=== PATIENT | male | born 1950 | race Caucasian/White ===

== ENCOUNTER 2016-10-30 14:53 | Inpatient (IN) | payer BC ==
--- NOTE | 2016-10-30 15:55 | EDM.PDOC ---
ED HISTORY OF PRESENT ILLNESS - General Chief Complaint: Respiratory Problem Stated Complaint: SOB Time Seen by Provider: 10/30/16 15:30 Source: Reports: Patient, Family, Provider History Limitations: Reports: No limitations - History of Present Illness INITIAL COMMENTS - FREE TEXT/NARRATIVE: 66-year-old male who arrived to the clinic for a surgical consultation for a possible paracentesis or thoracentesis was too short of breath and appeared unstable and anxious so was transferred to the emergency room. He is concerned that he is progressively becoming more weak, more edematous, more short of breath and not responding to his nebulizers, inhalers etc. His abdomen continues to feel distended and bloated. No fevers or chills. Denies nausea or vomiting. Severity: moderate Location, General: Reports: chest, abdomen Worsens with: Reports: Other (very little activity tolerance), Movement Associated Symptoms: Reports: cough, malaise, shortness of breath, weakness. Denies: fever/chills - Related Data Allergies/ADRs: Allergies Allergy/AdvReac Type Severity Reaction Status Date / Time multiple environmental Allergy Difficulty Uncoded 10/30/16 15:25 Breathing Home Meds: Home Meds Albuterol Sulfate [Proair Hfa] 1 - 2 puff INH Q4H PRN 10/30/16 [History] Calcium Carbonate 600 mg PO DAILY 10/30/16 [History] Cholecalciferol (Vitamin D3) [Vitamin D3] 1,000 mg PO DAILY 10/30/16 [History] Fluticasone Propionate [Flonase Allergy Relief] 2 spray RUSSELL DAILY 10/30/16 [ History] Folic Acid 1 mg PO DAILY 10/30/16 [History] Furosemide 20 mg PO DAILY 10/30/16 [History] Ipratropium/Albuterol Sulfate [Iprat-Albut 0.5-3(2.5) MG/3 ML] 1 puff INH Q4H PRN 10/30/16 [History] Multivitamin [Multivitamins] 1 tab PO DAILY 10/30/16 [History] Potassium Chloride 20 meq PO DAILY 10/30/16 [History] Spironolactone [Aldactone] 50 mg PO DAILY 10/30/16 [History] Thiamine [Vitamin B-1] 100 mg PO DAILY 10/30/16 [History] predniSONE [Prednisone] 40 mg PO ASDIRECTED 10/30/16 [History] Past Medical History HEENT History: Reports: Allergic rhinitis, Cataract Cardiovascular History: Reports: PVD, Other (see below) Other Cardiovascular History: anasarca Respiratory History: Reports: Asthma, Pneumonia, recurrent Gastrointestinal History: Reports: Cirrhosis, GERD, GI bleed, PUD, Other (see below) Other Gastrointestinal History: ascities Musculoskeletal History: Reports: Back pain, chronic, Osteoarthritis Other Musculoskeletal History: Compression fx back March 2016. Neurological History: Reports: Concussion, Head trauma Psychiatric History: Reports: Addiction Endocrine/Metabolic History: Reports: Obesity/BMI 30+ Dermatologic History: Reports: Venous stasis dermatitis - Infectious Disease History Infectious Disease History: Reports: Chicken pox, Measles, Mumps - Past Surgical History HEENT Surgical History: Reports: Cataract surgery GI Surgical History: Reports: EGD Social & Family History - Tobacco Use Smoking Status *Q: Former Smoker Years of Tobacco use: 10 Packs/Tins Daily: 1 Used Tobacco, but Quit: Yes Month Tobacco Last Used: 15year Second Hand Smoke Exposure: No - Alcohol Use Days Per Week of Alcohol Use: 7 Number of Drinks Per Day: 5 Total Drinks Per Week: 35 - Recreational Drug Use Recreational Drug Use: Yes Drug Use in Last 12 Months: No Recreational Drug Type: Reports: Marijuana/Hashish Recreational Drug Use Frequency: Not Used In Over 1 Year ED ROS GENERAL - Review of Systems Review Of Systems: See Below Constitutional: Reports: malaise, weakness. Denies: fever HEENT: Reports: Other (his tongue "hurts and swells after one of his medicines" ) Respiratory: Reports: shortness of breath, wheezing, cough Cardiovascular: Denies: Chest pain GI/Abdominal: Denies: Abdominal pain, Nausea, Vomiting : Reports: no symptoms Musculoskeletal: Denies: back pain (compression fracture has healed) Neurological: Reports: weakness. Denies: headache, syncope Psychiatric: Reports: No symptoms ED EXAM, GENERAL - Physical Exam Exam: See Below Exam Limited By: No limitations General Appearance: alert, mild distress (patient looks uncomfortable, somewhat labored respiratory effort) Eye Exam: bilateral eye: EOMI Throat/Mouth: Normal inspection Respiratory/Chest: respiratory distress (mild respiratory distress, increased effort), decreased breath sounds (decreased breath sounds at the left base), rhonchi (diffuse rhonchi and wheezes are heard bilaterally) Cardiovascular: irregularly irregular GI/Abdominal: distended, other (abdomen is firm, distended but nontender). No: tender Extremities: other (significant diffuse extremity edema with thickened leathery skin and some erythema and venous stasis change. Some edema of the upper extremities as well) Neurological: alert Psychiatric: normal affect Skin Exam: Erythema (lower extremities), Lymphangitis (lower extremities), Other (scattered bruises on the upper extremities) Course - Vital Signs Last Recorded V/S: Last Vital Signs Temp 97.8 F 10/31/16 07:20 Pulse 99 10/31/16 07:20 Resp 18 10/31/16 07:20 BP 133/81 10/31/16 07:20 Pulse Ox 100 10/31/16 07:20 - Orders/Labs/Meds Orders: Active Orders 24 hr Category Date Time Status Abdomen Ltd [US] Stat Exams 10/30/16 15:13 Taken Chest 1V Frontal [CR] Stat Exams 10/30/16 15:19 Taken EKG 12 Lead [EK] Routine Ther 10/30/16 15:57 Stop Req Medication Orders Acetaminophen (Tylenol) 650 mg PO Q4H PRN PRN Reason: Pain (Mild 1-3)/fever Last Admin: 10/31/16 00:08 Dose: 650 mg Albuterol (Ventolin Hfa) 0 gm INH Q4H PRN PRN Reason: sob Albuterol (Proventil Neb Soln) 2.5 mg NEB Q4H PRN PRN Reason: Shortness Of Breath/wheezing Albuterol/Ipratropium (Duoneb 3.0-0.5 Mg/3 Ml) 3 ml INH QIDRT [facility] Last Admin: 10/31/16 07:14 Dose: 3 ml Admin: 10/30/16 21:05 Dose: 3 ml Amoxicillin/Clavulanate Potassium (Augmentin 875 Mg/125 Mg) 1 tab PO BID [facility] Last Admin: 10/30/16 21:06 Dose: 1 tab Cholecalciferol (Vitamin D3) 1,000 units PO DAILY [facility] Fluticasone Propionate (Flonase) 0 gm RUSSELL DAILY [facility] Folic Acid (Folic Acid) 1 mg PO DAILY [facility] Guaifenesin (Mucinex) 600 mg PO BID [facility] Last Admin: 10/30/16 21:06 Dose: 600 mg Sodium Chloride (Normal Saline) 85 mls @ 3.5 mls/sec IV ASDIRECTED NEO Last Admin: 10/31/16 08:02 Dose: 3.5 mls/sec Iopamidol (Isovue-300 (61%)) 150 ml IV . DIRECTED PRN PRN Reason: RADIOLOGY EXAM Stop: 11/01/16 07:12 Last Admin: 10/31/16 08:02 Dose: 150 ml Multivitamins/Minerals (Thera M Plus) 1 tab PO DAILY [facility] Ondansetron HCl (Zofran Odt) 4 mg PO Q6H PRN PRN Reason: Nausea able to take PO Pantoprazole Sodium (Protonix) 40 mg PO ACBREAKFAST [facility] Prednisone (Prednisone) 40 mg PO DAILY [facility] Sodium Chloride (Saline Flush) 10 ml FLUSH ASDIRECTED PRN PRN Reason: Keep Vein Open Thiamine HCl (Vitamin B-1) 100 mg PO DAILY [facility] Labs: Laboratory Tests 10/30/16 10/30/16 Range/Units 15:35 15:35 WBC 10.3 (4.5-11.0) K/uL RBC 3.90 L (4.30-5.90) M/uL Hgb 13.4 (12.0-15.0) g/dL Hct 38.9 L (40.0-54.0) % MCV 100 H (80-98) fL MCH 34 H (27-31) pg MCHC 34 (32-36) % Plt Count 80 L (150-400) K/uL Neut % (Auto) 81 H (36-66) % Lymph % (Auto) 5 L (24-44) % [place] % (Auto) 13 H (2-6) % Eos % (Auto) 0 L (2-4) % Baso % (Auto) 0 (0-1) % Sodium 137 L (140-148) mmol/L Potassium 3.9 (3.6-5.2) mmol/L Chloride 99 L (100-108) mmol/L Carbon Dioxide 32 (21-32) mmol/L Anion Gap 9.9 (5.0-14.0) mmol/L BUN 16 D (7-18) mg/dL Creatinine 1.3 D (0.8-1.3) mg/dL Est Cr Clr Drug Dosing 60.89 mL/min Estimated GFR (MDRD) 56 L (>60) Glucose 140 H (74-106) mg/dL Calcium 8.0 L (8.5-10.1) mg/dL Total Bilirubin 2.6 H (0.2-1.0) mg/dL AST 55 H (15-37) U/L ALT 52 (12-78) U/L Alkaline Phosphatase 166 H (46-116) U/L Ofd-L-Ccmgderbtjl Pept 299 H (5-125) pg/mL Total Protein 6.1 L (6.4-8.2) g/dL Albumin 1.9 L (3.4-5.0) g/dL Globulin 4.2 H (2.3-3.5) g/dL Albumin/Globulin Ratio 0.5 L (1.2-2.2) Meds: Medications Generic Name Dose Route Start Last Admin Trade Name Freq PRN Reason Stop Dose Admin Acetaminophen 650 mg 10/30/16 18:07 10/31/16 00:08 Tylenol PO 650 mg Q4H PRN Administration Pain (Mild 1-3)/fever Albuterol 0 gm 10/30/16 18:07 Ventolin Hfa INH Q4H PRN sob Albuterol 2.5 mg 10/30/16 18:07 Proventil Neb Soln NEB Q4H PRN Shortness Of Breath/wheezing Albuterol/Ipratropium 3 ml 10/30/16 21:00 10/31/16 07:14 Duoneb 3.0-0.5 Mg/3 Ml INH 3 ml QIDRT NEO Administration Amoxicillin/Clavulanate Potassium 1 tab 10/30/16 21:00 10/30/16 21:06 Augmentin 875 Mg/125 Mg PO 1 tab BID NEO Administration Cholecalciferol 1,000 units 10/31/16 09:00 Vitamin D3 PO DAILY [facility] Fluticasone Propionate 0 gm 10/31/16 09:00 Flonase RUSSELL DAILY [facility] Folic Acid 1 mg 10/31/16 09:00 Folic Acid PO DAILY [facility] Guaifenesin 600 mg 10/30/16 21:00 10/30/16 21:06 Mucinex PO 600 mg BID NEO Administration Sodium Chloride 85 mls @ 3.5 mls/sec 10/31/16 07:15 10/31/16 08:02 Normal Saline IV 3.5 mls/sec ASDIRECTED NEO Administration Iopamidol 150 ml 10/31/16 07:11 10/31/16 08:02 Isovue-300 (61%) IV 11/01/16 07:12 150 ml . DIRECTED PRN Administration RADIOLOGY EXAM Multivitamins/Minerals 1 tab 10/31/16 09:00 Thera M Plus PO DAILY [facility] Ondansetron HCl 4 mg 10/30/16 18:07 Zofran Odt PO Q6H PRN Nausea able to take PO Pantoprazole Sodium 40 mg 10/31/16 07:30 Protonix PO ACBREAKFAST NEO Prednisone 40 mg 10/31/16 09:00 Prednisone PO DAILY [facility] Sodium Chloride 10 ml 10/30/16 18:07 Saline Flush FLUSH ASDIRECTED PRN Keep Vein Open Thiamine HCl 100 mg 10/31/16 09:00 Vitamin B-1 PO DAILY NEO Discontinued Medications Generic Name Dose Route Start Last Admin Trade Name Freq PRN Reason Stop Dose Admin Albuterol/Ipratropium 3 ml 10/30/16 15:57 10/30/16 16:12 Duoneb 3.0-0.5 Mg/3 Ml NEB 10/30/16 15:58 3 ml ONETIME ONE Administration Fluticasone Propionate 0 gm 10/31/16 09:00 Flonase RUSSELL DAILY [facility] Sodium Chloride 1,000 mls @ 125 mls/hr 10/30/16 18:07 Normal Saline IV 10/31/16 02:08 ASDIRECTED NEO Lidocaine HCl 10 ml 10/30/16 23:33 10/30/16 23:49 Xylocaine 2% Jelly MUCMEM 10/30/16 23:34 10 ml ONETIME ONE Administration Methylprednisolone Sodium Succinate 62.5 mg 10/30/16 18:00 10/31/16 02:12 Solu-Medrol IVPUSH 10/31/16 02:01 62.5 mg Q8H NEO Administration Sodium Chloride 10 ml 10/31/16 07:11 10/31/16 08:01 Saline Flush FLUSH 10/31/16 07:12 10 ml ONETIME ONE Administration - Re-Assessments/Exams Free Text/Narrative Re-Assessment/Exam: 10/30/16 16:00 Dr. Caputo of the surgical department briefly assessed the patient, an ultrasound of the abdomen was obtained that showed moderate ascites. threat monitoring analyst showed what appeared to be a sinus rhythm with frequent PACs so an EKG was done to rule out atrial fibrillation. CBC CMP BNP along with a 1 view chest x-ray was obtained. Chest x-ray did not show significant effusions. EKG showed sinus rhythm with numerous PACs. 10/30/16 16:19 hemoglobin and white count were normal. Bilirubin was 2.6, AST 55, alkaline phosphatase was elevated. Creatinine is 1.3 and GFR 56. This patient will be admitted for gentle hydration overnight followed by a CT scan and possible pleurocentesis tomorrow. I suspect his main underlying disease processes is cirrhosis. Dr. Robbins of the hospitalist service was consulted for evaluation and admission. Departure - Departure Time of Disposition: 18:31 Disposition: Admitted As Inpatient 68 Condition: fair Clinical Impression: COPD exacerbation, Peripheral edema, Hyperbilirubinemia Ascites Qualifiers: Ascites type: other type Qualified Code(s): R18.8 - Other ascites - My Orders Last 24 Hours: My Active Orders 10/30/16 15:19 Chest 1V Frontal [CR] Stat 10/30/16 15:57 EKG 12 Lead [EK] Routine - Assessment/Plan Last 24 Hours: My Active Orders 10/30/16 15:19 Chest 1V Frontal [CR] Stat 10/30/16 15:57 EKG 12 Lead [EK] Routine
[2016-10-30] MEDS ORDERED: Albuterol/Ipratropium 3.0-0.5 MG/3 ML Neb Soln NEB ONE (15:57)
--- NOTE | 2016-10-30 17:18 | PCM.HP ---
H&P History of Present Illness - General Date of Service: 10/30/16 Admit Problem/Dx: Admission Diagnosis/Problem Admission Diagnosis/Problem Acute bronchitis Source of Information: Patient, Family, Provider History Limitations: Reports: No limitations - History of Present Illness Initial Comments - Free Text/Narative: Barry presents to the emergency room from the neurosurgery clinic where he was sent for possible thoracentesis. He was noted to be very short of breath and was sent to the emergency room for evaluation. He reports that he has been short of breath for a couple of months but things have been getting worse over the past week or so. he is short of breath with even minimal exertion. He has a loose cough but does not produce much sputum. Occasionally he does have some mild clear sputum. He does not have chest pain or pleuritic chest pain. He doesn't think he's had fevers or chills at home. He has not been around anybody sick that he is aware of. He has noticed a significant weight gain and progressive lower extremity edema as well as edema of his abdominal wall over the past 2 months. He does not report orthopnea or PND. He was recently diagnosed with cirrhosis and started on spironolactone and furosemide. His appetite has been okay. He does not report heartburn symptoms or nausea. He has had an mild diarrhea recently but this seems to have resolved. He reports that everything was fairly normal up until and after that he has had a fairly rapid decline. Workup in the emergency room has included laboratory testing and a chest x-ray. He also had an abdominal ultrasound to look for ascites. Laboratory studies reveal thrombocytopenia, elevated bilirubin, probable acute kidney injury and mildly elevated BNP. Chest x-ray does not show evidence for infection or effusion. Abdominal ultrasound shows only mild ascites. He is wheezing and very symptomatic with probable COPD exacerbation and will be admitted for management of COPD exacerbation as well as expedited cirrhosis workup. Denies Pain Score (Numeric/FACES): 0 - Related Data Allergies/Adverse Reactions: Allergies Allergy/AdvReac Type Severity Reaction Status Date / Time multiple environmental Allergy Difficulty Uncoded 10/30/16 15:25 Breathing Home Medications: Home Meds Albuterol Sulfate [Proair Hfa] 1 - 2 puff INH Q4H PRN 10/30/16 [History] Calcium Carbonate 600 mg PO DAILY 10/30/16 [History] Cholecalciferol (Vitamin D3) [Vitamin D3] 1,000 mg PO DAILY 10/30/16 [History] Fluticasone Propionate [Flonase Allergy Relief] 2 spray RUSSELL DAILY 10/30/16 [ History] Folic Acid 1 mg PO DAILY 10/30/16 [History] Furosemide 20 mg PO DAILY 10/30/16 [History] Ipratropium/Albuterol Sulfate [Iprat-Albut 0.5-3(2.5) MG/3 ML] 1 puff INH Q4H PRN 10/30/16 [History] Multivitamin [Multivitamins] 1 tab PO DAILY 10/30/16 [History] Potassium Chloride 20 meq PO DAILY 10/30/16 [History] Spironolactone [Aldactone] 50 mg PO DAILY 10/30/16 [History] Thiamine [Vitamin B-1] 100 mg PO DAILY 10/30/16 [History] predniSONE [Prednisone] 40 mg PO ASDIRECTED 10/30/16 [History] Past Medical History HEENT History: Reports: Allergic rhinitis, Cataract Cardiovascular History: Reports: PVD, Other (see below) Other Cardiovascular History: anasarca Respiratory History: Reports: Asthma, Pneumonia, recurrent Gastrointestinal History: Reports: Cirrhosis, GERD, GI bleed, PUD, Other (see below) Other Gastrointestinal History: ascities Musculoskeletal History: Reports: Back pain, chronic, Osteoarthritis Other Musculoskeletal History: Compression fx back March 2016. Neurological History: Reports: Concussion, Head trauma Psychiatric History: Reports: Addiction Endocrine/Metabolic History: Reports: Obesity/BMI 30+ Dermatologic History: Reports: Venous stasis dermatitis - Infectious Disease History Infectious Disease History: Reports: Chicken pox, Measles, Mumps - Past Surgical History HEENT Surgical History: Reports: Cataract surgery GI Surgical History: Reports: EGD Social & Family History - Family History GI: Denies: Cirrhosis - Tobacco Use Smoking Status *Q: Former Smoker Years of Tobacco use: 10 Packs/Tins Daily: 1 Used Tobacco, but Quit: Yes Month Tobacco Last Used: 15year Second Hand Smoke Exposure: No - Caffeine Use Caffeine Use: Reports: Coffee, Soda - Alcohol Use Days Per Week of Alcohol Use: 7 Number of Drinks Per Day: 5 Total Drinks Per Week: 35 Date of Last Drink: 03/30/16 Time of Last Drink: 02:00 - Recreational Drug Use Recreational Drug Use: Yes Drug Use in Last 12 Months: No Recreational Drug Type: Reports: Marijuana/Hashish Recreational Drug Use Frequency: Not Used In Over 1 Year H&P Review of Systems - Review of Systems: Review Of Systems: See Below Free Text/Narrative: A complete 12 point review of systems was obtained. Pertinent positives and negatives are noted in the history of present illness. All other systems were reviewed and were negative except as noted. Exam - Exam Exam: See Below - Vital Signs Vital Signs: Last Vital Signs Temp 36.7 C 10/30/16 16:14 Pulse 114 H 10/30/16 16:14 Resp 21 H 10/30/16 16:14 BP 155/75 H 10/30/16 16:14 Pulse Ox 90 L 10/30/16 16:14 Weight: 108.86 kg - Exam Quality Assessment: No: supplemental oxygen, urinary catheter General: alert, oriented, cooperative. No: mild distress HEENT: PERRLA, Conjunctiva clear, Posterior pharynx clear, Scleral icterus. No : Mucosa moist & pink (dry) Neck: supple, trachea midline. No: lymphadenopathy, JVD, thyromegaly Lungs: Clear to auscultation, Normal respiratory effort Cardiovascular: regular rhythm, tachycardia, systolic murmur (llsb) Abdomen: normal bowel sounds, soft, distention. No: tenderness, mass Back Exam: normal inspection, full range of motion Extremities: edema (pitting edema to mid abdomen with massive pitting edema of both legs). No: cyanosis Skin: warm, dry, other (chronic venous stasis changes both lower legs) Neuro Extensive - Mental Status: alert, oriented x3, nl response to commands Neuro Extensive - Motor, Sensory, Reflexes: CN II-XII intact. No: dysarthria, abnormal motor, tremor Psychiatric: alert, normal affect, normal mood - Patient Data Lab Results last 24 hrs: Laboratory Results - last 24 hr 10/30/16 10/30/16 Range/Units 15:35 15:35 WBC 10.3 (4.5-11.0) K/uL RBC 3.90 L (4.30-5.90) M/uL Hgb 13.4 (12.0-15.0) g/dL Hct 38.9 L (40.0-54.0) % MCV 100 H (80-98) fL MCH 34 H (27-31) pg MCHC 34 (32-36) % Plt Count 80 L (150-400) K/uL Neut % (Auto) 81 H (36-66) % Lymph % (Auto) 5 L (24-44) % [place] % (Auto) 13 H (2-6) % Eos % (Auto) 0 L (2-4) % Baso % (Auto) 0 (0-1) % Sodium 137 L (140-148) mmol/L Potassium 3.9 (3.6-5.2) mmol/L Chloride 99 L (100-108) mmol/L Carbon Dioxide 32 (21-32) mmol/L Anion Gap 9.9 (5.0-14.0) mmol/L BUN 16 D (7-18) mg/dL Creatinine 1.3 D (0.8-1.3) mg/dL Est Cr Clr Drug Dosing 60.89 mL/min Estimated GFR (MDRD) 56 L (>60) Glucose 140 H (74-106) mg/dL Calcium 8.0 L (8.5-10.1) mg/dL Total Bilirubin 2.6 H (0.2-1.0) mg/dL AST 55 H (15-37) U/L ALT 52 (12-78) U/L Alkaline Phosphatase 166 H (46-116) U/L [id number] Pept 299 H (5-125) pg/mL Total Protein 6.1 L (6.4-8.2) g/dL Albumin 1.9 L (3.4-5.0) g/dL Globulin 4.2 H (2.3-3.5) g/dL Albumin/Globulin Ratio 0.5 L (1.2-2.2) Result Diagrams: 10/30/16 15:35 10/30/16 15:35 Imaging Impressions last 24 hrs: CXR - images personally reviewed - no evidence of mass, infiltrate or effusion. EKG INTERPRETATION EKG Date: 10/30/16 Rhythm: other (sinus tachycardia with PACs) Rate (beats/min): 106 [place]: normal P-wave: variable QRS: normal ST-T: normal QT: normal *Q Meaningful Use (ADM) - VTE *Q VTE Criteria *Q: VTE Pharmacological Contraindications *Q: Thrombocytopenia - Stroke *Q Stroke Criteria *Q: - AMI *Q AMI Criteria *Q: - Problem List (1) Acute bronchitis SNOMED Code(s): 45217722 ICD Code: J20.9 - ACUTE BRONCHITIS, UNSPECIFIED Status: Acute Current Visit: Yes (2) Acute exacerbation of chronic obstructive airways disease SNOMED Code(s): 600576261 ICD Code: J44.1 - CHRONIC OBSTRUCTIVE PULMONARY DISEASE W (ACUTE) EXACERBATION Status: Acute Current Visit: Yes (3) Cirrhosis of liver SNOMED Code(s): 13714753 ICD Code: K74.60 - UNSPECIFIED CIRRHOSIS OF LIVER Status: Acute Current Visit: Yes Qualifiers: Hepatic cirrhosis type: unspecified hepatic cirrhosis Ascites presence: with ascites Qualified Code(s): K74.60 - Unspecified cirrhosis of liver (4) Anasarca SNOMED Code(s): 018898383, 377488141 ICD Code: R60.1 - GENERALIZED EDEMA Status: Acute Current Visit: Yes (5) Acute kidney injury SNOMED Code(s): 72663987 ICD Code: N17.9 - ACUTE KIDNEY FAILURE, UNSPECIFIED Status: Acute Current Visit: Yes (6) Hyperbilirubinemia SNOMED Code(s): 33667735 ICD Code: E80.6 - OTHER DISORDERS OF BILIRUBIN METABOLISM Status: Acute Current Visit: Yes Problem List Initiated/Reviewed/Updated: Yes Orders Last 24hrs: Active Orders 24 hr Category Date Time Status Patient Status Manage Transfer [TRANSFER] Routine ADT 10/30/16 17:02 Ordered EKG Documentation Completion [RC] ASDIRECTED Care 10/30/16 15:57 Active RT Aerosol Therapy [RC] ASDIRECTED Care 10/30/16 15:57 Active Abdomen Ltd [US] Stat Exams 10/30/16 15:13 Taken Chest 1V Frontal [CR] Stat Exams 10/30/16 15:19 Taken Resuscitation Status Routine Resus Stat 10/30/16 17:04 Ordered EKG 12 Lead [EK] Routine Ther 10/30/16 15:57 Ordered Assessment/Plan Comment:: Assessment and plan - Acute bronchitis with acute exacerbation of asthma/COPD - remote history of tobacco dependence and also history of asthma. Unclear if viral or bacterial or possibly related to pulmonary edema at this time though chest x-ray does not reveal significant edema. I'm suspicious with a long duration of symptoms followed by more rapid worsening that he may have an acute bacterial infection following a viral infection. He has failed outpatient therapy with azithromycin. Is not hypoxic but has significant wheezing. -Augmentin -IV steroids this evening and prednisone tomorrow -Scheduled and as needed nebulizers -Supplement oxygen if needed -CT scan of the chest with greater than 2 months of symptoms Cirrhosis - alcoholic cirrhosis is suspected though he has an elevated albumin: protein gradient at could suggest paraproteinemia. No strong risk factors for hepatitis. he has not been on concerning medications recently. Recently diagnosed and diuretics have been initiated but there has not been any advanced imaging as of yet. Patient currently shows evidence for intravascular volume depletion. complicated by thrombocytopenia and elevated bilirubin. -hold diuretics -Gentle IV fluids -CT scan of the abdomen and pelvis in the morning -Workup for paraproteinemia in the morning -hepatitis serologies Anasarca - probably related to liver disease. Currently has intravascular volume depletion and diuretics will need to be held. I will employ mechanical methods including ULISES wraps of the legs. Plan to start with lower legs tonight and add size tomorrow to avoid returning to much fluid to the vascular space at one time. -ULISES wraps to lower legs this evening -Add ULISES wraps to the thigh tomorrow -restart diuretics as able Acute kidney injury - creatinine nearly doubled baseline creatinine of 0.7. Suspect intravascular volume depletion. -1 L of IV fluids -Repeat labs in the morning Maintenance issues - - DVT prophylaxis - mechanical with thrombocytopenia - GI prophylaxis - proton pump inhibitor - Nutrition - low sodium diet - Ojeda catheter - not indicated CODE STATUS - full code Admission justification - This patient will be admitted for inpatient services and is medically appropriate meeting medical necessity for inpatient admission as outlined in my documentation. I reasonably expect the patient will require inpatient services that span a period time over 2 midnights. I reasonably expect this patient to be discharged or transferred within 96 hours after admission to the [facility]. Disposition - anticipate discharge home after the hospital stay Primary care physician - Dr Ricki Robbins M.D.
[2016-10-30] MEDS ORDERED: Sodium Chloride 0.9% 10 ML Syringe FLUSH PRN (18:07)
[2016-10-30] MEDS ORDERED: Sodium Chloride 0.9% 1,000 ML IV SCH (18:07)
[2016-10-30] MEDS ORDERED: Albuterol 8 GM Inhaler INH PRN (18:07)
[2016-10-30] MEDS ORDERED: Ondansetron 4 MG Tab.DIS PO PRN (18:07)
[2016-10-30] MEDS: methylPREDNISolone Sodium Succinate 125 MG/2 ML SDV IVPUSH SCH (18:45)
[2016-10-30] MEDS: Albuterol/Ipratropium 3.0-0.5 MG/3 ML Neb Soln INH SCH (21:05)
[2016-10-30] MEDS: guaiFENesin 600 MG Tab.ER PO SCH (21:06)
[2016-10-30] MEDS: Amoxicillin/Clavulanate K 875-125 MG Tab PO SCH (21:06)
[2016-10-30] MEDS ORDERED: Lidocaine 2% Jelly 10 ML Urojet MUCMEM ONE (23:33)
[2016-10-31] MEDS: Acetaminophen 325 MG Tab PO PRN (00:08)
[2016-10-31] MEDS: methylPREDNISolone Sodium Succinate 125 MG/2 ML SDV IVPUSH SCH (02:12)
[2016-10-31] MEDS ORDERED: Sodium Chloride 0.9% 10 ML Syringe FLUSH ONE (07:11)
[2016-10-31] MEDS ORDERED: Iopamidol 612 MG/ML 150 ML Bottle IV PRN (07:11)
[2016-10-31] MEDS: Albuterol/Ipratropium 3.0-0.5 MG/3 ML Neb Soln INH SCH ×4 (07:14→21:26)
[2016-10-31] MEDS: Pantoprazole 40 MG Tab.CR PO SCH (08:30)
[2016-10-31] MEDS: guaiFENesin 600 MG Tab.ER PO SCH ×2 (08:33→21:26)
[2016-10-31] MEDS: Cholecalciferol (Vitamin D3) 1,000 Unit Tab PO SCH (08:33)
[2016-10-31] MEDS: Amoxicillin/Clavulanate K 875-125 MG Tab PO SCH ×2 (08:34→21:26)
[2016-10-31] MEDS: Folic Acid 1 MG Tab PO SCH (08:34)
[2016-10-31] MEDS: Thiamine 100 MG Tab PO SCH (08:34)
[2016-10-31] MEDS: Multivitamins with Iron/Calcium/Folic Acid/Minerals Tab PO SCH (08:34)
[2016-10-31] MEDS: Fluticasone Propionate Nasal Spray 16 GM Bottle NAS SCH (08:34)
[2016-10-31] MEDS: predniSONE 20 MG Tab PO SCH (08:34)
--- NOTE | 2016-10-31 08:35 | CR ---
Chest 1V Frontal INDICATION: dyspnea, chf FINDINGS: Comparison 10/26/2016. No interval change. Persistent opacification of the left lower lobe. Right lung remains clear. Chest otherwise unremarkable.
--- NOTE | 2016-10-31 08:36 | US ---
Abdomen Ltd INDICATION: check for ascites FINDINGS: Moderate amount of ascites in the abdomen, most marked in the right lower quadrant. IMPRESSION: Moderate ascites.
[2016-10-31] MEDS ORDERED: Fluticasone Propionate Nasal Spray 16 GM Bottle NAS SCH ×2 (09:00)
--- NOTE | 2016-10-31 10:29 | CT ---
Chest Abdomen Pelvis w Cont Total DLP 1401 mGycm. INDICATION: persistent cough, new cirrhosis COMPARISON: None. FINDINGS: Moderate to large left pleural effusion with associated compressive atelectasis. Bilateral gynecomastia. Groundglass and interstitial infiltrate in the right upper lobe anteriorly is likely infectious or inflammatory. 3 mm groundglass pulmonary nodule adjacent to the right major fissure on series 3 image 30. Vertebra plana of L3. Minimal compression superior endplate of L2. Hypertrophic changes thoracic spine. Cirrhotic configuration of the liver with evidence of portal venous hyperten shauna with paraesophageal and splenic varices. Recanalization of the periumbilical vein. Moderate roberto sarca. Bilateral pars defects at L5. Moderate to large amount of ascites with stranding in the mesen rosalee. Ojeda catheter in place. Low-attenuation defect in the lateral aspect of the spleen is nonspec ific. IMPRESSION: 1. Advanced cirrhosis with evidence of portal venous hypertension and ascites. 2. Inflammatory infiltrate right upper lobe. 3. Compression fractures of L1 and L3, progressed since CT 03/30/2016. 4. Moderate to large left pleural effusion. 5. Low-attenuation defect in the lateral aspect of the spleen is nonspecific.
[2016-10-31] MEDS ORDERED: Magnesium Sulfate/Water 2 GM in Premix Bag 1 BAG IV SCH (11:00)
--- NOTE | 2016-10-31 11:00 | PCM.PN ---
- General Info Date of Service: 10/31/16 Functional Status: Reports: pain controlled, tolerating diet - Review of Systems General: Reports: weakness. Denies: fever Pulmonary: Reports: shortness of breath, cough Gastrointestinal: Reports: Abdominal pain Systems Review Comment:: Some difficulty with increasing shortness of breath overnight but this seems to have settled down with the use of nebulizer treatments. Still feels short of breath and audible upper respiratory type breath sounds. Lower extremity edema persists and is an impressive. Abdominal edema seems a little better today. No complaints of pain or nausea. CT scan of the chest shows right upper lobe pneumonia and CT of the abdomen and pelvis shows significant cirrhosis of the liver with evidence for portal hypertension as well as moderate ascites. - Patient Data Vitals - most recent: Last Vital Signs Temp 36.7 C 10/31/16 10:36 Pulse 95 10/31/16 10:36 Resp 20 10/31/16 10:36 BP 138/71 10/31/16 10:36 Pulse Ox 97 10/31/16 10:36 Weight - most recent: 127.2 kg I&O - last 24 hours: Intake & Output 10/30/16 10/31/16 10/31/16 22:59 06:59 14:59 Intake Total 672 240 Output Total 400 Balance 272 240 Lab Results last 24 hrs: Laboratory Results - last 24 hr 10/31/16 10/31/16 10/31/16 Range/Units 00:00 04:10 04:10 WBC 8.8 (4.5-11.0) K/uL RBC 3.87 L (4.30-5.90) M/uL Hgb 13.1 (12.0-15.0) g/dL Hct 38.2 L (40.0-54.0) % MCV 99 H (80-98) fL MCH 34 H (27-31) pg MCHC 34 (32-36) % Plt Count 71 L (150-400) K/uL ESR 14 (0-20) mm/hr PT 15.9 H (9.5-12.0) sec INR 1.48 H (0.80-1.20) Sodium (140-148) mmol/L Potassium (3.6-5.2) mmol/L Chloride (100-108) mmol/L Carbon Dioxide (21-32) mmol/L Anion Gap (5.0-14.0) mmol/L BUN (7-18) mg/dL Creatinine (0.8-1.3) mg/dL Est Cr Clr Drug Dosing mL/min Estimated GFR (MDRD) (>60) Glucose (74-106) mg/dL Calcium (8.5-10.1) mg/dL Magnesium (1.8-2.4) mg/dL Total Bilirubin (0.2-1.0) mg/dL AST (15-37) U/L ALT (12-78) U/L Alkaline Phosphatase (46-116) U/L C-Reactive Protein (0.0-0.3) mg/dL Total Protein (6.4-8.2) g/dL Albumin (3.4-5.0) g/dL Globulin (2.3-3.5) g/dL Albumin/Globulin Ratio (1.2-2.2) TSH, Ultra Sensitive (0.358-3.740) uIU/mL Urine Color Brown Urine Appearance Slightly cloudy Urine pH 5.0 (4.5-8.0) Ur Specific [place] 1.020 (1.008-1.030) Urine Protein Trace (NEGATIVE) mg/dL Urine Glucose (UA) Normal (NEGATIVE) mg/dL Urine Ketones Negative (NEGATIVE) mg/dL Urine Occult Blood Large (NEGATIVE) Urine Nitrite Negative (NEGAITVE) Urine Bilirubin Small (NEGATIVE) Urine Urobilinogen 4 (NORMAL) mg/dL Ur Leukocyte Esterase Negative (NEGATIVE) Urine RBC 5-10 H (0-5) Urine WBC 0-5 (0-5) Ur Epithelial Cells Rare Amorphous Sediment Many Urine Bacteria Moderate Urine Mucus Not seen 10/31/16 Range/Units 04:10 WBC (4.5-11.0) K/uL RBC (4.30-5.90) M/uL Hgb (12.0-15.0) g/dL Hct (40.0-54.0) % MCV (80-98) fL MCH (27-31) pg MCHC (32-36) % Plt Count (150-400) K/uL ESR (0-20) mm/hr PT (9.5-12.0) sec INR (0.80-1.20) Sodium 136 L (140-148) mmol/L Potassium 4.2 (3.6-5.2) mmol/L Chloride 100 (100-108) mmol/L Carbon Dioxide 32 (21-32) mmol/L Anion Gap 8.2 (5.0-14.0) mmol/L BUN 17 (7-18) mg/dL Creatinine 1.3 (0.8-1.3) mg/dL Est Cr Clr Drug Dosing 61.14 mL/min Estimated GFR (MDRD) 56 L (>60) Glucose 136 H (74-106) mg/dL Calcium 7.8 L (8.5-10.1) mg/dL Magnesium 1.3 L (1.8-2.4) mg/dL Total Bilirubin 2.4 H (0.2-1.0) mg/dL AST 55 H (15-37) U/L ALT 52 (12-78) U/L Alkaline Phosphatase 173 H (46-116) U/L C-Reactive Protein 1.62 H (0.0-0.3) mg/dL Total Protein 6.0 L (6.4-8.2) g/dL Albumin 1.8 L (3.4-5.0) g/dL Globulin 4.2 H (2.3-3.5) g/dL Albumin/Globulin Ratio 0.4 L (1.2-2.2) TSH, Ultra Sensitive 2.662 (0.358-3.740) uIU/mL Urine Color Urine Appearance Urine pH (4.5-8.0) Ur Specific [place] (1.008-1.030) Urine Protein (NEGATIVE) mg/dL Urine Glucose (UA) (NEGATIVE) mg/dL Urine Ketones (NEGATIVE) mg/dL Urine Occult Blood (NEGATIVE) Urine Nitrite (NEGAITVE) Urine Bilirubin (NEGATIVE) Urine Urobilinogen (NORMAL) mg/dL Ur Leukocyte Esterase (NEGATIVE) Urine RBC (0-5) Urine WBC (0-5) Ur Epithelial Cells Amorphous Sediment Urine Bacteria Urine Mucus Med Orders - Current: Current Medications Acetaminophen (Tylenol) 650 mg PO Q4H PRN PRN Reason: Pain (Mild 1-3)/fever Last Admin: 10/31/16 00:08 Dose: 650 mg Albuterol (Ventolin Hfa) 0 gm INH Q4H PRN PRN Reason: sob Albuterol (Proventil Neb Soln) 2.5 mg NEB Q4H PRN PRN Reason: Shortness Of Breath/wheezing Albuterol/Ipratropium (Duoneb 3.0-0.5 Mg/3 Ml) 3 ml INH QIDRT [facility] Last Admin: 10/31/16 10:24 Dose: 3 ml Amoxicillin/Clavulanate Potassium (Augmentin 875 Mg/125 Mg) 1 tab PO BID [facility] Last Admin: 10/31/16 08:34 Dose: 1 tab Cholecalciferol (Vitamin D3) 1,000 units PO DAILY [facility] Last Admin: 10/31/16 08:33 Dose: 1,000 units Fluticasone Propionate (Flonase) 0 gm RUSSELL DAILY [facility] Last Admin: 10/31/16 08:34 Dose: 2 spray Folic Acid (Folic Acid) 1 mg PO DAILY [facility] Last Admin: 10/31/16 08:34 Dose: 1 mg Guaifenesin (Mucinex) 600 mg PO BID [facility] Last Admin: 10/31/16 08:33 Dose: 600 mg Sodium Chloride (Normal Saline) 85 mls @ 3.5 mls/sec IV ASDIRECTED [facility] Last Admin: 10/31/16 08:02 Dose: 3.5 mls/sec Magnesium Sulfate 2 gm/ Premix 50 mls @ 25 mls/hr IV Q6H [facility] Stop: 11/01/16 06:59 Last Admin: 10/31/16 10:43 Dose: 25 mls/hr Iopamidol (Isovue-300 (61%)) 150 ml IV . DIRECTED PRN PRN Reason: RADIOLOGY EXAM Stop: 11/01/16 07:12 Last Admin: 10/31/16 08:02 Dose: 150 ml Multivitamins/Minerals (Thera M Plus) 1 tab PO DAILY [facility] Last Admin: 10/31/16 08:34 Dose: 1 tab Ondansetron HCl (Zofran Odt) 4 mg PO Q6H PRN PRN Reason: Nausea able to take PO Pantoprazole Sodium (Protonix) 40 mg PO ACBREAKFAST [facility] Last Admin: 10/31/16 08:30 Dose: 40 mg Prednisone (Prednisone) 40 mg PO DAILY [facility] Last Admin: 10/31/16 08:34 Dose: 40 mg Sodium Chloride (Saline Flush) 10 ml FLUSH ASDIRECTED PRN PRN Reason: Keep Vein Open Thiamine HCl (Vitamin B-1) 100 mg PO DAILY [facility] Last Admin: 10/31/16 08:34 Dose: 100 mg Discontinued Medications Albuterol/Ipratropium (Duoneb 3.0-0.5 Mg/3 Ml) 3 ml NEB ONETIME ONE Stop: 10/30/16 15:58 Last Admin: 10/30/16 16:12 Dose: 3 ml Fluticasone Propionate (Flonase) 0 gm RUSSELL DAILY [facility] Sodium Chloride (Normal Saline) 1,000 mls @ 125 mls/hr IV ASDIRECTED [facility] Stop: 10/31/16 02:08 Lidocaine HCl (Xylocaine 2% Jelly) 10 ml MUCMEM ONETIME ONE Stop: 10/30/16 23:34 Last Admin: 10/30/16 23:49 Dose: 10 ml Methylprednisolone Sodium Succinate (Solu-Medrol) 62.5 mg IVPUSH Q8H [facility] Stop: 10/31/16 02:01 Last Admin: 10/31/16 02:12 Dose: 62.5 mg Sodium Chloride (Saline Flush) 10 ml FLUSH ONETIME ONE Stop: 10/31/16 07:12 Last Admin: 10/31/16 08:01 Dose: 10 ml - Exam Quality Assessment: supplemental oxygen General: alert, oriented, cooperative, no acute distress Neck: supple Lungs: Rales (few upper anterior lungs), Rhonchi (few posterior inferior both lungs), Wheezing (mild exp on left) Cardiovascular: regular rate, regular rhythm, murmurs Abdomen: soft, distension. No: tenderness Extremities: no cyanosis, edema (massive pitting edema from feet up to mid abdomen ) Skin: warm, dry Psy/Mental Status: alert, normal affect - Problem List & Annotations (1) Right upper lobe pneumonia SNOMED Code(s): 584055671 Code(s): J18.1 - LOBAR PNEUMONIA, UNSPECIFIED ORGANISM Status: Acute Current Visit: Yes Qualifiers: Pneumonia type: due to unspecified organism Qualified Code(s): J18.1 - Lobar pneumonia, unspecified organism (2) Acute exacerbation of chronic obstructive airways disease SNOMED Code(s): 423814550 Code(s): J44.1 - CHRONIC OBSTRUCTIVE PULMONARY DISEASE W (ACUTE) EXACERBATION Status: Acute Current Visit: Yes (3) Cirrhosis of liver SNOMED Code(s): 01351442 Code(s): K74.60 - UNSPECIFIED CIRRHOSIS OF LIVER Status: Acute Current Visit: Yes Qualifiers: Hepatic cirrhosis type: unspecified hepatic cirrhosis Ascites presence: with ascites Qualified Code(s): K74.60 - Unspecified cirrhosis of liver (4) Anasarca SNOMED Code(s): 154918709, 035764417 Code(s): R60.1 - GENERALIZED EDEMA Status: Acute Current Visit: Yes (5) Acute kidney injury SNOMED Code(s): 56847990 Code(s): N17.9 - ACUTE KIDNEY FAILURE, UNSPECIFIED Status: Acute Current Visit: Yes (6) Hyperbilirubinemia SNOMED Code(s): 84665149 Code(s): E80.6 - OTHER DISORDERS OF BILIRUBIN METABOLISM Status: Acute Current Visit: Yes - Problem List Review Problem List Initiated/Reviewed/Updated: Yes - My Orders Last 24 Hours: My Active Orders 10/30/16 17:04 Resuscitation Status Routine 10/30/16 18:07 Patient Status [ADT] Routine Intake and Output [RC] QSHIFT Notify Provider Vital Signs [RC] ASDIRECTED Oxygen Therapy [RC] PRN Peripheral IV Care [RC] . DIRECTED RT Aerosol Therapy [RC] ASDIRECTED Up With Assistance [RC] ASDIRECTED VTE/DVT Education [RC] Per Unit Routine Vital Signs [RC] Q4H Acetaminophen [Tylenol] 650 mg PO Q4H PRN Albuterol [Proventil Neb Soln] 2.5 mg NEB Q4H PRN Ondansetron [Zofran ODT] 4 mg PO Q6H PRN Sodium Chloride 0.9% [Saline Flush] 10 ml FLUSH ASDIRECTED PRN Peripheral IV Insertion Adult [OM.PC] Routine VTE Pharmacological Contraindications [AST] Per Unit Routine 10/30/16 21:00 Amoxicillin/Clavulanate K [Augmentin 875 MG/125 MG] 1 tab PO BID guaiFENesin [Mucinex] 600 mg PO BID 10/30/16 21:11 ULISES Bandage [Elastic Wrap] [OM.PC] Routine 10/30/16 23:19 Convert IV to Saline Lock [OM.PC] Routine 10/30/16 23:20 Urinary Catheter Assessment [RC] ASDIRECTED 10/30/16 23:30 Insert Ojeda Catheter [Insert Urinary Catheter] [OM.PC] Q24H 10/31/16 04:10 HEPATITIS B CORE,AB TOTAL [REF] AM HEPATITIS B SURFACE ANTIGEN [REF] AM HEPATITIS C ANTIBODY [REF] AM IMMUNOFIX,SERUM [REF] AM PROTEIN ELECTROPHORESIS,SERUM [REF] AM 10/31/16 07:11 Iopamidol [Isovue-300 (61%)] 150 ml IV . DIRECTED PRN 10/31/16 07:15 Sodium Chloride 0.9% [Normal Saline] 85 ml IV ASDIRECTED 10/31/16 07:30 Pantoprazole [Protonix] 40 mg PO ACBREAKFAST 10/31/16 08:00 Height and Weight [RC] DAILY 10/31/16 09:00 Fluticasone Propionate [Flonase] 0 gm RUSSELL DAILY 10/31/16 10:58 Discontinue Telemetry Monitoring [Cardiac Monitoring Discontinue] [RC] Click to Edit ULISES Bandage [Elastic Wrap] [OM.PC] Routine 10/31/16 11:00 Levofloxacin [Levaquin] 250 mg PO Q24H Levofloxacin [Levaquin] 500 mg PO Q24H Magnesium Sulfate/Water [Magnesium Sulfate 2 GM in Water 50 ML] 2 gm Premix Bag 1 bag IV Q6H 10/31/16 14:00 Furosemide [Lasix] 40 mg PO BIDDIURETIC Spironolactone [Aldactone] 25 mg PO BIDDIURETIC 11/01/16 05:00 BASIC METABOLIC PANEL,BMP [CHEM] Timed CBC W/O DIFF,HEMOGRAM [HEME] Timed (1) 11/01/16 07:00 Echo Comp wo Cont [US] Routine - Plan Plan:: Assessment and plan - Right upper lobe pneumonia with acute exacerbation of asthma/COPD - CT scan revealed pneumonia that was not appreciated on chest x-ray. He has had recent outpatient antibiotic therapy. He is now requiring supplemental oxygen. -Augmentin plus levofloxacin -Continue prednisone -Scheduled and as needed nebulizers -Supplement oxygen if needed Cirrhosis - alcoholic cirrhosis is suspected though he has an elevated albumin: protein gradient at could suggest paraproteinemia. CT scan documented significant cirrhosis. Workup largely pending at this time. May benefit from therapeutic paracentesis. -Restart diuretics -Saline lock IV -Workup for paraproteinemia pending -hepatitis serologies pending Anasarca - probably related to liver disease. Using mechanical methods including ULISES wraps of the legs. -ULISES wraps to both legs from foot to thigh -restart diuretics today Acute kidney injury - creatinine nearly doubled baseline creatinine of 0.7. Creatinine level stable since admission even with gentle hydration. - Saline lock IV -Restart diuretics -Repeat labs in the morning Maintenance issues - - DVT prophylaxis - mechanical with thrombocytopenia - GI prophylaxis - proton pump inhibitor - Nutrition - low sodium diet - Ojeda catheter - placed last night for strict intake and output monitoring with some respiratory compromise Disposition - anticipate discharge home after the hospital stay Syed Robbins M.D.
[2016-10-31] MEDS: Levofloxacin 250 MG Tab PO SCH (12:06)
[2016-10-31] MEDS: Levofloxacin 500 MG Tab PO SCH (12:07)
[2016-10-31] MEDS: Spironolactone 25 MG Tab PO SCH (13:45)
[2016-10-31] MEDS: Furosemide 40 MG Tab PO SCH (13:45)
[2016-10-31] MEDS: Albuterol 0.083% 2.5 MG/3 ML Neb Soln NEB PRN (18:53)
[2016-11-01] MEDS: Codeine/guaiFENesin 100mg-10 MG/5 ML Syrup 10 ML Cup PO PRN ×3 (01:01→22:00)
[2016-11-01] MEDS: Albuterol/Ipratropium 3.0-0.5 MG/3 ML Neb Soln INH SCH ×4 (07:28→20:37)
[2016-11-01] MEDS: Spironolactone 25 MG Tab PO SCH ×2 (07:30→17:25)
[2016-11-01] MEDS: Pantoprazole 40 MG Tab.CR PO SCH (07:30)
[2016-11-01] MEDS: Furosemide 40 MG Tab PO SCH ×2 (07:30→17:26)
--- NOTE | 2016-11-01 07:45 | PCM.SN ---
- Free Text/Narrative Note: time 00:53; requesting cough syrup a; painful cough p; robitussin AC 10ml po every 4 hr prn cough
[2016-11-01] MEDS ORDERED: Lidocaine 4% Top Soln 50 ML Bottle ONE (08:35)
--- NOTE | 2016-11-01 09:14 | PCM.PN ---
- General Info Date of Service: 11/01/16 Functional Status: Reports: pain controlled, tolerating diet - Review of Systems General: Reports: weakness Pulmonary: Reports: shortness of breath, cough Cardiovascular: Reports: edema Systems Review Comment:: No acute events overnight. Still requiring supplemental oxygen to maintain saturations. CT scan yesterday showed fairly large left pleural effusion and ascites. Right upper lobe pneumonia also noted. He thinks that his abdominal distention and swelling is little better. Still has impressive pitting edema of right arm and both legs. Having trouble sleeping at night. Appetite is excellent. Urine output is borderline. - Patient Data Vitals - most recent: Last Vital Signs Temp 36.8 C 11/01/16 07:00 Pulse 112 H 11/01/16 07:00 Resp 20 11/01/16 07:00 BP 124/79 11/01/16 07:00 Pulse Ox 94 L 11/01/16 07:00 Weight - most recent: 127.2 kg I&O - last 24 hours: Intake & Output 10/31/16 11/01/16 11/01/16 22:59 06:59 14:59 Intake Total 534 600 Output Total 400 375 100 Balance 134 225 -100 Lab Results last 24 hrs: Laboratory Results - last 24 hr 11/01/16 11/01/16 Range/Units 04:10 04:10 WBC 13.5 H (4.5-11.0) K/uL RBC 3.65 L (4.30-5.90) M/uL Hgb 12.4 (12.0-15.0) g/dL Hct 36.3 L (40.0-54.0) % MCV 100 H (80-98) fL MCH 34 H (27-31) pg MCHC 34 (32-36) % Plt Count 71 L (150-400) K/uL Sodium 136 L (140-148) mmol/L Potassium 4.1 (3.6-5.2) mmol/L Chloride 101 (100-108) mmol/L Carbon Dioxide 30 (21-32) mmol/L Anion Gap 9.1 (5.0-14.0) mmol/L BUN 20 H (7-18) mg/dL Creatinine 1.4 H (0.8-1.3) mg/dL Est Cr Clr Drug Dosing 56.54 mL/min Estimated GFR (MDRD) 51 L (>60) Glucose 155 H (74-106) mg/dL Calcium 7.7 L (8.5-10.1) mg/dL Med Orders - Current: Current Medications Acetaminophen (Tylenol) 650 mg PO Q4H PRN PRN Reason: Pain (Mild 1-3)/fever Last Admin: 10/31/16 00:08 Dose: 650 mg Albuterol (Ventolin Hfa) 0 gm INH Q4H PRN PRN Reason: sob Albuterol (Proventil Neb Soln) 2.5 mg NEB Q4H PRN PRN Reason: Shortness Of Breath/wheezing Last Admin: 10/31/16 18:53 Dose: 2.5 mg Albuterol/Ipratropium (Duoneb 3.0-0.5 Mg/3 Ml) 3 ml INH QIDRT [facility] Last Admin: 11/01/16 07:28 Dose: 3 ml Amoxicillin/Clavulanate Potassium (Augmentin 875 Mg/125 Mg) 1 tab PO BID [facility] Last Admin: 10/31/16 21:26 Dose: 1 tab Cholecalciferol (Vitamin D3) 1,000 units PO DAILY [facility] Last Admin: 10/31/16 08:33 Dose: 1,000 units Fluticasone Propionate (Flonase) 0 gm RUSSELL DAILY [facility] Last Admin: 10/31/16 08:34 Dose: 2 spray Folic Acid (Folic Acid) 1 mg PO DAILY [facility] Last Admin: 10/31/16 08:34 Dose: 1 mg Furosemide (Lasix) 40 mg PO BIDDIURETIC [facility] Last Admin: 11/01/16 07:30 Dose: 40 mg Guaifenesin (Mucinex) 600 mg PO BID [facility] Last Admin: 10/31/16 21:26 Dose: 600 mg Guaifenesin/Codeine Phosphate (Robitussin Ac) 10 ml PO Q4H PRN PRN Reason: Cough Last Admin: 11/01/16 05:03 Dose: 10 ml Ketorolac Tromethamine (Toradol) 30 mg IM ONETIME ONE Stop: 11/01/16 09:31 Levofloxacin (Levaquin) 250 mg PO Q24H [facility] Last Admin: 10/31/16 12:06 Dose: 250 mg Levofloxacin (Levaquin) 500 mg PO Q24H [facility] Last Admin: 10/31/16 12:07 Dose: 500 mg Multivitamins/Minerals (Thera M Plus) 1 tab PO DAILY [facility] Last Admin: 10/31/16 08:34 Dose: 1 tab Ondansetron HCl (Zofran Odt) 4 mg PO Q6H PRN PRN Reason: Nausea able to take PO Pantoprazole Sodium (Protonix) 40 mg PO ACBREAKFAST [facility] Last Admin: 11/01/16 07:30 Dose: 40 mg Prednisone (Prednisone) 40 mg PO DAILY [facility] Last Admin: 10/31/16 08:34 Dose: 40 mg Sodium Chloride (Saline Flush) 10 ml FLUSH ASDIRECTED PRN PRN Reason: Keep Vein Open Spironolactone (Aldactone) 25 mg PO BIDDIURETIC [facility] Last Admin: 11/01/16 07:30 Dose: 25 mg Thiamine HCl (Vitamin B-1) 100 mg PO DAILY [facility] Last Admin: 10/31/16 08:34 Dose: 100 mg Discontinued Medications Albuterol/Ipratropium (Duoneb 3.0-0.5 Mg/3 Ml) 3 ml NEB ONETIME ONE Stop: 10/30/16 15:58 Last Admin: 10/30/16 16:12 Dose: 3 ml Fluticasone Propionate (Flonase) 0 gm RUSSELL DAILY [facility] Sodium Chloride (Normal Saline) 1,000 mls @ 125 mls/hr IV ASDIRECTED [facility] Stop: 10/31/16 02:08 Sodium Chloride (Normal Saline) 85 mls @ 3.5 mls/sec IV ASDIRECTED [facility] Last Admin: 10/31/16 08:02 Dose: 3.5 mls/sec Magnesium Sulfate 2 gm/ Premix 50 mls @ 25 mls/hr IV Q6H [facility] Stop: 10/31/16 14:00 Last Admin: 10/31/16 10:43 Dose: 25 mls/hr Magnesium Sulfate 2 gm/ Sodium (Chloride) 54 mls @ 27 mls/hr IV Q6H [facility] Stop: 11/01/16 06:59 Last Admin: 11/01/16 05:00 Dose: 27 mls/hr Iopamidol (Isovue-300 (61%)) 150 ml IV . DIRECTED PRN PRN Reason: RADIOLOGY EXAM Stop: 11/01/16 07:12 Last Admin: 10/31/16 08:02 Dose: 150 ml Lidocaine HCl (Xylocaine 2% Jelly) 10 ml MUCMEM ONETIME ONE Stop: 10/30/16 23:34 Last Admin: 10/30/16 23:49 Dose: 10 ml Lidocaine HCl (Xylocaine 4% Top Soln) Confirm Administered Dose 50 ml .ROUTE .STK-MED ONE Stop: 11/01/16 08:36 Methylprednisolone Sodium Succinate (Solu-Medrol) 62.5 mg IVPUSH Q8H [facility] Stop: 10/31/16 02:01 Last Admin: 10/31/16 02:12 Dose: 62.5 mg Sodium Chloride (Saline Flush) 10 ml FLUSH ONETIME ONE Stop: 10/31/16 07:12 Last Admin: 10/31/16 08:01 Dose: 10 ml - Exam Quality Assessment: supplemental oxygen General: alert, oriented, cooperative, no acute distress Neck: supple Lungs: Normal respiratory effort, Decreased breath sounds (left lung base), Rales (left lung base) Cardiovascular: regular rhythm, no murmurs, tachycardia Abdomen: soft, distension Extremities: edema (pitting edema of both legs from feet to the thigh. Edema extends up on the abdomen, right > left) Skin: warm, dry Psy/Mental Status: alert, normal affect - Problem List & Annotations (1) Right upper lobe pneumonia SNOMED Code(s): 552039121 Code(s): J18.1 - LOBAR PNEUMONIA, UNSPECIFIED ORGANISM Status: Acute Current Visit: Yes Qualifiers: Pneumonia type: due to unspecified organism Qualified Code(s): J18.1 - Lobar pneumonia, unspecified organism (2) Acute exacerbation of chronic obstructive airways disease SNOMED Code(s): 367954683 Code(s): J44.1 - CHRONIC OBSTRUCTIVE PULMONARY DISEASE W (ACUTE) EXACERBATION Status: Acute Current Visit: Yes (3) Cirrhosis of liver SNOMED Code(s): 36326753 Code(s): K74.60 - UNSPECIFIED CIRRHOSIS OF LIVER Status: Acute Current Visit: Yes Qualifiers: Hepatic cirrhosis type: unspecified hepatic cirrhosis Ascites presence: with ascites Qualified Code(s): K74.60 - Unspecified cirrhosis of liver (4) Anasarca SNOMED Code(s): 449340973, 649018611 Code(s): R60.1 - GENERALIZED EDEMA Status: Acute Current Visit: Yes (5) Acute kidney injury SNOMED Code(s): 70060828 Code(s): N17.9 - ACUTE KIDNEY FAILURE, UNSPECIFIED Status: Acute Current Visit: Yes (6) Hyperbilirubinemia SNOMED Code(s): 91136865 Code(s): E80.6 - OTHER DISORDERS OF BILIRUBIN METABOLISM Status: Acute Current Visit: Yes - Problem List Review Problem List Initiated/Reviewed/Updated: Yes - My Orders Last 24 Hours: My Active Orders 10/31/16 09:00 Fluticasone Propionate [Flonase] 0 gm RUSSELL DAILY 10/31/16 10:58 ULISES Bandage [Elastic Wrap] [OM.PC] Routine 10/31/16 11:00 Levofloxacin [Levaquin] 250 mg PO Q24H Levofloxacin [Levaquin] 500 mg PO Q24H 10/31/16 12:53 URINE ELP INTERPRETATION [REF] Routine 10/31/16 14:00 Furosemide [Lasix] 40 mg PO BIDDIURETIC Spironolactone [Aldactone] 25 mg PO BIDDIURETIC 11/01/16 07:00 Echo Comp wo Cont [US] Routine 11/01/16 09:04 Ketorolac [Toradol] 30 mg IM ONETIME ONE 11/01/16 Breakfast NPO Now [Nothing per Oral Now Diet] [DIET] - Plan Plan:: Assessment and plan - Right upper lobe pneumonia with acute exacerbation of asthma/COPD - CT scan revealed pneumonia that was not appreciated on chest x-ray. He has had recent outpatient antibiotic therapy. He continues to require supplemental oxygen. Respiratory status probably complicated by a pleural effusion as discussed below. -Bronchoscopy today -Augmentin plus levofloxacin -Continue prednisone -Scheduled and as needed nebulizers -Supplement oxygen if needed Large left pleural effusion - I suspect this is a complication of his advanced liver disease. It is compromising his respiratory status. -Diagnostic and therapeutic thoracentesis with Dr. Caputo Cirrhosis - alcoholic cirrhosis is suspected though he has an elevated albumin: protein gradient at could suggest paraproteinemia. CT scan documented significant cirrhosis. Workup largely pending at this time. May benefit from therapeutic paracentesis. -Continue diuretics, try to increase today if able -Consider paracentesis -Saline lock IV -Workup for paraproteinemia pending -hepatitis serologies pending Anasarca - probably related to liver disease. Using mechanical methods including ULISES wraps of the legs. Echocardiogram completed this morning and is pending. -ULISES wraps to both legs from foot to thigh -restart diuretics today Acute kidney injury - creatinine nearly doubled baseline creatinine of 0.7 but stable since admission. - Saline lock IV -Continue diuretics -Repeat labs in the morning Maintenance issues - - DVT prophylaxis - mechanical with thrombocytopenia - GI prophylaxis - proton pump inhibitor - Nutrition - low sodium diet - Ojeda catheter - placed 10/30 for strict intake and output monitoring with some respiratory compromise, will remain in place through the day today and will be reassessed tomorrow Disposition - anticipate discharge home after the hospital stay Syed Robbins M.D.
[2016-11-01] MEDS ORDERED: Ketorolac 30 MG/ML SDV IM ONE (09:30)
[2016-11-01] MEDS ORDERED: Midazolam 1 MG/ML 2 ML SDV ONE (10:44)
[2016-11-01] MEDS ORDERED: Propofol 200 MG/20 ML SDV ONE (10:44)
[2016-11-01] MEDS ORDERED: fentaNYL 100 MCG/2 ML SDV ONE (10:44)
[2016-11-01] MEDS: Levofloxacin 250 MG Tab PO SCH (12:02)
[2016-11-01] MEDS: Amoxicillin/Clavulanate K 875-125 MG Tab PO SCH ×2 (12:02→20:49)
[2016-11-01] MEDS: Levofloxacin 500 MG Tab PO SCH (12:03)
[2016-11-01] MEDS: predniSONE 20 MG Tab PO SCH (12:05)
[2016-11-01] MEDS ORDERED: Lidocaine 4% Top Soln 4 ML LTA Syringe ONE (14:31)
[2016-11-01] MEDS: Fluticasone Propionate Nasal Spray 16 GM Bottle NAS SCH ×2 (17:23→22:18)
[2016-11-01] MEDS: guaiFENesin 600 MG Tab.ER PO SCH ×2 (17:24→20:49)
[2016-11-01] MEDS: Multivitamins with Iron/Calcium/Folic Acid/Minerals Tab PO SCH (17:24)
[2016-11-01] MEDS: Thiamine 100 MG Tab PO SCH (17:24)
[2016-11-01] MEDS: Cholecalciferol (Vitamin D3) 1,000 Unit Tab PO SCH (17:25)
[2016-11-01] MEDS: Folic Acid 1 MG Tab PO SCH (17:26)
[2016-11-02] MEDS: Albuterol/Ipratropium 3.0-0.5 MG/3 ML Neb Soln INH SCH ×4 (07:21→20:04)
[2016-11-02] MEDS: Amoxicillin/Clavulanate K 875-125 MG Tab PO SCH ×2 (09:27→20:04)
[2016-11-02] MEDS: Spironolactone 25 MG Tab PO SCH ×2 (09:27→14:07)
[2016-11-02] MEDS: Multivitamins with Iron/Calcium/Folic Acid/Minerals Tab PO SCH (09:27)
[2016-11-02] MEDS: Thiamine 100 MG Tab PO SCH (09:27)
[2016-11-02] MEDS: Furosemide 40 MG Tab PO SCH (09:27)
[2016-11-02] MEDS: Pantoprazole 40 MG Tab.CR PO SCH (09:27)
[2016-11-02] MEDS: predniSONE 20 MG Tab PO SCH (09:28)
[2016-11-02] MEDS: Cholecalciferol (Vitamin D3) 1,000 Unit Tab PO SCH (09:28)
[2016-11-02] MEDS: Folic Acid 1 MG Tab PO SCH (09:28)
[2016-11-02] MEDS: guaiFENesin 600 MG Tab.ER PO SCH ×2 (09:28→20:04)
[2016-11-02] MEDS: Fluticasone Propionate Nasal Spray 16 GM Bottle NAS SCH (09:28)
--- NOTE | 2016-11-02 10:26 | PCM.PN ---
- General Info Date of Service: 11/02/16 Functional Status: Reports: pain controlled, tolerating diet, ambulating - Review of Systems General: Reports: weakness Pulmonary: Reports: shortness of breath Cardiovascular: Reports: edema Systems Review Comment:: patient had thoracentesis with removal of approximately 2 L of fluid yesterday followed by unremarkable bronchoscopy and paracentesis with about 1.5 L of fluid removed. he feels his breathing has improved compared to yesterday and is less short of breath but does still continue to require supplemental oxygen. No fevers overnight and he did get a decent nights sleep. Edema is marginally better today with some improvement noted in his arms and mildly on his abdomen. Still has significant lower extremity edema. Kidney function has remained stable. He also developed hematuria overnight as noted in the Ojeda catheter collection system. - Patient Data Vitals - most recent: Last Vital Signs Temp 36.1 C 11/02/16 07:11 Pulse 98 11/02/16 07:19 Resp 16 11/02/16 07:11 BP 119/90 11/02/16 07:11 Pulse Ox 94 L 11/02/16 07:11 Weight - most recent: 127.777 kg I&O - last 24 hours: Intake & Output 11/01/16 11/02/16 11/02/16 22:59 06:59 14:59 Intake Total 360 500 Output Total 850 275 Balance -850 85 500 Lab Results last 24 hrs: Laboratory Results - last 24 hr 10/31/16 11/02/16 11/02/16 Range/Units 04:10 08:20 08:20 WBC 12.6 H (4.5-11.0) K/uL RBC 3.79 L (4.30-5.90) M/uL Hgb 12.9 (12.0-15.0) g/dL Hct 38.0 L (40.0-54.0) % MCV 100 H (80-98) fL MCH 34 H (27-31) pg MCHC 34 (32-36) % Plt Count 52 L (150-400) K/uL Sodium 133 L (140-148) mmol/L Potassium 4.1 (3.6-5.2) mmol/L Chloride 101 (100-108) mmol/L Carbon Dioxide 32 (21-32) mmol/L Anion Gap 4.1 L (5.0-14.0) mmol/L BUN 25 H (7-18) mg/dL Creatinine 1.4 H (0.8-1.3) mg/dL Est Cr Clr Drug Dosing 56.54 mL/min Estimated GFR (MDRD) 51 L (>60) Glucose 136 H (74-106) mg/dL Calcium 7.7 L (8.5-10.1) mg/dL Hep B Core Total Ab Non reactive (NR) Hepatitis C Antibody Non reactive (NR) Edd Results last 24 hrs: Microbiology 11/01/16 16:57 MARVIN Preparation - Final Other - Bronchoaveolar 11/01/16 14:28 Gram Stain - Final Paracentesis Fluid 11/01/16 13:56 Gram Stain - Final Thoracic Fluid - Left 11/01/16 16:57 Gram Stain - Final Bronchial Alveolar Lavage - Mixed Med Orders - Current: Current Medications Acetaminophen (Tylenol) 650 mg PO Q4H PRN PRN Reason: Pain (Mild 1-3)/fever Last Admin: 10/31/16 00:08 Dose: 650 mg Albuterol (Ventolin Hfa) 0 gm INH Q4H PRN PRN Reason: sob Albuterol (Proventil Neb Soln) 2.5 mg NEB Q4H PRN PRN Reason: Shortness Of Breath/wheezing Last Admin: 10/31/16 18:53 Dose: 2.5 mg Albuterol/Ipratropium (Duoneb 3.0-0.5 Mg/3 Ml) 3 ml INH QIDRT COUNTS INCLUDE 234 BEDS AT THE [facility] Last Admin: 11/02/16 07:21 Dose: 3 ml Amoxicillin/Clavulanate Potassium (Augmentin 875 Mg/125 Mg) 1 tab PO BID COUNTS INCLUDE 234 BEDS AT THE [facility] Last Admin: 11/02/16 09:27 Dose: 1 tab Cholecalciferol (Vitamin D3) 1,000 units PO DAILY COUNTS INCLUDE 234 BEDS AT THE [facility] Last Admin: 11/02/16 09:28 Dose: 1,000 units Fluticasone Propionate (Flonase) 0 gm RUSSELL DAILY COUNTS INCLUDE 234 BEDS AT THE [facility] Last Admin: 11/02/16 09:28 Dose: 2 spray Folic Acid (Folic Acid) 1 mg PO DAILY COUNTS INCLUDE 234 BEDS AT THE [facility] Last Admin: 11/02/16 09:28 Dose: 1 mg Furosemide (Lasix) 80 mg PO BIDDIURETIC COUNTS INCLUDE 234 BEDS AT THE [facility] Guaifenesin (Mucinex) 600 mg PO BID COUNTS INCLUDE 234 BEDS AT THE [facility] Last Admin: 11/02/16 09:28 Dose: 600 mg Guaifenesin/Codeine Phosphate (Robitussin Ac) 10 ml PO Q4H PRN PRN Reason: Cough Last Admin: 11/01/16 22:00 Dose: 10 ml Levofloxacin (Levaquin) 250 mg PO Q24H COUNTS INCLUDE 234 BEDS AT THE [facility] Last Admin: 11/01/16 12:02 Dose: 250 mg Levofloxacin (Levaquin) 500 mg PO Q24H COUNTS INCLUDE 234 BEDS AT THE [facility] Last Admin: 11/01/16 12:03 Dose: 500 mg Multivitamins/Minerals (Thera M Plus) 1 tab PO DAILY COUNTS INCLUDE 234 BEDS AT THE [facility] Last Admin: 11/02/16 09:27 Dose: 1 tab Ondansetron HCl (Zofran Odt) 4 mg PO Q6H PRN PRN Reason: Nausea able to take PO Pantoprazole Sodium (Protonix) 40 mg PO ACBREAKFAST COUNTS INCLUDE 234 BEDS AT THE [facility] Last Admin: 11/02/16 09:27 Dose: 40 mg Prednisone (Prednisone) 40 mg PO DAILY COUNTS INCLUDE 234 BEDS AT THE [facility] Last Admin: 11/02/16 09:28 Dose: 40 mg Sodium Chloride (Saline Flush) 10 ml FLUSH ASDIRECTED PRN PRN Reason: Keep Vein Open Spironolactone (Aldactone) 50 mg PO BIDDIURETIC COUNTS INCLUDE 234 BEDS AT THE [facility] Thiamine HCl (Vitamin B-1) 100 mg PO DAILY COUNTS INCLUDE 234 BEDS AT THE [facility] Last Admin: 11/02/16 09:27 Dose: 100 mg Discontinued Medications Albuterol/Ipratropium (Duoneb 3.0-0.5 Mg/3 Ml) 3 ml NEB ONETIME ONE Stop: 10/30/16 15:58 Last Admin: 10/30/16 16:12 Dose: 3 ml Fentanyl (Sublimaze) Confirm Administered Dose 100 mcg .ROUTE .STK-MED ONE Stop: 11/01/16 10:45 Fluticasone Propionate (Flonase) 0 gm RUSSELL DAILY COUNTS INCLUDE 234 BEDS AT THE [facility] Furosemide (Lasix) 40 mg PO BIDDIURETIC COUNTS INCLUDE 234 BEDS AT THE [facility] Last Admin: 11/02/16 09:27 Dose: 40 mg Sodium Chloride (Normal Saline) 1,000 mls @ 125 mls/hr IV ASDIRECTED COUNTS INCLUDE 234 BEDS AT THE [facility] Stop: 10/31/16 02:08 Sodium Chloride (Normal Saline) 85 mls @ 3.5 mls/sec IV ASDIRECTED COUNTS INCLUDE 234 BEDS AT THE [facility] Last Admin: 10/31/16 08:02 Dose: 3.5 mls/sec Magnesium Sulfate 2 gm/ Premix 50 mls @ 25 mls/hr IV Q6H COUNTS INCLUDE 234 BEDS AT THE [facility] Stop: 10/31/16 14:00 Last Admin: 10/31/16 10:43 Dose: 25 mls/hr Magnesium Sulfate 2 gm/ Sodium (Chloride) 54 mls @ 27 mls/hr IV Q6H COUNTS INCLUDE 234 BEDS AT THE [facility] Stop: 11/01/16 06:59 Last Admin: 11/01/16 05:00 Dose: 27 mls/hr Iopamidol (Isovue-300 (61%)) 150 ml IV . DIRECTED PRN PRN Reason: RADIOLOGY EXAM Stop: 11/01/16 07:12 Last Admin: 10/31/16 08:02 Dose: 150 ml Lidocaine (Lidocaine 4% Top Soln) Confirm Administered Dose 4 ml .ROUTE .STK- MED ONE Stop: 11/01/16 14:32 Lidocaine HCl (Xylocaine 2% Jelly) 10 ml MUCMEM ONETIME ONE Stop: 10/30/16 23:34 Last Admin: 10/30/16 23:49 Dose: 10 ml Lidocaine HCl (Xylocaine 4% Top Soln) Confirm Administered Dose 50 ml .ROUTE .STK-MED ONE Stop: 11/01/16 08:36 Last Admin: 11/01/16 16:35 Dose: 50 ml Methylprednisolone Sodium Succinate (Solu-Medrol) 62.5 mg IVPUSH Q8H COUNTS INCLUDE 234 BEDS AT THE [facility] Stop: 10/31/16 02:01 Last Admin: 10/31/16 02:12 Dose: 62.5 mg Midazolam HCl (Versed 1 Mg/Ml) Confirm Administered Dose 2 mg .ROUTE .STK-MED ONE Stop: 11/01/16 10:45 Propofol (Diprivan 20 Ml) Confirm Administered Dose 200 mg .ROUTE .STK-MED ONE Stop: 11/01/16 10:45 Sodium Chloride (Saline Flush) 10 ml FLUSH ONETIME ONE Stop: 10/31/16 07:12 Last Admin: 10/31/16 08:01 Dose: 10 ml Spironolactone (Aldactone) 25 mg PO BIDDIURETIC COUNTS INCLUDE 234 BEDS AT THE [facility] Last Admin: 11/02/16 09:27 Dose: 25 mg - Exam Quality Assessment: supplemental oxygen, urine catheter General: alert, oriented, cooperative, no acute distress Neck: supple Lungs: Clear to auscultation, Normal respiratory effort Cardiovascular: regular rate, regular rhythm Abdomen: soft, distension, other (pitting edema of right abdominal wall). No: tenderness Extremities: edema (massive pitting edema from feet to waist of both legs) Skin: warm, dry Psy/Mental Status: alert, normal affect - Problem List & Annotations (1) Right upper lobe pneumonia SNOMED Code(s): 825934286 Code(s): J18.1 - LOBAR PNEUMONIA, UNSPECIFIED ORGANISM Status: Acute Current Visit: Yes Qualifiers: Pneumonia type: due to unspecified organism Qualified Code(s): J18.1 - Lobar pneumonia, unspecified organism (2) Acute exacerbation of chronic obstructive airways disease SNOMED Code(s): 011461713 Code(s): J44.1 - CHRONIC OBSTRUCTIVE PULMONARY DISEASE W (ACUTE) EXACERBATION Status: Acute Current Visit: Yes (3) Cirrhosis of liver SNOMED Code(s): 95958049 Code(s): K74.60 - UNSPECIFIED CIRRHOSIS OF LIVER Status: Acute Current Visit: Yes Qualifiers: Hepatic cirrhosis type: unspecified hepatic cirrhosis Ascites presence: with ascites Qualified Code(s): K74.60 - Unspecified cirrhosis of liver (4) Anasarca SNOMED Code(s): 753815889, 137759297 Code(s): R60.1 - GENERALIZED EDEMA Status: Acute Current Visit: Yes (5) Acute kidney injury SNOMED Code(s): 26415573 Code(s): N17.9 - ACUTE KIDNEY FAILURE, UNSPECIFIED Status: Acute Current Visit: Yes (6) Hyperbilirubinemia SNOMED Code(s): 09992504 Code(s): E80.6 - OTHER DISORDERS OF BILIRUBIN METABOLISM Status: Acute Current Visit: Yes - Problem List Review Problem List Initiated/Reviewed/Updated: Yes - My Orders Last 24 Hours: My Active Orders 11/01/16 14:29 VTE Mechanical Contraindications [AST] Click to Edit 11/01/16 23:30 Insert Ojeda Catheter [Insert Urinary Catheter] [OM.PC] Q24H 11/01/16 Dinner Regular Diet [DIET] 11/02/16 07:00 Consult to Dietary [Consult to Chip Washer] [CONS] Routine 11/02/16 08:07 Chest 2V [CR] Routine 11/02/16 14:00 Furosemide [Lasix] 80 mg PO BIDDIURETIC Spironolactone [Aldactone] 50 mg PO BIDDIURETIC 11/03/16 05:00 CBC W/O DIFF,HEMOGRAM [HEME] Timed (1) COMPREHENSIVE METABOLIC PN,CMP [CHEM] Timed MAGNESIUM [CHEM] Timed - Plan Plan:: Assessment and plan - Right upper lobe pneumonia with acute exacerbation of asthma/COPD - CT scan revealed pneumonia that was not appreciated on chest x-ray. bronchoscopy unremarkable. Cultures negative so far. Respiratory status improved following thoracentesis. -Augmentin plus levofloxacin -Continue prednisone, start to taper -Scheduled and as needed nebulizers -Supplement oxygen if needed Large left pleural effusion - I suspect this is a complication of his advanced liver disease. respiratory status improved following thoracentesis. No organisms seen on Gram stain. Cultures are pending. echocardiogram did not show evidence for congestive heart failure. -followup cultures Hematuria - developed overnight. No obvious evidence for trauma to lead to this development but was not present on admission or after Ojeda catheter placed. -Monitor Cirrhosis - alcoholic cirrhosis is suspected though he has an elevated albumin: protein gradient at could suggest paraproteinemia. CT scan documented significant cirrhosis. Workup largely pending at this time, hepatitis serologies negative. status post 2 L paracentesis yesterday. -Continue diuretics, try to increase today if able -Saline lock IV -Workup for paraproteinemia pending Anasarca - probably related to liver disease. Using mechanical methods including ULISES wraps of the legs. Echocardiogram completed and did not show evidence for congestive heart failure. -ULISES wraps to both legs from foot to thigh -increase diuretics today Acute kidney injury - creatinine nearly doubled baseline creatinine of 0.7 but stable since admission. - Saline lock IV -Continue diuretics -Repeat labs in the morning Maintenance issues - - DVT prophylaxis - mechanical with thrombocytopenia - GI prophylaxis - proton pump inhibitor - Nutrition - low sodium diet - Ojeda catheter - placed 10/30 for strict intake and output monitoring with some respiratory compromise, will remain in place with new hematuria. We'll reassess tomorrow but hopefully can remove. Disposition - anticipate discharge home after the hospital stay Syed Robbins M.D.
--- NOTE | 2016-11-02 10:59 | CR ---
Chest 2V INDICATION: f/u thoracentesis FINDINGS: Comparison 10/30/2016. Interval decrease in size of a moderate left pleural effusion consis tent with thoracentesis. No evidence for pneumothorax.
[2016-11-02] MEDS: Levofloxacin 250 MG Tab PO SCH (11:59)
[2016-11-02] MEDS: Levofloxacin 500 MG Tab PO SCH (11:59)
[2016-11-02] MEDS: Furosemide 80 MG Tab PO SCH (14:07)
[2016-11-03] MEDS ORDERED: LORazepam 2 MG/ML MDV IVPUSH PRN (02:08)
[2016-11-03] MEDS: Albuterol/Ipratropium 3.0-0.5 MG/3 ML Neb Soln INH SCH ×4 (07:26→21:53)
[2016-11-03] MEDS: Folic Acid 1 MG Tab PO SCH (08:33)
[2016-11-03] MEDS: Multivitamins with Iron/Calcium/Folic Acid/Minerals Tab PO SCH (08:33)
[2016-11-03] MEDS: guaiFENesin 600 MG Tab.ER PO SCH ×2 (08:33→21:52)
[2016-11-03] MEDS: Furosemide 80 MG Tab PO SCH ×2 (08:33→14:01)
[2016-11-03] MEDS: Spironolactone 25 MG Tab PO SCH ×2 (08:34→14:01)
[2016-11-03] MEDS: Thiamine 100 MG Tab PO SCH (08:34)
[2016-11-03] MEDS: Amoxicillin/Clavulanate K 875-125 MG Tab PO SCH (08:34)
[2016-11-03] MEDS: Pantoprazole 40 MG Tab.CR PO SCH (08:34)
[2016-11-03] MEDS: Fluticasone Propionate Nasal Spray 16 GM Bottle NAS SCH (08:35)
[2016-11-03] MEDS: Cholecalciferol (Vitamin D3) 1,000 Unit Tab PO SCH (08:35)
[2016-11-03] MEDS: predniSONE 20 MG Tab PO SCH (08:35)
[2016-11-03] MEDS: Levofloxacin 500 MG Tab PO SCH (11:11)
[2016-11-03] MEDS: Levofloxacin 250 MG Tab PO SCH (11:11)
--- NOTE | 2016-11-03 11:41 | PCM.PN ---
- General Info Date of Service: 11/03/16 Functional Status: Reports: pain controlled, tolerating diet, ambulating - Review of Systems General: Reports: weakness Neurological: Reports: confusion, tremors Systems Review Comment:: some difficulty with confusion overnight though it has been mild so far. Patient reports that he feels fine this morning. He does not endorse any abdominal pain and does not feel short of breath. Lower extremity edema and abdominal wall edema is stable. Tolerating diuretics so far. Bronchoalveolar lavage culture is growing a coag negative staph and rare yeast and he is requiring minimal supplemental oxygen at this time. He has been ambulating with a walker. - Patient Data Vitals - most recent: Last Vital Signs Temp 36.3 C 11/03/16 10:38 Pulse 100 11/03/16 10:57 Resp 18 11/03/16 10:38 BP 143/79 H 11/03/16 10:38 Pulse Ox 93 L 11/03/16 10:38 Weight - most recent: 127.142 kg I&O - last 24 hours: Intake & Output 11/02/16 11/03/16 11/03/16 22:59 06:59 14:59 Intake Total 200 600 Output Total 350 550 Balance -150 50 Lab Results last 24 hrs: Laboratory Results - last 24 hr 10/31/16 10/31/16 10/31/16 Range/Units 04:10 04:10 12:53 WBC (4.5-11.0) K/uL RBC (4.30-5.90) M/uL Hgb (12.0-15.0) g/dL Hct (40.0-54.0) % MCV (80-98) fL MCH (27-31) pg MCHC (32-36) % Plt Count (150-400) K/uL Sodium (140-148) mmol/L Potassium (3.6-5.2) mmol/L Chloride (100-108) mmol/L Carbon Dioxide (21-32) mmol/L Anion Gap (5.0-14.0) mmol/L BUN (7-18) mg/dL Creatinine (0.8-1.3) mg/dL Est Cr Clr Drug Dosing mL/min Estimated GFR (MDRD) (>60) Glucose (74-106) mg/dL Calcium (8.5-10.1) mg/dL Magnesium (1.8-2.4) mg/dL Total Bilirubin (0.2-1.0) mg/dL AST (15-37) U/L ALT (12-78) U/L Alkaline Phosphatase (46-116) U/L Total Protein (6.4-8.2) g/dL Total Protein (PEP) 5.7 L (6.1-7.8) g/dL Albumin (3.4-5.0) g/dL Albumin % (PEP) 37.1 L (45.0-80.0) % Albumin (PEP) 2.1 L (3.3-4.8) g/dL Globulin (2.3-3.5) g/dL Albumin/Globulin Ratio (1.2-2.2) Xcjzl-3-Bnwtlklqy 0.2 (0.1-0.4) g/dL Mnbjl-8-Psktvldic (%) 2.7 (1.0-6.0) % Yiykf-2-Injiqjcru 0.4 L (0.5-1.1) g/dL Pyhgp-6-Eqnrmpqlg (%) 6.6 (6.0-17.0) % Tuuf-3-Tikhtavs 0.5 (0.4-0.8) g/dL Dwof-4-Cayustin (%) 9.1 (5.0-13.0) % Thzz-4-Bghhsmvc 0.6 (0.2-0.6) g/dL Hycn-3-Ejtxgxkk (%) 9.8 H (2.0-8.5) % Gamma Globulins 2.0 H (0.6-1.5) g/dL Gamma Globulins (%) 34.8 H (7.5-24.0) % ALYSA & SPEP Interp See below Serum ALYSA Interpret See below Urine IEP Interpret See below Hep Bs Antigen Non reactive (NR) 11/03/16 11/03/16 Range/Units 05:00 05:00 WBC 12.8 H (4.5-11.0) K/uL RBC 3.78 L (4.30-5.90) M/uL Hgb 12.8 (12.0-15.0) g/dL Hct 37.5 L (40.0-54.0) % MCV 99 H (80-98) fL MCH 34 H (27-31) pg MCHC 34 (32-36) % Plt Count 37 L (150-400) K/uL Sodium 135 L (140-148) mmol/L Potassium 4.3 (3.6-5.2) mmol/L Chloride 101 (100-108) mmol/L Carbon Dioxide 29 (21-32) mmol/L Anion Gap 9.3 (5.0-14.0) mmol/L BUN 28 H (7-18) mg/dL Creatinine 1.4 H (0.8-1.3) mg/dL Est Cr Clr Drug Dosing 56.54 mL/min Estimated GFR (MDRD) 51 L (>60) Glucose 119 H (74-106) mg/dL Calcium 7.4 L (8.5-10.1) mg/dL Magnesium 1.8 (1.8-2.4) mg/dL Total Bilirubin 2.5 H (0.2-1.0) mg/dL AST 46 H (15-37) U/L ALT 46 (12-78) U/L Alkaline Phosphatase 135 H (46-116) U/L Total Protein 5.4 L (6.4-8.2) g/dL Total Protein (PEP) (6.1-7.8) g/dL Albumin 1.6 L (3.4-5.0) g/dL Albumin % (PEP) (45.0-80.0) % Albumin (PEP) (3.3-4.8) g/dL Globulin 3.8 H (2.3-3.5) g/dL Albumin/Globulin Ratio 0.4 L (1.2-2.2) Rbvvu-2-Hevjrggyk (0.1-0.4) g/dL Ebluj-8-Pymjkwojj (%) (1.0-6.0) % Rwzig-2-Vwnzokclj (0.5-1.1) g/dL Ulzur-3-Fvaovcium (%) (6.0-17.0) % Etdp-6-Qaxmvmlu (0.4-0.8) g/dL Akia-0-Jeaqnjvz (%) (5.0-13.0) % Sxcn-2-Olqxicfg (0.2-0.6) g/dL Xmra-2-Progaydv (%) (2.0-8.5) % Gamma Globulins (0.6-1.5) g/dL Gamma Globulins (%) (7.5-24.0) % ALYSA & SPEP Interp Serum ALYSA Interpret Urine IEP Interpret Hep Bs Antigen (NR) Edd Results last 24 hrs: Microbiology 11/01/16 16:57 Gram Stain - Final Bronchial Alveolar Lavage - Mixed Respiratory Culture - Preliminary 11/01/16 14:28 Anaerobic Culture - Preliminary Paracentesis Fluid NO GROWTH AFTER 1 DAY 11/01/16 13:56 Anaerobic Culture - Preliminary Thoracic Fluid - Left NO GROWTH AFTER 1 DAY 11/01/16 14:28 Gram Stain - Final Paracentesis Fluid Wound Culture - Preliminary NO GROWTH AFTER 1 DAY 11/01/16 13:56 Gram Stain - Final Thoracic Fluid - Left Wound Culture - Preliminary NO GROWTH AFTER 1 DAY Med Orders - Current: Current Medications Acetaminophen (Tylenol) 650 mg PO Q4H PRN PRN Reason: Pain (Mild 1-3)/fever Last Admin: 10/31/16 00:08 Dose: 650 mg Albuterol (Ventolin Hfa) 0 gm INH Q4H PRN PRN Reason: sob Albuterol (Proventil Neb Soln) 2.5 mg NEB Q4H PRN PRN Reason: Shortness Of Breath/wheezing Last Admin: 10/31/16 18:53 Dose: 2.5 mg Albuterol/Ipratropium (Duoneb 3.0-0.5 Mg/3 Ml) 3 ml INH QIDRT [facility] Last Admin: 11/03/16 10:56 Dose: 3 ml Cholecalciferol (Vitamin D3) 1,000 units PO DAILY [facility] Last Admin: 11/03/16 08:35 Dose: 1,000 units Fluticasone Propionate (Flonase) 0 gm RUSSELL DAILY [facility] Last Admin: 11/03/16 08:35 Dose: 2 spray Folic Acid (Folic Acid) 1 mg PO DAILY [facility] Last Admin: 11/03/16 08:33 Dose: 1 mg Furosemide (Lasix) 80 mg PO BIDDIURETIC [facility] Last Admin: 11/03/16 08:33 Dose: 80 mg Guaifenesin (Mucinex) 600 mg PO BID [facility] Last Admin: 11/03/16 08:33 Dose: 600 mg Guaifenesin/Codeine Phosphate (Robitussin Ac) 10 ml PO Q4H PRN PRN Reason: Cough Last Admin: 11/01/16 22:00 Dose: 10 ml Ceftriaxone Sodium 2 gm/ (Sodium Chloride) 50 mls @ 100 mls/hr IV Q24H [facility] Levofloxacin (Levaquin) 250 mg PO Q24H [facility] Last Admin: 11/03/16 11:11 Dose: 250 mg Levofloxacin (Levaquin) 500 mg PO Q24H [facility] Last Admin: 11/03/16 11:11 Dose: 500 mg Lorazepam (Ativan) 0.5 - 1 mg IVPUSH Q2H PRN PRN Reason: Anxiety Last Admin: 11/03/16 02:23 Dose: 1 mg Multivitamins/Minerals (Thera M Plus) 1 tab PO DAILY [facility] Last Admin: 11/03/16 08:33 Dose: 1 tab Ondansetron HCl (Zofran Odt) 4 mg PO Q6H PRN PRN Reason: Nausea able to take PO Pantoprazole Sodium (Protonix) 40 mg PO ACBREAKFAST [facility] Last Admin: 11/03/16 08:34 Dose: 40 mg Prednisone (Prednisone) 20 mg PO DAILY [facility] Last Admin: 11/03/16 08:35 Dose: 20 mg Sodium Chloride (Saline Flush) 10 ml FLUSH ASDIRECTED PRN PRN Reason: Keep Vein Open Spironolactone (Aldactone) 50 mg PO BIDDIURETIC [facility] Last Admin: 11/03/16 08:34 Dose: 50 mg Thiamine HCl (Vitamin B-1) 100 mg PO DAILY [facility] Last Admin: 11/03/16 08:34 Dose: 100 mg Discontinued Medications Albuterol/Ipratropium (Duoneb 3.0-0.5 Mg/3 Ml) 3 ml NEB ONETIME ONE Stop: 10/30/16 15:58 Last Admin: 10/30/16 16:12 Dose: 3 ml Amoxicillin/Clavulanate Potassium (Augmentin 875 Mg/125 Mg) 1 tab PO BID [facility] Last Admin: 11/03/16 08:34 Dose: 1 tab Fentanyl (Sublimaze) Confirm Administered Dose 100 mcg .ROUTE .STK-MED ONE Stop: 11/01/16 10:45 Fluticasone Propionate (Flonase) 0 gm RUSSELL DAILY [facility] Furosemide (Lasix) 40 mg PO BIDDIURETIC [facility] Last Admin: 11/02/16 09:27 Dose: 40 mg Sodium Chloride (Normal Saline) 1,000 mls @ 125 mls/hr IV ASDIRECTED [facility] Stop: 10/31/16 02:08 Sodium Chloride (Normal Saline) 85 mls @ 3.5 mls/sec IV ASDIRECTED [facility] Last Admin: 10/31/16 08:02 Dose: 3.5 mls/sec Magnesium Sulfate 2 gm/ Premix 50 mls @ 25 mls/hr IV Q6H [facility] Stop: 10/31/16 14:00 Last Admin: 10/31/16 10:43 Dose: 25 mls/hr Magnesium Sulfate 2 gm/ Sodium (Chloride) 54 mls @ 27 mls/hr IV Q6H [facility] Stop: 11/01/16 06:59 Last Admin: 11/01/16 05:00 Dose: 27 mls/hr Iopamidol (Isovue-300 (61%)) 150 ml IV . DIRECTED PRN PRN Reason: RADIOLOGY EXAM Stop: 11/01/16 07:12 Last Admin: 10/31/16 08:02 Dose: 150 ml Lidocaine (Lidocaine 4% Top Soln) Confirm Administered Dose 4 ml .ROUTE .STK- MED ONE Stop: 11/01/16 14:32 Lidocaine HCl (Xylocaine 2% Jelly) 10 ml MUCMEM ONETIME ONE Stop: 10/30/16 23:34 Last Admin: 10/30/16 23:49 Dose: 10 ml Lidocaine HCl (Xylocaine 4% Top Soln) Confirm Administered Dose 50 ml .ROUTE .STK-MED ONE Stop: 11/01/16 08:36 Last Admin: 11/01/16 16:35 Dose: 50 ml Methylprednisolone Sodium Succinate (Solu-Medrol) 62.5 mg IVPUSH Q8H [facility] Stop: 10/31/16 02:01 Last Admin: 10/31/16 02:12 Dose: 62.5 mg Midazolam HCl (Versed 1 Mg/Ml) Confirm Administered Dose 2 mg .ROUTE .STK-MED ONE Stop: 11/01/16 10:45 Prednisone (Prednisone) 40 mg PO DAILY [facility] Last Admin: 11/02/16 09:28 Dose: 40 mg Propofol (Diprivan 20 Ml) Confirm Administered Dose 200 mg .ROUTE .STK-MED ONE Stop: 11/01/16 10:45 Sodium Chloride (Saline Flush) 10 ml FLUSH ONETIME ONE Stop: 10/31/16 07:12 Last Admin: 10/31/16 08:01 Dose: 10 ml Spironolactone (Aldactone) 25 mg PO BIDDIURETIC [facility] Last Admin: 11/02/16 09:27 Dose: 25 mg - Exam Quality Assessment: supplemental oxygen General: alert, cooperative, no acute distress HEENT: Pupils equal, Pupils reactive, Scleral icterus Neck: supple Lungs: Normal respiratory effort, Decreased breath sounds (left lung base), Rales (few at bases L>R) Cardiovascular: regular rate, regular rhythm, murmurs Abdomen: soft, distension. No: tenderness Extremities: edema (massive pitting edema extending from the feet to the lower abdomen ) Skin: warm, dry Psy/Mental Status: alert. No: agitated - Problem List & Annotations (1) Right upper lobe pneumonia SNOMED Code(s): 371401569 Code(s): J18.1 - LOBAR PNEUMONIA, UNSPECIFIED ORGANISM Status: Acute Current Visit: Yes Qualifiers: Pneumonia type: due to unspecified organism Qualified Code(s): J18.1 - Lobar pneumonia, unspecified organism (2) Acute exacerbation of chronic obstructive airways disease SNOMED Code(s): 259894079 Code(s): J44.1 - CHRONIC OBSTRUCTIVE PULMONARY DISEASE W (ACUTE) EXACERBATION Status: Acute Current Visit: Yes (3) Cirrhosis of liver SNOMED Code(s): 85979332 Code(s): K74.60 - UNSPECIFIED CIRRHOSIS OF LIVER Status: Acute Current Visit: Yes Qualifiers: Hepatic cirrhosis type: unspecified hepatic cirrhosis Ascites presence: with ascites Qualified Code(s): K74.60 - Unspecified cirrhosis of liver (4) Anasarca SNOMED Code(s): 066049561, 406063228 Code(s): R60.1 - GENERALIZED EDEMA Status: Acute Current Visit: Yes (5) Acute kidney injury SNOMED Code(s): 13909828 Code(s): N17.9 - ACUTE KIDNEY FAILURE, UNSPECIFIED Status: Acute Current Visit: Yes (6) Hyperbilirubinemia SNOMED Code(s): 41458164 Code(s): E80.6 - OTHER DISORDERS OF BILIRUBIN METABOLISM Status: Acute Current Visit: Yes - Problem List Review Problem List Initiated/Reviewed/Updated: Yes - My Orders Last 24 Hours: My Active Orders 11/02/16 14:00 Furosemide [Lasix] 80 mg PO BIDDIURETIC Spironolactone [Aldactone] 50 mg PO BIDDIURETIC 11/02/16 23:30 Insert Ojeda Catheter [Insert Urinary Catheter] [OM.PC] Q24H 11/03/16 02:08 LORazepam [Ativan] 0.5 - 1 mg IVPUSH Q2H PRN 11/03/16 09:00 predniSONE 20 mg PO DAILY 11/03/16 11:36 Head wo Cont [CT] Routine 11/03/16 12:00 cefTRIAXone [Rocephin] 2 gm Sodium Chloride 0.9% [Normal Saline] 50 ml IV Q24H 11/04/16 05:00 AMMONIA VENOUS [CHEM] Timed BASIC METABOLIC PANEL,BMP [CHEM] Timed CBC W/O DIFF,HEMOGRAM [HEME] Timed (1) MAGNESIUM [CHEM] Timed - Plan Plan:: Assessment and plan - Right upper lobe pneumonia with acute exacerbation of asthma/COPD - CT scan revealed pneumonia that was not appreciated on chest x-ray. bronchoscopy unremarkable. Cultures growing coag-negative staph and rare yeast. -continue levofloxacin, and ceftriaxone -Continue prednisone with taper -Scheduled and as needed nebulizers -Supplement oxygen if needed Delirium - no focal deficits on examination but patient is not as clear as he was yesterday. CIWA score was 8 last night and he did receive some lorazepam. He does not obviously appear to be in alcohol withdrawal. Potentially a suboptimally treated infection could be contributing. No asterixis. -Ammonia level -Head CT -Antibiotic adjustments as above -Consider ICU transfer if condition worsens Large left pleural effusion - I suspect this is a complication of his advanced liver disease. respiratory status improved with arthrodesis, no evidence for heart failure on echocardiogram. -followup cultures Hematuria - developed 2 days ago and seems a little better today but persists. Not present when Ojeda catheter placed. Platelet levels are low and could be contributing. -Monitor Cirrhosis - alcoholic cirrhosis is suspected and workup for paraproteinemia has been unremarkable. -Continue diuretics -Saline lock IV Anasarca - probably related to liver disease. Using mechanical methods including ULISES wraps of the legs. Echocardiogram completed and did not show evidence for congestive heart failure. -ULISES wraps to both legs from foot to thigh -continue diuretics Acute kidney injury - baseline creatinine a few months ago was 0.7 but levels have been stable at 1.3-1.4 during hospital stay. he will need to be monitored carefully for hepatorenal syndrome. -Saline lock IV -Continue diuretics -Repeat labs in the morning Maintenance issues - - DVT prophylaxis - mechanical with thrombocytopenia - GI prophylaxis - proton pump inhibitor - Nutrition - low sodium diet - Ojeda catheter - placed 10/30 for strict intake and output monitoring. still closely monitoring intake and output, hopefully this can be removed in the near future. Disposition - anticipate discharge home after the hospital stay Syed Robbins M.D.
[2016-11-03] MEDS ORDERED: cefTRIAXone 2 GM in Sodium Chloride 0.9% 50 ML IV SCH (12:00)
[2016-11-04] MEDS: Spironolactone 25 MG Tab PO SCH ×2 (07:19→13:35)
[2016-11-04] MEDS: Pantoprazole 40 MG Tab.CR PO SCH (07:19)
[2016-11-04] MEDS: Furosemide 80 MG Tab PO SCH (07:19)
[2016-11-04] MEDS: Albuterol/Ipratropium 3.0-0.5 MG/3 ML Neb Soln INH SCH ×4 (07:37→21:04)
[2016-11-04] MEDS: Fluticasone Propionate Nasal Spray 16 GM Bottle NAS SCH (09:58)
[2016-11-04] MEDS: Doxycycline 100 MG in Sodium Chloride 0.9% 100 ML IV SCH ×2 (09:58→21:05)
[2016-11-04] MEDS: predniSONE 20 MG Tab PO SCH (09:59)
[2016-11-04] MEDS: Folic Acid 1 MG Tab PO SCH (09:59)
[2016-11-04] MEDS: Thiamine 100 MG Tab PO SCH (09:59)
[2016-11-04] MEDS: guaiFENesin 600 MG Tab.ER PO SCH ×2 (09:59→21:04)
[2016-11-04] MEDS: Multivitamins with Iron/Calcium/Folic Acid/Minerals Tab PO SCH (10:00)
[2016-11-04] MEDS: Cholecalciferol (Vitamin D3) 1,000 Unit Tab PO SCH (10:00)
[2016-11-04] MEDS: Levofloxacin 500 MG Tab PO SCH (11:30)
--- NOTE | 2016-11-04 11:33 | PCM.PN ---
- General Info Date of Service: 11/04/16 Functional Status: Reports: tolerating diet, ambulating - Review of Systems General: Reports: weakness Pulmonary: Denies: shortness of breath Gastrointestinal: Denies: Abdominal pain Neurological: Reports: confusion Systems Review Comment:: no acute events overnight. Still a little bit confused today but seems to be doing better. Answers questions more appropriately and is sharper today. He says that he feels fine. He doesn't feel short of breath. He isn't having any abdominal pain. Still has impressive pitting edema of both lower legs, thighs and abdomen. Almost his entire body is weeping fluid including back, abdomen and legs. He is no longer requiring supplemental oxygen during the day. Bronchoscopy culture growing staph epidermidis. - Patient Data Vitals - most recent: Last Vital Signs Temp 36.2 C 11/04/16 11:14 Pulse 96 11/04/16 11:14 Resp 18 11/04/16 11:14 BP 124/78 11/04/16 11:14 Pulse Ox 97 11/04/16 11:14 Weight - most recent: 127.142 kg I&O - last 24 hours: Intake & Output 11/03/16 11/04/16 11/04/16 22:59 06:59 14:59 Intake Total 580 Output Total 425 400 Balance -425 -400 580 Lab Results last 24 hrs: Laboratory Results - last 24 hr 11/03/16 11/04/16 11/04/16 Range/Units 13:02 05:45 05:45 WBC 12.2 H (4.5-11.0) K/uL RBC 3.75 L (4.30-5.90) M/uL Hgb 12.6 (12.0-15.0) g/dL Hct 37.3 L (40.0-54.0) % MCV 100 H (80-98) fL MCH 34 H (27-31) pg MCHC 34 (32-36) % Plt Count 47 L (150-400) K/uL Sodium 136 L (140-148) mmol/L Potassium 4.4 (3.6-5.2) mmol/L Chloride 99 L (100-108) mmol/L Carbon Dioxide 31 (21-32) mmol/L Anion Gap 10.4 (5.0-14.0) mmol/L BUN 31 H (7-18) mg/dL Creatinine 1.5 H (0.8-1.3) mg/dL Est Cr Clr Drug Dosing 52.77 mL/min Estimated GFR (MDRD) 47 L (>60) Glucose 134 H (74-106) mg/dL Calcium 7.6 L (8.5-10.1) mg/dL Magnesium 1.8 (1.8-2.4) mg/dL Ammonia 16 (11-32) mmol/L 11/04/16 Range/Units 05:45 WBC (4.5-11.0) K/uL RBC (4.30-5.90) M/uL Hgb (12.0-15.0) g/dL Hct (40.0-54.0) % MCV (80-98) fL MCH (27-31) pg MCHC (32-36) % Plt Count (150-400) K/uL Sodium (140-148) mmol/L Potassium (3.6-5.2) mmol/L Chloride (100-108) mmol/L Carbon Dioxide (21-32) mmol/L Anion Gap (5.0-14.0) mmol/L BUN (7-18) mg/dL Creatinine (0.8-1.3) mg/dL Est Cr Clr Drug Dosing mL/min Estimated GFR (MDRD) (>60) Glucose (74-106) mg/dL Calcium (8.5-10.1) mg/dL Magnesium (1.8-2.4) mg/dL Ammonia 12 (11-32) mmol/L Edd Results last 24 hrs: Microbiology 11/01/16 13:56 Anaerobic Culture - Preliminary Thoracic Fluid - Left NO GROWTH AFTER 2 DAYS 11/01/16 14:28 Anaerobic Culture - Preliminary Paracentesis Fluid NO GROWTH AFTER 2 DAYS 11/01/16 14:28 Gram Stain - Final Paracentesis Fluid Wound Culture - Preliminary NO GROWTH AFTER 2 DAYS 11/01/16 13:56 Gram Stain - Final Thoracic Fluid - Left Wound Culture - Preliminary NO GROWTH AFTER 2 DAYS 11/01/16 16:57 Gram Stain - Final Bronchial Alveolar Lavage - Mixed Respiratory Culture - Final Staphylococcus Epidermidis YEAST Med Orders - Current: Current Medications Acetaminophen (Tylenol) 650 mg PO Q4H PRN PRN Reason: Pain (Mild 1-3)/fever Last Admin: 10/31/16 00:08 Dose: 650 mg Albuterol (Ventolin Hfa) 0 gm INH Q4H PRN PRN Reason: sob Albuterol (Proventil Neb Soln) 2.5 mg NEB Q4H PRN PRN Reason: Shortness Of Breath/wheezing Last Admin: 10/31/16 18:53 Dose: 2.5 mg Albuterol/Ipratropium (Duoneb 3.0-0.5 Mg/3 Ml) 3 ml INH QIDRT [facility] Last Admin: 11/04/16 11:06 Dose: 3 ml Cholecalciferol (Vitamin D3) 1,000 units PO DAILY [facility] Last Admin: 11/04/16 10:00 Dose: 1,000 units Fluticasone Propionate (Flonase) 0 gm RUSSELL DAILY [facility] Last Admin: 11/04/16 09:58 Dose: 2 spray Folic Acid (Folic Acid) 1 mg PO DAILY [facility] Last Admin: 11/04/16 09:59 Dose: 1 mg Furosemide (Lasix) 80 mg PO BIDDIURETIC [facility] Last Admin: 11/04/16 07:19 Dose: 80 mg Guaifenesin (Mucinex) 600 mg PO BID [facility] Last Admin: 11/04/16 09:59 Dose: 600 mg Guaifenesin/Codeine Phosphate (Robitussin Ac) 10 ml PO Q4H PRN PRN Reason: Cough Last Admin: 11/01/16 22:00 Dose: 10 ml Doxycycline Hyclate 100 mg/ (Sodium Chloride) 100 mls @ 100 mls/hr IV Q12H [facility] Last Admin: 11/04/16 09:58 Dose: 100 mls/hr Levofloxacin (Levaquin) 500 mg PO Q24H [facility] Last Admin: 11/04/16 11:30 Dose: 500 mg Lorazepam (Ativan) 0.5 - 1 mg IVPUSH Q2H PRN PRN Reason: Anxiety Last Admin: 11/03/16 02:23 Dose: 1 mg Multivitamins/Minerals (Thera M Plus) 1 tab PO DAILY [facility] Last Admin: 11/04/16 10:00 Dose: 1 tab Ondansetron HCl (Zofran Odt) 4 mg PO Q6H PRN PRN Reason: Nausea able to take PO Pantoprazole Sodium (Protonix) 40 mg PO ACBREAKFAST [facility] Last Admin: 11/04/16 07:19 Dose: 40 mg Prednisone (Prednisone) 20 mg PO DAILY [facility] Last Admin: 11/04/16 09:59 Dose: 20 mg Sodium Chloride (Saline Flush) 10 ml FLUSH ASDIRECTED PRN PRN Reason: Keep Vein Open Spironolactone (Aldactone) 50 mg PO BIDDIURETIC [facility] Last Admin: 11/04/16 07:19 Dose: 50 mg Thiamine HCl (Vitamin B-1) 100 mg PO DAILY [facility] Last Admin: 11/04/16 09:59 Dose: 100 mg Discontinued Medications Albuterol/Ipratropium (Duoneb 3.0-0.5 Mg/3 Ml) 3 ml NEB ONETIME ONE Stop: 10/30/16 15:58 Last Admin: 10/30/16 16:12 Dose: 3 ml Amoxicillin/Clavulanate Potassium (Augmentin 875 Mg/125 Mg) 1 tab PO BID [facility] Last Admin: 11/03/16 08:34 Dose: 1 tab Fentanyl (Sublimaze) Confirm Administered Dose 100 mcg .ROUTE .STK-MED ONE Stop: 11/01/16 10:45 Fluticasone Propionate (Flonase) 0 gm RUSSELL DAILY [facility] Furosemide (Lasix) 40 mg PO BIDDIURETIC [facility] Last Admin: 11/02/16 09:27 Dose: 40 mg Sodium Chloride (Normal Saline) 1,000 mls @ 125 mls/hr IV ASDIRECTED [facility] Stop: 10/31/16 02:08 Sodium Chloride (Normal Saline) 85 mls @ 3.5 mls/sec IV ASDIRECTED [facility] Last Admin: 10/31/16 08:02 Dose: 3.5 mls/sec Magnesium Sulfate 2 gm/ Premix 50 mls @ 25 mls/hr IV Q6H [facility] Stop: 10/31/16 14:00 Last Admin: 10/31/16 10:43 Dose: 25 mls/hr Magnesium Sulfate 2 gm/ Sodium (Chloride) 54 mls @ 27 mls/hr IV Q6H [facility] Stop: 11/01/16 06:59 Last Admin: 11/01/16 05:00 Dose: 27 mls/hr Ceftriaxone Sodium 2 gm/ (Sodium Chloride) 50 mls @ 100 mls/hr IV Q24H [facility] Last Admin: 11/03/16 11:57 Dose: 100 mls/hr Ceftriaxone Sodium 2 gm/ (Sodium Chloride) 50 mls @ 100 mls/hr IV Q24H [facility] Iopamidol (Isovue-300 (61%)) 150 ml IV . DIRECTED PRN PRN Reason: RADIOLOGY EXAM Stop: 11/01/16 07:12 Last Admin: 10/31/16 08:02 Dose: 150 ml Levofloxacin (Levaquin) 250 mg PO Q24H [facility] Last Admin: 11/03/16 11:11 Dose: 250 mg Lidocaine (Lidocaine 4% Top Soln) Confirm Administered Dose 4 ml .ROUTE .STK- MED ONE Stop: 11/01/16 14:32 Lidocaine HCl (Xylocaine 2% Jelly) 10 ml MUCMEM ONETIME ONE Stop: 10/30/16 23:34 Last Admin: 10/30/16 23:49 Dose: 10 ml Lidocaine HCl (Xylocaine 4% Top Soln) Confirm Administered Dose 50 ml .ROUTE .STK-MED ONE Stop: 11/01/16 08:36 Last Admin: 11/01/16 16:35 Dose: 50 ml Methylprednisolone Sodium Succinate (Solu-Medrol) 62.5 mg IVPUSH Q8H [facility] Stop: 10/31/16 02:01 Last Admin: 10/31/16 02:12 Dose: 62.5 mg Midazolam HCl (Versed 1 Mg/Ml) Confirm Administered Dose 2 mg .ROUTE .STK-MED ONE Stop: 11/01/16 10:45 Prednisone (Prednisone) 40 mg PO DAILY [facility] Last Admin: 11/02/16 09:28 Dose: 40 mg Propofol (Diprivan 20 Ml) Confirm Administered Dose 200 mg .ROUTE .STK-MED ONE Stop: 11/01/16 10:45 Sodium Chloride (Saline Flush) 10 ml FLUSH ONETIME ONE Stop: 10/31/16 07:12 Last Admin: 10/31/16 08:01 Dose: 10 ml Spironolactone (Aldactone) 25 mg PO BIDDIURETIC [facility] Last Admin: 11/02/16 09:27 Dose: 25 mg - Exam Quality Assessment: No: supplemental oxygen General: alert, oriented, cooperative, no acute distress Neck: supple Lungs: Normal respiratory effort, Decreased breath sounds (both bases), Rales ( rare left lung base) Cardiovascular: regular rate, regular rhythm, murmurs (the left lower sternal border) Abdomen: soft, distension, other (pitting edema on the right side of the abdomen ). No: tenderness Extremities: edema (significant pitting edema of both thighs. Less edema of the lower legs after ULISES wraps were left in place for 48 hours. Significant venous stasis changes of the lower legs) Skin: warm, dry Psy/Mental Status: alert, normal affect - Problem List & Annotations (1) Right upper lobe pneumonia SNOMED Code(s): 628205797 Code(s): J18.1 - LOBAR PNEUMONIA, UNSPECIFIED ORGANISM Status: Acute Current Visit: Yes Qualifiers: Pneumonia type: due to unspecified organism Qualified Code(s): J18.1 - Lobar pneumonia, unspecified organism (2) Acute exacerbation of chronic obstructive airways disease SNOMED Code(s): 560197789 Code(s): J44.1 - CHRONIC OBSTRUCTIVE PULMONARY DISEASE W (ACUTE) EXACERBATION Status: Acute Current Visit: Yes (3) Cirrhosis of liver SNOMED Code(s): 48827000 Code(s): K74.60 - UNSPECIFIED CIRRHOSIS OF LIVER Status: Acute Current Visit: Yes Qualifiers: Hepatic cirrhosis type: unspecified hepatic cirrhosis Ascites presence: with ascites Qualified Code(s): K74.60 - Unspecified cirrhosis of liver (4) Anasarca SNOMED Code(s): 378386040, 786877817 Code(s): R60.1 - GENERALIZED EDEMA Status: Acute Current Visit: Yes (5) Acute kidney injury SNOMED Code(s): 11113977 Code(s): N17.9 - ACUTE KIDNEY FAILURE, UNSPECIFIED Status: Acute Current Visit: Yes (6) Hyperbilirubinemia SNOMED Code(s): 05940487 Code(s): E80.6 - OTHER DISORDERS OF BILIRUBIN METABOLISM Status: Acute Current Visit: Yes - Problem List Review Problem List Initiated/Reviewed/Updated: Yes - My Orders Last 24 Hours: My Active Orders 11/03/16 11:36 Head wo Cont [CT] Routine 11/04/16 09:00 Doxycycline [Vibramycin] 100 mg Sodium Chloride 0.9% [Normal Saline] 100 ml IV Q12H 11/04/16 16:00 Furosemide [Lasix] 40 mg IVPUSH Q8H 11/05/16 05:00 CBC W/O DIFF,HEMOGRAM [HEME] Timed (1) COMPREHENSIVE METABOLIC PN,CMP [CHEM] Timed 11/05/16 07:00 DC Ojeda Catheter [Urinary Catheter Removal] [RC] Per Unit Routine - Plan Plan:: Assessment and plan - Right upper lobe pneumonia with acute exacerbation of asthma/COPD - CT scan revealed pneumonia that was not appreciated on chest x-ray. bronchoscopy unremarkable. Cultures growing staph epidermidis resistant to fluoroquinolones. -change antibiotics to doxycycline -Continue prednisone with taper (decreased to 20 mg on 11/03) -Scheduled and as needed nebulizers -Supplement oxygen if needed Delirium - no focal deficits on examination but patient is not as clear as he was yesterday. no evidence for alcohol withdrawal. Seems a little better today. Suspect that it was multifactorial. Ammonia level and head CT were normal. -monitor status -Antibiotic changes above Large left pleural effusion - I suspect this is a complication of his advanced liver disease. respiratory status improved with arthrodesis, no evidence for heart failure on echocardiogram. -followup cultures Hematuria - developed 3 days ago and seems to be slowly improving. Planning to remove the Ojeda catheter tomorrow morning. -Monitor Cirrhosis - alcoholic cirrhosis is suspected and workup for paraproteinemia has been unremarkable. Complicated by anasarca, coagulopathy and portal hypertension based on CT scan. he also has impressive thrombocytopenia which hopefully is starting to trend in the right direction. -Continue diuretics including IV furosemide and oral spironolactone -Saline lock IV Anasarca - probably related to liver disease. Using mechanical methods including ULISES wraps of the legs. Echocardiogram completed and did not show evidence for congestive heart failure. -ULISES wraps to both legs from foot to thigh -continue diuretics Acute kidney injury - baseline creatinine a few months ago was 0.7 but levels have been stable at 1.3-1.4 during hospital stay. he will need to be monitored carefully for hepatorenal syndrome. -Saline lock IV -Continue diuretics -Repeat labs in the morning Maintenance issues - - DVT prophylaxis - mechanical with thrombocytopenia - GI prophylaxis - proton pump inhibitor - Nutrition - low sodium diet - Ojeda catheter - placed 10/30 for strict intake and output monitoring. still closely monitoring intake and output, hopefully this can be removed in the near future. Disposition - anticipate discharge home after the hospital stay Syed Robbins M.D.
[2016-11-04] MEDS ORDERED: cefTRIAXone 2 GM in Sodium Chloride 0.9% 50 ML IV SCH (12:00)
[2016-11-04] MEDS: Furosemide 40 MG/4 ML VIAL IVPUSH SCH ×2 (15:39→23:53)
[2016-11-04] MEDS: Acetaminophen 325 MG Tab PO PRN (22:40)
[2016-11-05] MEDS: Albuterol/Ipratropium 3.0-0.5 MG/3 ML Neb Soln INH SCH ×4 (07:19→20:30)
[2016-11-05] MEDS: Spironolactone 25 MG Tab PO SCH ×2 (08:07→14:57)
[2016-11-05] MEDS: Pantoprazole 40 MG Tab.CR PO SCH (08:08)
[2016-11-05] MEDS: Fluticasone Propionate Nasal Spray 16 GM Bottle NAS SCH (08:08)
[2016-11-05] MEDS: guaiFENesin 600 MG Tab.ER PO SCH ×2 (08:09→20:31)
[2016-11-05] MEDS: Thiamine 100 MG Tab PO SCH (08:09)
[2016-11-05] MEDS: Multivitamins with Iron/Calcium/Folic Acid/Minerals Tab PO SCH (08:09)
[2016-11-05] MEDS: predniSONE 20 MG Tab PO SCH (08:09)
[2016-11-05] MEDS: Folic Acid 1 MG Tab PO SCH (08:09)
[2016-11-05] MEDS: Furosemide 40 MG/4 ML VIAL IVPUSH SCH ×2 (08:10→20:26)
[2016-11-05] MEDS: Cholecalciferol (Vitamin D3) 1,000 Unit Tab PO SCH (08:10)
[2016-11-05] MEDS: Doxycycline 100 MG in Sodium Chloride 0.9% 100 ML IV SCH ×2 (08:27→20:38)
[2016-11-05] MEDS ORDERED: Furosemide 40 MG/4 ML VIAL IVPUSH SCH (09:00)
[2016-11-05] MEDS: Levofloxacin 500 MG Tab PO SCH (11:35)
--- NOTE | 2016-11-05 13:07 | PCM.PN ---
- General Info Date of Service: 11/05/16 Functional Status: Reports: pain controlled, urinating - Review of Systems General: Reports: weakness, fatigue Pulmonary: Reports: no symptoms, shortness of breath, cough Cardiovascular: Reports: dyspnea on exertion, edema. Denies: chest pain, palpitations, orthopnea, PND Gastrointestinal: Reports: No symptoms Psychiatric: Reports: confusion Systems Review Comment:: This patient is a 66-year-old gentleman with hepatic cirrhosis and pneumonia. He is improved from his respiratory standpoint and infection but continues to have marked anasarca. Intake yesterday exceeded output, appetite seems to be improving. - Patient Data Vitals - most recent: Last Vital Signs Temp 97.3 F 11/05/16 10:40 Pulse 109 H 11/05/16 10:40 Resp 18 11/05/16 10:40 BP 131/100 H 11/05/16 10:40 Pulse Ox 96 11/05/16 10:40 Weight - most recent: 270 lb 3.2 oz I&O - last 24 hours: Intake & Output 11/04/16 11/05/16 11/05/16 22:59 06:59 14:59 Intake Total 600 2000 460 Output Total 550 650 Balance 50 1350 460 Lab Results last 24 hrs: Laboratory Results - last 24 hr 11/05/16 11/05/16 Range/Units 05:51 05:51 WBC 11.8 H (4.5-11.0) K/uL RBC 3.69 L (4.30-5.90) M/uL Hgb 12.3 (12.0-15.0) g/dL Hct 36.1 L (40.0-54.0) % MCV 98 (80-98) fL MCH 33 H (27-31) pg MCHC 34 (32-36) % Plt Count 37 L (150-400) K/uL Sodium 135 L (140-148) mmol/L Potassium 4.3 (3.6-5.2) mmol/L Chloride 100 (100-108) mmol/L Carbon Dioxide 31 (21-32) mmol/L Anion Gap 8.3 (5.0-14.0) mmol/L BUN 35 H (7-18) mg/dL Creatinine 1.6 H (0.8-1.3) mg/dL Est Cr Clr Drug Dosing 49.47 mL/min Estimated GFR (MDRD) 44 L (>60) Glucose 104 (74-106) mg/dL Calcium 7.6 L (8.5-10.1) mg/dL Total Bilirubin 1.9 H (0.2-1.0) mg/dL AST 45 H (15-37) U/L ALT 44 (12-78) U/L Alkaline Phosphatase 131 H (46-116) U/L Total Protein 5.0 L (6.4-8.2) g/dL Albumin 1.5 L (3.4-5.0) g/dL Globulin 3.5 (2.3-3.5) g/dL Albumin/Globulin Ratio 0.4 L (1.2-2.2) Edd Results last 24 hrs: Microbiology 11/01/16 16:57 Fungal Culture - Preliminary Bronchial Alveolar Lavage - Mixed YEAST 11/01/16 14:28 Fungal Culture - Preliminary Thoracic Fluid - Left NO FUNGAL GROWTH AT 1 WEEK 11/01/16 17:13 Fungal Culture - Preliminary Peritoneal Fluid NO FUNGAL GROWTH AT 1 WEEK 11/01/16 13:56 Anaerobic Culture - Final Thoracic Fluid - Left NO GROWTH AFTER 3 DAYS 11/01/16 14:28 Anaerobic Culture - Final Paracentesis Fluid NO GROWTH AFTER 3 DAYS 11/01/16 13:56 Gram Stain - Final Thoracic Fluid - Left Wound Culture - Final NO GROWTH AFTER 3 DAYS 11/01/16 14:28 Gram Stain - Final Paracentesis Fluid Wound Culture - Final NO GROWTH AFTER 3 DAYS 11/01/16 16:57 Specimen Source - Preliminary Bronchial Alveolar Lavage - Mixed Acid Fast Bacilli Smear - Preliminary Med Orders - Current: Current Medications Acetaminophen (Tylenol) 650 mg PO Q4H PRN PRN Reason: Pain (Mild 1-3)/fever Last Admin: 11/04/16 22:40 Dose: 650 mg Albuterol (Ventolin Hfa) 0 gm INH Q4H PRN PRN Reason: sob Albuterol (Proventil Neb Soln) 2.5 mg NEB Q4H PRN PRN Reason: Shortness Of Breath/wheezing Last Admin: 10/31/16 18:53 Dose: 2.5 mg Albuterol/Ipratropium (Duoneb 3.0-0.5 Mg/3 Ml) 3 ml INH QIDRT [facility] Last Admin: 02/20/17 10:46 Dose: 3 ml Cholecalciferol (Vitamin D3) 1,000 units PO DAILY [facility] Last Admin: 11/05/16 08:10 Dose: 1,000 units Fluticasone Propionate (Flonase) 0 gm RUSSELL DAILY [facility] Last Admin: 11/05/16 08:08 Dose: 2 spray Folic Acid (Folic Acid) 1 mg PO DAILY [facility] Last Admin: 11/05/16 08:09 Dose: 1 mg Furosemide (Lasix) 40 mg IVPUSH Q12H [facility] Guaifenesin (Mucinex) 600 mg PO BID [facility] Last Admin: 11/05/16 08:09 Dose: 600 mg Guaifenesin/Codeine Phosphate (Robitussin Ac) 10 ml PO Q4H PRN PRN Reason: Cough Last Admin: 11/01/16 22:00 Dose: 10 ml Doxycycline Hyclate 100 mg/ (Sodium Chloride) 100 mls @ 100 mls/hr IV Q12H [facility] Last Admin: 11/05/16 08:27 Dose: 100 mls/hr Lactulose (Chronulac) 10 gm PO BID [facility] Levofloxacin (Levaquin) 500 mg PO Q24H [facility] Last Admin: 11/05/16 11:35 Dose: 500 mg Lorazepam (Ativan) 0.5 - 1 mg IVPUSH Q2H PRN PRN Reason: Anxiety Last Admin: 11/03/16 02:23 Dose: 1 mg Multivitamins/Minerals (Thera M Plus) 1 tab PO DAILY [facility] Last Admin: 11/05/16 08:09 Dose: 1 tab Ondansetron HCl (Zofran Odt) 4 mg PO Q6H PRN PRN Reason: Nausea able to take PO Pantoprazole Sodium (Protonix) 40 mg PO ACBREAKFAST [facility] Last Admin: 11/05/16 08:08 Dose: 40 mg Prednisone (Prednisone) 20 mg PO DAILY [facility] Last Admin: 11/05/16 08:09 Dose: 20 mg Sodium Chloride (Saline Flush) 10 ml FLUSH ASDIRECTED PRN PRN Reason: Keep Vein Open Spironolactone (Aldactone) 50 mg PO BIDDIURETIC [facility] Last Admin: 11/05/16 08:07 Dose: 50 mg Thiamine HCl (Vitamin B-1) 100 mg PO DAILY [facility] Last Admin: 11/05/16 08:09 Dose: 100 mg Discontinued Medications Albuterol/Ipratropium (Duoneb 3.0-0.5 Mg/3 Ml) 3 ml NEB ONETIME ONE Stop: 10/30/16 15:58 Last Admin: 10/30/16 16:12 Dose: 3 ml Amoxicillin/Clavulanate Potassium (Augmentin 875 Mg/125 Mg) 1 tab PO BID [facility] Last Admin: 11/03/16 08:34 Dose: 1 tab Fentanyl (Sublimaze) Confirm Administered Dose 100 mcg .ROUTE .STK-MED ONE Stop: 11/01/16 10:45 Fluticasone Propionate (Flonase) 0 gm RUSSELL DAILY [facility] Furosemide (Lasix) 40 mg PO BIDDIURETIC [facility] Last Admin: 11/02/16 09:27 Dose: 40 mg Furosemide (Lasix) 80 mg PO BIDDIURETIC [facility] Last Admin: 11/04/16 07:19 Dose: 80 mg Furosemide (Lasix) 40 mg IVPUSH Q8H [facility] Last Admin: 11/05/16 08:10 Dose: 40 mg Furosemide (Lasix) 40 mg IVPUSH Q12H [facility] Sodium Chloride (Normal Saline) 1,000 mls @ 125 mls/hr IV ASDIRECTED [facility] Stop: 10/31/16 02:08 Sodium Chloride (Normal Saline) 85 mls @ 3.5 mls/sec IV ASDIRECTED [facility] Last Admin: 10/31/16 08:02 Dose: 3.5 mls/sec Magnesium Sulfate 2 gm/ Premix 50 mls @ 25 mls/hr IV Q6H [facility] Stop: 10/31/16 14:00 Last Admin: 10/31/16 10:43 Dose: 25 mls/hr Magnesium Sulfate 2 gm/ Sodium (Chloride) 54 mls @ 27 mls/hr IV Q6H [facility] Stop: 11/01/16 06:59 Last Admin: 11/01/16 05:00 Dose: 27 mls/hr Ceftriaxone Sodium 2 gm/ (Sodium Chloride) 50 mls @ 100 mls/hr IV Q24H [facility] Last Admin: 11/03/16 11:57 Dose: 100 mls/hr Ceftriaxone Sodium 2 gm/ (Sodium Chloride) 50 mls @ 100 mls/hr IV Q24H [facility] Iopamidol (Isovue-300 (61%)) 150 ml IV . DIRECTED PRN PRN Reason: RADIOLOGY EXAM Stop: 11/01/16 07:12 Last Admin: 10/31/16 08:02 Dose: 150 ml Levofloxacin (Levaquin) 250 mg PO Q24H [facility] Last Admin: 11/03/16 11:11 Dose: 250 mg Lidocaine (Lidocaine 4% Top Soln) Confirm Administered Dose 4 ml .ROUTE .STK- MED ONE Stop: 11/01/16 14:32 Lidocaine HCl (Xylocaine 2% Jelly) 10 ml MUCMEM ONETIME ONE Stop: 10/30/16 23:34 Last Admin: 10/30/16 23:49 Dose: 10 ml Lidocaine HCl (Xylocaine 4% Top Soln) Confirm Administered Dose 50 ml .ROUTE .STK-MED ONE Stop: 11/01/16 08:36 Last Admin: 11/01/16 16:35 Dose: 50 ml Methylprednisolone Sodium Succinate (Solu-Medrol) 62.5 mg IVPUSH Q8H [facility] Stop: 10/31/16 02:01 Last Admin: 10/31/16 02:12 Dose: 62.5 mg Midazolam HCl (Versed 1 Mg/Ml) Confirm Administered Dose 2 mg .ROUTE .STK-MED ONE Stop: 11/01/16 10:45 Prednisone (Prednisone) 40 mg PO DAILY [facility] Last Admin: 11/02/16 09:28 Dose: 40 mg Propofol (Diprivan 20 Ml) Confirm Administered Dose 200 mg .ROUTE .STK-MED ONE Stop: 11/01/16 10:45 Sodium Chloride (Saline Flush) 10 ml FLUSH ONETIME ONE Stop: 10/31/16 07:12 Last Admin: 10/31/16 08:01 Dose: 10 ml Spironolactone (Aldactone) 25 mg PO BIDDIURETIC [facility] Last Admin: 11/02/16 09:27 Dose: 25 mg - Exam Quality Assessment: DVT prophylaxis General: other (Confused) Lungs: Normal respiratory effort, Decreased breath sounds, Rhonchi. No: Crackles, Rales, Rub, Stridor, Wheezing Cardiovascular: regular rate, regular rhythm, no murmurs Abdomen: bowel sounds present, soft, no tenderness, no distension Extremities: edema Skin: warm, dry, intact - Problem List Review Problem List Initiated/Reviewed/Updated: Yes - My Orders Last 24 Hours: My Active Orders 11/05/16 14:00 Lactulose [Chronulac] 10 gm PO BID 11/05/16 20:00 Furosemide [Lasix] 40 mg IVPUSH Q12H 11/05/16 Breakfast 2 Gram Sodium Diet [DIET] Fluid Restriction [DIET] 11/06/16 05:00 CBC WITH AUTO DIFF [HEME] Timed COMPREHENSIVE METABOLIC PN,CMP [CHEM] Timed MAGNESIUM [CHEM] Timed - Plan Plan:: Assessment and plan - Right upper lobe pneumonia with acute exacerbation of asthma/COPD - CT scan revealed pneumonia that was not appreciated on chest x-ray. bronchoscopy unremarkable. Cultures growing staph epidermidis resistant to fluoroquinolones. Culture also growing yeast which is likely a contaminant -Continue doxycycline -Continue prednisone with taper (decreased to 20 mg on 11/03) -Scheduled and as needed nebulizers -Supplement oxygen if needed Delirium - no focal deficits on examination but patient is not as clear as he was yesterday. no evidence for alcohol withdrawal. Seems a little better today. Suspect that it was multifactorial. Ammonia level normal but still may have a component of hepatic encephalopathy -Lactulose twice daily -monitor status -Antibiotic changes above Large left pleural effusion - I suspect this is a complication of his advanced liver disease. respiratory status improved with arthrodesis, no evidence for heart failure on echocardiogram. -followup cultures Hematuria -Discontinue Ojeda catheter Cirrhosis - alcoholic cirrhosis is suspected and workup for paraproteinemia has been unremarkable. Complicated by anasarca, coagulopathy and portal hypertension based on CT scan. he also has impressive thrombocytopenia which hopefully is starting to trend in the right direction. -Continue diuretics including IV furosemide and oral spironolactone -Saline lock IV Anasarca - probably related to liver disease. Using mechanical methods including ULISES wraps of the legs. Echocardiogram completed and did not show evidence for congestive heart failure. Renal function has worsened with diuretics. -Decrease furosemide to twice daily -1200 mL daily fluid restriction -2 g sodium diet -ULISES wraps to both legs from foot to thigh -continue diuretics Acute kidney injury - baseline creatinine a few months ago was 0.7 but levels have been stable at 1.3-1.4 during hospital stay. Creatinine has increased with diuresis -Saline lock IV -Change diuretic therapy as above -Repeat labs in the morning Maintenance issues - - DVT prophylaxis - mechanical with thrombocytopenia - GI prophylaxis - proton pump inhibitor - Nutrition - low sodium diet - Ojeda catheter - placed 10/30 for strict intake and output monitoring. still closely monitoring intake and output, hopefully this can be removed in the near future. Disposition - anticipate discharge home after the hospital stay
[2016-11-05] MEDS: Lactulose Soln 10 GM/15 ML 15 ML UD Cup PO SCH ×2 (14:57→20:29)
[2016-11-06] MEDS: Pantoprazole 40 MG Tab.CR PO SCH (07:37)
[2016-11-06] MEDS: Spironolactone 25 MG Tab PO SCH ×2 (07:37→14:32)
[2016-11-06] MEDS: Furosemide 40 MG/4 ML VIAL IVPUSH SCH (07:38)
[2016-11-06] MEDS: Albuterol/Ipratropium 3.0-0.5 MG/3 ML Neb Soln INH SCH ×4 (07:52→21:59)
[2016-11-06] MEDS ORDERED: Magnesium Sulfate/Water 2 GM in Premix Bag 1 BAG IV ONE (10:00)
[2016-11-06] MEDS: Fluticasone Propionate Nasal Spray 16 GM Bottle NAS SCH (10:25)
[2016-11-06] MEDS: Folic Acid 1 MG Tab PO SCH (10:25)
[2016-11-06] MEDS: Lactulose Soln 10 GM/15 ML 15 ML UD Cup PO SCH ×2 (10:25→21:56)
[2016-11-06] MEDS: Doxycycline 100 MG in Sodium Chloride 0.9% 100 ML IV SCH ×2 (10:26→21:29)
[2016-11-06] MEDS: predniSONE 20 MG Tab PO SCH (10:26)
[2016-11-06] MEDS: Thiamine 100 MG Tab PO SCH (10:26)
[2016-11-06] MEDS: guaiFENesin 600 MG Tab.ER PO SCH ×2 (10:26→22:25)
[2016-11-06] MEDS: Magnesium Oxide 400 MG Tab PO SCH ×2 (10:26→21:56)
[2016-11-06] MEDS: Multivitamins with Iron/Calcium/Folic Acid/Minerals Tab PO SCH (10:26)
[2016-11-06] MEDS: Cholecalciferol (Vitamin D3) 1,000 Unit Tab PO SCH (10:27)
--- NOTE | 2016-11-06 17:00 | PCM.PN ---
- General Info Date of Service: 11/06/16 - Review of Systems General: Reports: weakness. Denies: fever, chills Pulmonary: Reports: no symptoms Cardiovascular: Reports: edema. Denies: chest pain, palpitations, dyspnea on exertion, orthopnea, PND Gastrointestinal: Reports: No symptoms Systems Review Comment:: This patient has noted improvement in his peripheral edema over the past few days. Unfortunately with aggressive diuretic therapy his creatinine has climbed. Respiratory status has been good and he has remained afebrile with good vital signs. - Patient Data Vitals - most recent: Last Vital Signs Temp 96.6 F 11/06/16 15:04 Pulse 99 11/06/16 15:04 Resp 18 11/06/16 15:04 BP 129/82 11/06/16 15:04 Pulse Ox 94 L 11/06/16 15:04 Weight - most recent: 266 lb 8 oz I&O - last 24 hours: Intake & Output 11/06/16 11/06/16 11/06/16 06:59 14:59 22:59 Intake Total 240 870 Output Total 200 200 Balance 40 670 Lab Results last 24 hrs: Laboratory Results - last 24 hr 11/06/16 11/06/16 Range/Units 05:45 05:45 WBC 12.6 H (4.5-11.0) K/uL RBC 3.91 L (4.30-5.90) M/uL Hgb 13.4 (12.0-15.0) g/dL Hct 38.3 L (40.0-54.0) % MCV 98 (80-98) fL MCH 34 H (27-31) pg MCHC 35 (32-36) % Plt Count 45 L (150-400) K/uL Neut % (Auto) 80 H (36-66) % Lymph % (Auto) 4 L (24-44) % [place] % (Auto) 16 H (2-6) % Eos % (Auto) 0 L (2-4) % Baso % (Auto) 0 (0-1) % Sodium 136 L (140-148) mmol/L Potassium 4.5 (3.6-5.2) mmol/L Chloride 101 (100-108) mmol/L Carbon Dioxide 31 (21-32) mmol/L Anion Gap 8.5 (5.0-14.0) mmol/L BUN 37 H (7-18) mg/dL Creatinine 1.8 H (0.8-1.3) mg/dL Est Cr Clr Drug Dosing 43.98 mL/min Estimated GFR (MDRD) 38 L (>60) Glucose 116 H (74-106) mg/dL Calcium 7.7 L (8.5-10.1) mg/dL Magnesium 1.6 L (1.8-2.4) mg/dL Total Bilirubin 2.1 H (0.2-1.0) mg/dL AST 57 H (15-37) U/L ALT 51 (12-78) U/L Alkaline Phosphatase 161 H (46-116) U/L Total Protein 5.6 L (6.4-8.2) g/dL Albumin 1.7 L (3.4-5.0) g/dL Globulin 3.9 H (2.3-3.5) g/dL Albumin/Globulin Ratio 0.4 L (1.2-2.2) Med Orders - Current: Current Medications Acetaminophen (Tylenol) 650 mg PO Q4H PRN PRN Reason: Pain (Mild 1-3)/fever Last Admin: 11/04/16 22:40 Dose: 650 mg Albuterol (Ventolin Hfa) 0 gm INH Q4H PRN PRN Reason: sob Albuterol (Proventil Neb Soln) 2.5 mg NEB Q4H PRN PRN Reason: Shortness Of Breath/wheezing Last Admin: 10/31/16 18:53 Dose: 2.5 mg Albuterol/Ipratropium (Duoneb 3.0-0.5 Mg/3 Ml) 3 ml INH QIDRT [facility] Last Admin: 11/06/16 14:37 Dose: 3 ml Cholecalciferol (Vitamin D3) 1,000 units PO DAILY [facility] Last Admin: 11/06/16 10:27 Dose: 1,000 units Fluticasone Propionate (Flonase) 0 gm RUSSELL DAILY [facility] Last Admin: 11/06/16 10:25 Dose: 2 spray Folic Acid (Folic Acid) 1 mg PO DAILY [facility] Last Admin: 11/06/16 10:25 Dose: 1 mg Guaifenesin (Mucinex) 600 mg PO BID [facility] Last Admin: 11/06/16 10:26 Dose: 600 mg Guaifenesin/Codeine Phosphate (Robitussin Ac) 10 ml PO Q4H PRN PRN Reason: Cough Last Admin: 11/01/16 22:00 Dose: 10 ml Doxycycline Hyclate 100 mg/ (Sodium Chloride) 100 mls @ 100 mls/hr IV Q12H [facility] Last Admin: 11/06/16 10:26 Dose: 100 mls/hr Lactulose (Chronulac) 10 gm PO BID [facility] Last Admin: 11/06/16 10:25 Dose: 10 gm Lorazepam (Ativan) 0.5 - 1 mg IVPUSH Q2H PRN PRN Reason: Anxiety Last Admin: 11/03/16 02:23 Dose: 1 mg Magnesium Oxide (Magnesium Oxide) 400 mg PO BID [facility] Last Admin: 11/06/16 10:26 Dose: 400 mg Multivitamins/Minerals (Thera M Plus) 1 tab PO DAILY [facility] Last Admin: 11/06/16 10:26 Dose: 1 tab Ondansetron HCl (Zofran Odt) 4 mg PO Q6H PRN PRN Reason: Nausea able to take PO Pantoprazole Sodium (Protonix) 40 mg PO ACBREAKFAST [facility] Last Admin: 11/06/16 07:37 Dose: 40 mg Prednisone (Prednisone) 20 mg PO DAILY [facility] Last Admin: 11/06/16 10:26 Dose: 20 mg Sodium Chloride (Saline Flush) 10 ml FLUSH ASDIRECTED PRN PRN Reason: Keep Vein Open Spironolactone (Aldactone) 50 mg PO BIDDIURETIC [facility] Last Admin: 11/06/16 14:32 Dose: 50 mg Thiamine HCl (Vitamin B-1) 100 mg PO DAILY [facility] Last Admin: 11/06/16 10:26 Dose: 100 mg Discontinued Medications Albuterol/Ipratropium (Duoneb 3.0-0.5 Mg/3 Ml) 3 ml NEB ONETIME ONE Stop: 10/30/16 15:58 Last Admin: 10/30/16 16:12 Dose: 3 ml Amoxicillin/Clavulanate Potassium (Augmentin 875 Mg/125 Mg) 1 tab PO BID [facility] Last Admin: 11/03/16 08:34 Dose: 1 tab Fentanyl (Sublimaze) Confirm Administered Dose 100 mcg .ROUTE .STK-MED ONE Stop: 11/01/16 10:45 Fluticasone Propionate (Flonase) 0 gm RUSSELL DAILY [facility] Furosemide (Lasix) 40 mg PO BIDDIURETIC [facility] Last Admin: 11/02/16 09:27 Dose: 40 mg Furosemide (Lasix) 80 mg PO BIDDIURETIC [facility] Last Admin: 11/04/16 07:19 Dose: 80 mg Furosemide (Lasix) 40 mg IVPUSH Q8H [facility] Last Admin: 11/05/16 08:10 Dose: 40 mg Furosemide (Lasix) 40 mg IVPUSH Q12H [facility] Furosemide (Lasix) 40 mg IVPUSH Q12H [facility] Last Admin: 11/06/16 07:38 Dose: 40 mg Sodium Chloride (Normal Saline) 1,000 mls @ 125 mls/hr IV ASDIRECTED [facility] Stop: 10/31/16 02:08 Sodium Chloride (Normal Saline) 85 mls @ 3.5 mls/sec IV ASDIRECTED [facility] Last Admin: 10/31/16 08:02 Dose: 3.5 mls/sec Magnesium Sulfate 2 gm/ Premix 50 mls @ 25 mls/hr IV Q6H [facility] Stop: 10/31/16 14:00 Last Admin: 10/31/16 10:43 Dose: 25 mls/hr Magnesium Sulfate 2 gm/ Sodium (Chloride) 54 mls @ 27 mls/hr IV Q6H [facility] Stop: 11/01/16 06:59 Last Admin: 11/01/16 05:00 Dose: 27 mls/hr Ceftriaxone Sodium 2 gm/ (Sodium Chloride) 50 mls @ 100 mls/hr IV Q24H [facility] Last Admin: 11/03/16 11:57 Dose: 100 mls/hr Ceftriaxone Sodium 2 gm/ (Sodium Chloride) 50 mls @ 100 mls/hr IV Q24H [facility] Magnesium Sulfate 2 gm/ Premix 50 mls @ 25 mls/hr IV ONETIME ONE Stop: 11/06/16 11:59 Last Admin: 11/06/16 11:54 Dose: 25 mls/hr Iopamidol (Isovue-300 (61%)) 150 ml IV . DIRECTED PRN PRN Reason: RADIOLOGY EXAM Stop: 11/01/16 07:12 Last Admin: 10/31/16 08:02 Dose: 150 ml Levofloxacin (Levaquin) 250 mg PO Q24H [facility] Last Admin: 11/03/16 11:11 Dose: 250 mg Levofloxacin (Levaquin) 500 mg PO Q24H [facility] Last Admin: 11/05/16 11:35 Dose: 500 mg Lidocaine (Lidocaine 4% Top Soln) Confirm Administered Dose 4 ml .ROUTE .STK- MED ONE Stop: 11/01/16 14:32 Lidocaine HCl (Xylocaine 2% Jelly) 10 ml MUCMEM ONETIME ONE Stop: 10/30/16 23:34 Last Admin: 10/30/16 23:49 Dose: 10 ml Lidocaine HCl (Xylocaine 4% Top Soln) Confirm Administered Dose 50 ml .ROUTE .STK-MED ONE Stop: 11/01/16 08:36 Last Admin: 11/01/16 16:35 Dose: 50 ml Methylprednisolone Sodium Succinate (Solu-Medrol) 62.5 mg IVPUSH Q8H [facility] Stop: 10/31/16 02:01 Last Admin: 10/31/16 02:12 Dose: 62.5 mg Midazolam HCl (Versed 1 Mg/Ml) Confirm Administered Dose 2 mg .ROUTE .STK-MED ONE Stop: 11/01/16 10:45 Prednisone (Prednisone) 40 mg PO DAILY [facility] Last Admin: 11/02/16 09:28 Dose: 40 mg Propofol (Diprivan 20 Ml) Confirm Administered Dose 200 mg .ROUTE .STK-MED ONE Stop: 11/01/16 10:45 Sodium Chloride (Saline Flush) 10 ml FLUSH ONETIME ONE Stop: 10/31/16 07:12 Last Admin: 10/31/16 08:01 Dose: 10 ml Spironolactone (Aldactone) 25 mg PO BIDDIURETIC [facility] Last Admin: 11/02/16 09:27 Dose: 25 mg - Exam Quality Assessment: supplemental oxygen, DVT prophylaxis General: alert, oriented, cooperative, no acute distress Lungs: Clear to auscultation, Normal respiratory effort Cardiovascular: regular rate, regular rhythm, no murmurs Abdomen: bowel sounds present, soft, no tenderness, no distension Extremities: edema - Problem List Review Problem List Initiated/Reviewed/Updated: Yes - My Orders Last 24 Hours: My Active Orders 11/06/16 09:00 Magnesium Oxide 400 mg PO BID 11/07/16 05:00 CBC WITH AUTO DIFF [HEME] Timed COMPREHENSIVE METABOLIC PN,CMP [CHEM] Timed - Plan Plan:: Assessment and plan - Right upper lobe pneumonia with acute exacerbation of asthma/COPD - CT scan revealed pneumonia that was not appreciated on chest x-ray. bronchoscopy unremarkable. Cultures growing staph epidermidis resistant to fluoroquinolones. He is done well over the past few days is concerning his respiratory status with less shortness of breath and cough Culture also growing yeast which is likely a contaminant -Continue doxycycline -Continue prednisone with taper (decreased to 20 mg on 11/03) -Scheduled and as needed nebulizers -Supplement oxygen if needed Delirium - Ammonia level normal but still may have a component of hepatic encephalopathy. Delirium has improved over the past 24 hours, he is more alert and interactive. -Lactulose twice daily -monitor status -Antibiotic changes above Large left pleural effusion - I suspect this is a complication of his advanced liver disease. respiratory status improved with arthrodesis, no evidence for heart failure on echocardiogram. -followup cultures Hematuria -Discontinue Ojeda catheter Cirrhosis - alcoholic cirrhosis is suspected and workup for paraproteinemia has been unremarkable. Complicated by anasarca, coagulopathy and portal hypertension based on CT scan. he also has impressive thrombocytopenia which hopefully is starting to trend in the right direction. -Continue diuretics including IV furosemide and oral spironolactone -Saline lock IV Anasarca - probably related to liver disease. Using mechanical methods including ULISES wraps of the legs. Echocardiogram completed and did not show evidence for congestive heart failure. Renal function has worsened with diuretics, we'll need to back off attempts at diuresis until renal function improves -Decrease furosemide to twice daily -1200 mL daily fluid restriction -2 g sodium diet -ULISES wraps to both legs from foot to thigh -Hold diuretics Acute kidney injury - baseline creatinine a few months ago was 0.7 but levels have been stable at 1.3-1.4 during hospital stay. Creatinine has increased with diuresis -Saline lock IV -Change diuretic therapy as above -Repeat labs in the morning Maintenance issues - - DVT prophylaxis - mechanical with thrombocytopenia - GI prophylaxis - proton pump inhibitor - Nutrition - low sodium diet - Ojeda catheter - placed 10/30 for strict intake and output monitoring. still closely monitoring intake and output, hopefully this can be removed in the near future. Disposition - anticipate discharge home after the hospital stay
[2016-11-07] MEDS ORDERED: Lidocaine 2% Jelly 10 ML Urojet MUCMEM ONE (00:48)
[2016-11-07] MEDS ORDERED: Lidocaine 2% Jelly 10 ML Urojet ONE (00:54)
[2016-11-07] MEDS: Albuterol/Ipratropium 3.0-0.5 MG/3 ML Neb Soln INH SCH ×4 (07:05→20:18)
[2016-11-07] MEDS: Spironolactone 25 MG Tab PO SCH ×2 (08:00→13:52)
[2016-11-07] MEDS: Pantoprazole 40 MG Tab.CR PO SCH (08:00)
[2016-11-07] MEDS ORDERED: Furosemide 40 MG/4 ML VIAL IVPUSH ONE (09:00)
[2016-11-07] MEDS: Lactulose Soln 10 GM/15 ML 15 ML UD Cup PO SCH ×2 (09:21→20:12)
[2016-11-07] MEDS: Fluticasone Propionate Nasal Spray 16 GM Bottle NAS SCH (09:21)
[2016-11-07] MEDS: Folic Acid 1 MG Tab PO SCH (09:22)
[2016-11-07] MEDS: Thiamine 100 MG Tab PO SCH (09:25)
[2016-11-07] MEDS: guaiFENesin 600 MG Tab.ER PO SCH ×2 (09:25→20:12)
[2016-11-07] MEDS: Magnesium Oxide 400 MG Tab PO SCH ×2 (09:25→20:12)
[2016-11-07] MEDS: predniSONE 20 MG Tab PO SCH (09:25)
[2016-11-07] MEDS: Multivitamins with Iron/Calcium/Folic Acid/Minerals Tab PO SCH (09:25)
[2016-11-07] MEDS: Cholecalciferol (Vitamin D3) 1,000 Unit Tab PO SCH (09:26)
[2016-11-07] MEDS: Doxycycline 100 MG in Sodium Chloride 0.9% 100 ML IV SCH (09:47)
--- NOTE | 2016-11-07 12:00 | PCM.PN ---
- General Info Date of Service: 11/07/16 Functional Status: Reports: tolerating diet, urinating. Denies: ambulating - Review of Systems General: Reports: weakness. Denies: fever, chills Pulmonary: Reports: no symptoms Cardiovascular: Reports: edema. Denies: chest pain, palpitations, dyspnea on exertion, orthopnea, PND Gastrointestinal: Reports: No symptoms Systems Review Comment:: This patient unfortunately fell during the night, he experienced some abrasion to his for head, face, and arm. Denies significant pain or headache, neurologic function has been stable. Continues to diurese with excellent improvement in his peripheral and central edema. Remains very weak and has difficulty ambulating, is willing to consider mcc placement at the time of discharge. Respiratory status has been stable, vital signs good and he has remained afebrile. - Patient Data Vitals - most recent: Last Vital Signs Temp 98.6 F 11/07/16 11:00 Pulse 102 H 11/07/16 11:00 Resp 20 11/07/16 11:00 BP 147/79 H 11/07/16 11:00 Pulse Ox 96 11/07/16 11:00 Weight - most recent: 262 lb 1.6 oz I&O - last 24 hours: Intake & Output 11/06/16 11/07/16 11/07/16 22:59 06:59 14:59 Intake Total 587 460 Output Total 525 Balance 587 -525 460 Lab Results last 24 hrs: Laboratory Results - last 24 hr 11/07/16 11/07/16 Range/Units 05:37 05:37 WBC 11.6 H (4.5-11.0) K/uL RBC 3.84 L (4.30-5.90) M/uL Hgb 13.0 (12.0-15.0) g/dL Hct 37.4 L (40.0-54.0) % MCV 97 (80-98) fL MCH 34 H (27-31) pg MCHC 35 (32-36) % Plt Count 35 L (150-400) K/uL Neut % (Auto) 81 H (36-66) % Lymph % (Auto) 4 L (24-44) % [place] % (Auto) 15 H (2-6) % Eos % (Auto) 0 L (2-4) % Baso % (Auto) 0 (0-1) % Sodium 136 L (140-148) mmol/L Potassium 4.6 (3.6-5.2) mmol/L Chloride 102 (100-108) mmol/L Carbon Dioxide 30 (21-32) mmol/L Anion Gap 8.6 (5.0-14.0) mmol/L BUN 42 H (7-18) mg/dL Creatinine 1.8 H (0.8-1.3) mg/dL Est Cr Clr Drug Dosing 43.98 mL/min Estimated GFR (MDRD) 38 L (>60) Glucose 111 H (74-106) mg/dL Calcium 8.0 L (8.5-10.1) mg/dL Total Bilirubin 2.3 H (0.2-1.0) mg/dL AST 56 H (15-37) U/L ALT 53 (12-78) U/L Alkaline Phosphatase 148 H (46-116) U/L Total Protein 5.3 L (6.4-8.2) g/dL Albumin 1.7 L (3.4-5.0) g/dL Globulin 3.6 H (2.3-3.5) g/dL Albumin/Globulin Ratio 0.5 L (1.2-2.2) Med Orders - Current: Current Medications Acetaminophen (Tylenol) 650 mg PO Q4H PRN PRN Reason: Pain (Mild 1-3)/fever Last Admin: 11/04/16 22:40 Dose: 650 mg Albuterol (Ventolin Hfa) 0 gm INH Q4H PRN PRN Reason: sob Albuterol (Proventil Neb Soln) 2.5 mg NEB Q4H PRN PRN Reason: Shortness Of Breath/wheezing Last Admin: 10/31/16 18:53 Dose: 2.5 mg Albuterol/Ipratropium (Duoneb 3.0-0.5 Mg/3 Ml) 3 ml INH QIDRT [facility] Last Admin: 11/07/16 10:59 Dose: 3 ml Cholecalciferol (Vitamin D3) 1,000 units PO DAILY [facility] Last Admin: 11/07/16 09:26 Dose: 1,000 units Fluticasone Propionate (Flonase) 0 gm RUSSELL DAILY [facility] Last Admin: 11/07/16 09:21 Dose: 2 spray Folic Acid (Folic Acid) 1 mg PO DAILY [facility] Last Admin: 11/07/16 09:22 Dose: 1 mg Guaifenesin (Mucinex) 600 mg PO BID [facility] Last Admin: 11/07/16 09:25 Dose: 600 mg Guaifenesin/Codeine Phosphate (Robitussin Ac) 10 ml PO Q4H PRN PRN Reason: Cough Last Admin: 11/01/16 22:00 Dose: 10 ml Doxycycline Hyclate 100 mg/ (Sodium Chloride) 100 mls @ 100 mls/hr IV Q12H [facility] Last Admin: 11/07/16 09:47 Dose: 100 mls/hr Lactulose (Chronulac) 10 gm PO BID [facility] Last Admin: 11/07/16 09:21 Dose: 10 gm Lorazepam (Ativan) 0.5 - 1 mg IVPUSH Q2H PRN PRN Reason: Anxiety Last Admin: 11/03/16 02:23 Dose: 1 mg Magnesium Oxide (Magnesium Oxide) 400 mg PO BID [facility] Last Admin: 11/07/16 09:25 Dose: 400 mg Multivitamins/Minerals (Thera M Plus) 1 tab PO DAILY [facility] Last Admin: 11/07/16 09:25 Dose: 1 tab Ondansetron HCl (Zofran Odt) 4 mg PO Q6H PRN PRN Reason: Nausea able to take PO Pantoprazole Sodium (Protonix) 40 mg PO ACBREAKFAST [facility] Last Admin: 11/07/16 08:00 Dose: 40 mg Prednisone (Prednisone) 20 mg PO DAILY [facility] Last Admin: 11/07/16 09:25 Dose: 20 mg Sodium Chloride (Saline Flush) 10 ml FLUSH ASDIRECTED PRN PRN Reason: Keep Vein Open Spironolactone (Aldactone) 50 mg PO BIDDIURETIC [facility] Last Admin: 11/07/16 08:00 Dose: 50 mg Thiamine HCl (Vitamin B-1) 100 mg PO DAILY [facility] Last Admin: 11/07/16 09:25 Dose: 100 mg Discontinued Medications Albuterol/Ipratropium (Duoneb 3.0-0.5 Mg/3 Ml) 3 ml NEB ONETIME ONE Stop: 10/30/16 15:58 Last Admin: 10/30/16 16:12 Dose: 3 ml Amoxicillin/Clavulanate Potassium (Augmentin 875 Mg/125 Mg) 1 tab PO BID [facility] Last Admin: 11/03/16 08:34 Dose: 1 tab Fentanyl (Sublimaze) Confirm Administered Dose 100 mcg .ROUTE .STK-MED ONE Stop: 11/01/16 10:45 Fluticasone Propionate (Flonase) 0 gm RUSSELL DAILY [facility] Furosemide (Lasix) 40 mg PO BIDDIURETIC [facility] Last Admin: 11/02/16 09:27 Dose: 40 mg Furosemide (Lasix) 80 mg PO BIDDIURETIC [facility] Last Admin: 11/04/16 07:19 Dose: 80 mg Furosemide (Lasix) 40 mg IVPUSH Q8H [facility] Last Admin: 11/05/16 08:10 Dose: 40 mg Furosemide (Lasix) 40 mg IVPUSH Q12H [facility] Furosemide (Lasix) 40 mg IVPUSH Q12H [facility] Last Admin: 11/06/16 07:38 Dose: 40 mg Furosemide (Lasix) 40 mg IVPUSH ONETIME ONE Stop: 11/07/16 09:01 Last Admin: 11/07/16 09:22 Dose: 40 mg Sodium Chloride (Normal Saline) 1,000 mls @ 125 mls/hr IV ASDIRECTED [facility] Stop: 10/31/16 02:08 Sodium Chloride (Normal Saline) 85 mls @ 3.5 mls/sec IV ASDIRECTED [facility] Last Admin: 10/31/16 08:02 Dose: 3.5 mls/sec Magnesium Sulfate 2 gm/ Premix 50 mls @ 25 mls/hr IV Q6H [facility] Stop: 10/31/16 14:00 Last Admin: 10/31/16 10:43 Dose: 25 mls/hr Magnesium Sulfate 2 gm/ Sodium (Chloride) 54 mls @ 27 mls/hr IV Q6H [facility] Stop: 11/01/16 06:59 Last Admin: 11/01/16 05:00 Dose: 27 mls/hr Ceftriaxone Sodium 2 gm/ (Sodium Chloride) 50 mls @ 100 mls/hr IV Q24H [facility] Last Admin: 11/03/16 11:57 Dose: 100 mls/hr Ceftriaxone Sodium 2 gm/ (Sodium Chloride) 50 mls @ 100 mls/hr IV Q24H [facility] Magnesium Sulfate 2 gm/ Premix 50 mls @ 25 mls/hr IV ONETIME ONE Stop: 11/06/16 11:59 Last Admin: 11/06/16 11:54 Dose: 25 mls/hr Iopamidol (Isovue-300 (61%)) 150 ml IV . DIRECTED PRN PRN Reason: RADIOLOGY EXAM Stop: 11/01/16 07:12 Last Admin: 10/31/16 08:02 Dose: 150 ml Levofloxacin (Levaquin) 250 mg PO Q24H [facility] Last Admin: 11/03/16 11:11 Dose: 250 mg Levofloxacin (Levaquin) 500 mg PO Q24H [facility] Last Admin: 11/05/16 11:35 Dose: 500 mg Lidocaine (Lidocaine 4% Top Soln) Confirm Administered Dose 4 ml .ROUTE .STK- MED ONE Stop: 11/01/16 14:32 Lidocaine HCl (Xylocaine 2% Jelly) 10 ml MUCMEM ONETIME ONE Stop: 10/30/16 23:34 Last Admin: 10/30/16 23:49 Dose: 10 ml Lidocaine HCl (Xylocaine 4% Top Soln) Confirm Administered Dose 50 ml .ROUTE .STK-MED ONE Stop: 11/01/16 08:36 Last Admin: 11/01/16 16:35 Dose: 50 ml Lidocaine HCl (Xylocaine 2% Jelly) 10 ml MUCMEM ONETIME ONE Stop: 11/07/16 00:49 Last Admin: 11/07/16 01:04 Dose: Not Given Lidocaine HCl (Xylocaine 2% Jelly) Confirm Administered Dose 10 ml .ROUTE .STK- MED ONE Stop: 11/07/16 00:55 Last Admin: 11/07/16 01:04 Dose: 10 ml Methylprednisolone Sodium Succinate (Solu-Medrol) 62.5 mg IVPUSH Q8H [facility] Stop: 10/31/16 02:01 Last Admin: 10/31/16 02:12 Dose: 62.5 mg Midazolam HCl (Versed 1 Mg/Ml) Confirm Administered Dose 2 mg .ROUTE .STK-MED ONE Stop: 11/01/16 10:45 Prednisone (Prednisone) 40 mg PO DAILY [facility] Last Admin: 11/02/16 09:28 Dose: 40 mg Propofol (Diprivan 20 Ml) Confirm Administered Dose 200 mg .ROUTE .STK-MED ONE Stop: 11/01/16 10:45 Sodium Chloride (Saline Flush) 10 ml FLUSH ONETIME ONE Stop: 10/31/16 07:12 Last Admin: 10/31/16 08:01 Dose: 10 ml Spironolactone (Aldactone) 25 mg PO BIDDIURETIC [facility] Last Admin: 11/02/16 09:27 Dose: 25 mg - Exam Quality Assessment: DVT prophylaxis General: alert, cooperative, no acute distress Lungs: Normal respiratory effort, Decreased breath sounds, Wheezing. No: Crackles, Rales, Rhonchi, Rub, Stridor Cardiovascular: regular rate, regular rhythm, no murmurs Abdomen: bowel sounds present, soft, no tenderness, no distension Extremities: edema Skin: warm, dry, intact - Problem List Review Problem List Initiated/Reviewed/Updated: Yes - My Orders Last 24 Hours: My Active Orders 11/07/16 00:48 Urinary Catheter Assessment [RC] ASDIRECTED 11/07/16 01:00 Insert Ojeda Catheter [Insert Urinary Catheter] [OM.PC] Q24H 11/08/16 05:00 CBC WITH AUTO DIFF [HEME] Timed COMPREHENSIVE METABOLIC PN,CMP [CHEM] Timed INR,PT,PROTHROMBIN TIME [COAG] Timed MAGNESIUM [CHEM] Timed - Plan Plan:: Assessment and plan - Right upper lobe pneumonia with acute exacerbation of asthma/COPD - CT scan revealed pneumonia that was not appreciated on chest x-ray. bronchoscopy unremarkable. Cultures growing staph epidermidis resistant to fluoroquinolones. He is done well over the past few days is concerning his respiratory status with less shortness of breath and cough Culture also growing yeast which is likely a contaminant -Continue doxycycline -Continue prednisone with taper (decreased to 20 mg on 11/03) -Scheduled and as needed nebulizers -Supplement oxygen if needed Delirium - Ammonia level normal but still may have a component of hepatic encephalopathy. Delirium has improved over the past 24 hours, he is more alert and interactive. -Lactulose twice daily -monitor status -Antibiotic changes above Large left pleural effusion - I suspect this is a complication of his advanced liver disease. respiratory status improved with arthrodesis, no evidence for heart failure on echocardiogram. -followup cultures Hematuria -Discontinue Ojeda catheter Cirrhosis - alcoholic cirrhosis is suspected and workup for paraproteinemia has been unremarkable. Complicated by anasarca, coagulopathy and portal hypertension based on CT scan. he also has impressive thrombocytopenia which hopefully is starting to trend in the right direction. -Continue diuretics including IV furosemide and oral spironolactone -Saline lock IV Anasarca - probably related to liver disease. Using mechanical methods including ULISES wraps of the legs. Echocardiogram completed and did not show evidence for congestive heart failure. Creatinine has increased from baseline, but has stabilized over the past 24 hours. Diuresis has been excellent with obvious improvement in anasarca -furosemide daily pending improvement in renal function -1200 mL daily fluid restriction -2 g sodium diet -ULISES wraps to both legs from foot to thigh Acute kidney injury - creatinine elevated from baseline with recent diuresis -Saline lock IV -Change diuretic therapy as above -Repeat labs in the morning Maintenance issues - - DVT prophylaxis - mechanical with thrombocytopenia - GI prophylaxis - proton pump inhibitor - Nutrition - low sodium diet - Ojeda catheter - placed 10/30 for strict intake and output monitoring. still closely monitoring intake and output, hopefully this can be removed in the near future. Disposition - anticipate discharge home versus mcc
[2016-11-07] MEDS ORDERED: predniSONE 20 MG Tab PO SCH (14:00)
[2016-11-07] MEDS: Doxycycline 100 MG Cap PO SCH (20:12)
[2016-11-07] MEDS: Albuterol 0.083% 2.5 MG/3 ML Neb Soln NEB PRN (21:53)
[2016-11-08] MEDS: Albuterol/Ipratropium 3.0-0.5 MG/3 ML Neb Soln INH SCH ×4 (07:40→20:49)
[2016-11-08] MEDS: Spironolactone 25 MG Tab PO SCH (09:45)
[2016-11-08] MEDS: Pantoprazole 40 MG Tab.CR PO SCH (09:46)
[2016-11-08] MEDS: predniSONE 10 MG Tab PO SCH (09:49)
[2016-11-08] MEDS: Lactulose Soln 10 GM/15 ML 15 ML UD Cup PO SCH ×2 (09:49→21:02)
[2016-11-08] MEDS: Doxycycline 100 MG Cap PO SCH ×2 (09:50→21:02)
[2016-11-08] MEDS: Multivitamins with Iron/Calcium/Folic Acid/Minerals Tab PO SCH (09:50)
[2016-11-08] MEDS: Folic Acid 1 MG Tab PO SCH (09:50)
[2016-11-08] MEDS: Magnesium Oxide 400 MG Tab PO SCH ×2 (09:50→21:02)
[2016-11-08] MEDS: guaiFENesin 600 MG Tab.ER PO SCH ×2 (09:50→21:03)
[2016-11-08] MEDS: Fluticasone Propionate Nasal Spray 16 GM Bottle NAS SCH (09:50)
[2016-11-08] MEDS: Thiamine 100 MG Tab PO SCH (09:50)
[2016-11-08] MEDS: Cholecalciferol (Vitamin D3) 1,000 Unit Tab PO SCH (09:51)
--- NOTE | 2016-11-08 15:30 | PCM.PN ---
- General Info Date of Service: 11/08/16 Functional Status: Reports: tolerating diet - Review of Systems General: Reports: weakness. Denies: fever, chills Pulmonary: Reports: no symptoms Cardiovascular: Reports: edema. Denies: chest pain, palpitations, orthopnea, PND Gastrointestinal: Reports: No symptoms Systems Review Comment:: This patient is relatively well over the past 24 hours, unfortunately renal function has declined again over that period of time. Respiratory status is stable, vital signs good, and he has remained afebrile. Continues to be very weak unable to ambulate or transfer independently. - Patient Data Vitals - most recent: Last Vital Signs Temp 97.3 F 11/08/16 14:39 Pulse 109 H 11/08/16 14:42 Resp 20 11/08/16 14:39 BP 123/75 11/08/16 14:39 Pulse Ox 95 11/08/16 14:42 Weight - most recent: 262 lb 1.6 oz I&O - last 24 hours: Intake & Output 11/08/16 11/08/16 11/08/16 06:59 14:59 22:59 Intake Total 487 960 Output Total 375 300 Balance 112 660 Lab Results last 24 hrs: Laboratory Results - last 24 hr 11/08/16 11/08/16 11/08/16 Range/Units 05:00 05:00 05:00 WBC 14.7 H (4.5-11.0) K/uL RBC 3.67 L (4.30-5.90) M/uL Hgb 12.6 (12.0-15.0) g/dL Hct 35.6 L (40.0-54.0) % MCV 97 (80-98) fL MCH 34 H (27-31) pg MCHC 35 (32-36) % Plt Count 45 L (150-400) K/uL Neut % (Auto) 81 H (36-66) % Lymph % (Auto) 4 L (24-44) % [place] % (Auto) 14 H (2-6) % Eos % (Auto) 0 L (2-4) % Baso % (Auto) 0 (0-1) % PT 17.4 H (9.5-12.0) sec INR 1.62 H (0.80-1.20) Sodium 138 L (140-148) mmol/L Potassium 5.1 (3.6-5.2) mmol/L Chloride 102 (100-108) mmol/L Carbon Dioxide 30 (21-32) mmol/L Anion Gap 11.1 (5.0-14.0) mmol/L BUN 49 H (7-18) mg/dL Creatinine 2.1 H (0.8-1.3) mg/dL Est Cr Clr Drug Dosing 37.69 mL/min Estimated GFR (MDRD) 32 L (>60) Glucose 109 H (74-106) mg/dL Calcium 8.1 L (8.5-10.1) mg/dL Magnesium 1.9 (1.8-2.4) mg/dL Total Bilirubin 2.7 H (0.2-1.0) mg/dL AST 86 H (15-37) U/L ALT 65 (12-78) U/L Alkaline Phosphatase 164 H (46-116) U/L Total Protein 5.2 L (6.4-8.2) g/dL Albumin 1.6 L (3.4-5.0) g/dL Globulin 3.6 H (2.3-3.5) g/dL Albumin/Globulin Ratio 0.4 L (1.2-2.2) Med Orders - Current: Current Medications Acetaminophen (Tylenol) 650 mg PO Q4H PRN PRN Reason: Pain (Mild 1-3)/fever Last Admin: 11/04/16 22:40 Dose: 650 mg Albuterol (Ventolin Hfa) 0 gm INH Q4H PRN PRN Reason: sob Albuterol (Proventil Neb Soln) 2.5 mg NEB Q4H PRN PRN Reason: Shortness Of Breath/wheezing Last Admin: 11/07/16 21:53 Dose: 2.5 mg Albuterol/Ipratropium (Duoneb 3.0-0.5 Mg/3 Ml) 3 ml INH QIDRT [facility] Last Admin: 11/08/16 14:41 Dose: 3 ml Cholecalciferol (Vitamin D3) 1,000 units PO DAILY [facility] Last Admin: 11/08/16 09:51 Dose: 1,000 units Doxycycline Hyclate (Vibramycin) 100 mg PO Q12H [facility] Last Admin: 11/08/16 09:50 Dose: 100 mg Fluticasone Propionate (Flonase) 0 gm RUSSELL DAILY [facility] Last Admin: 11/08/16 09:50 Dose: 2 spray Folic Acid (Folic Acid) 1 mg PO DAILY [facility] Last Admin: 11/08/16 09:50 Dose: 1 mg Guaifenesin (Mucinex) 600 mg PO BID [facility] Last Admin: 11/08/16 09:50 Dose: 600 mg Guaifenesin/Codeine Phosphate (Robitussin Ac) 10 ml PO Q4H PRN PRN Reason: Cough Last Admin: 11/01/16 22:00 Dose: 10 ml Lactulose (Chronulac) 10 gm PO BID [facility] Last Admin: 11/08/16 09:49 Dose: 10 gm Lorazepam (Ativan) 0.5 - 1 mg IVPUSH Q2H PRN PRN Reason: Anxiety Last Admin: 11/03/16 02:23 Dose: 1 mg Magnesium Oxide (Magnesium Oxide) 400 mg PO BID [facility] Last Admin: 11/08/16 09:50 Dose: 400 mg Multivitamins/Minerals (Thera M Plus) 1 tab PO DAILY [facility] Last Admin: 11/08/16 09:50 Dose: 1 tab Ondansetron HCl (Zofran Odt) 4 mg PO Q6H PRN PRN Reason: Nausea able to take PO Pantoprazole Sodium (Protonix) 40 mg PO ACBREAKFAST [facility] Last Admin: 11/08/16 09:46 Dose: 40 mg Prednisone (Prednisone) 10 mg PO DAILY@0800 [facility] Last Admin: 11/08/16 09:49 Dose: 10 mg Sodium Chloride (Saline Flush) 10 ml FLUSH ASDIRECTED PRN PRN Reason: Keep Vein Open Spironolactone (Aldactone) 50 mg PO BIDDIURETIC [facility] Last Admin: 11/08/16 09:45 Dose: Not Given Tamsulosin HCl (Flomax) 0.4 mg PO PCBREAKFAST [facility] Thiamine HCl (Vitamin B-1) 100 mg PO DAILY [facility] Last Admin: 11/08/16 09:50 Dose: 100 mg Discontinued Medications Albuterol/Ipratropium (Duoneb 3.0-0.5 Mg/3 Ml) 3 ml NEB ONETIME ONE Stop: 10/30/16 15:58 Last Admin: 10/30/16 16:12 Dose: 3 ml Amoxicillin/Clavulanate Potassium (Augmentin 875 Mg/125 Mg) 1 tab PO BID [facility] Last Admin: 11/03/16 08:34 Dose: 1 tab Fentanyl (Sublimaze) Confirm Administered Dose 100 mcg .ROUTE .STK-MED ONE Stop: 11/01/16 10:45 Fluticasone Propionate (Flonase) 0 gm RUSSELL DAILY [facility] Furosemide (Lasix) 40 mg PO BIDDIURETIC [facility] Last Admin: 11/02/16 09:27 Dose: 40 mg Furosemide (Lasix) 80 mg PO BIDDIURETIC [facility] Last Admin: 11/04/16 07:19 Dose: 80 mg Furosemide (Lasix) 40 mg IVPUSH Q8H [facility] Last Admin: 11/05/16 08:10 Dose: 40 mg Furosemide (Lasix) 40 mg IVPUSH Q12H [facility] Furosemide (Lasix) 40 mg IVPUSH Q12H [facility] Last Admin: 11/06/16 07:38 Dose: 40 mg Furosemide (Lasix) 40 mg IVPUSH ONETIME ONE Stop: 11/07/16 09:01 Last Admin: 11/07/16 09:22 Dose: 40 mg Sodium Chloride (Normal Saline) 1,000 mls @ 125 mls/hr IV ASDIRECTED [facility] Stop: 10/31/16 02:08 Sodium Chloride (Normal Saline) 85 mls @ 3.5 mls/sec IV ASDIRECTED [facility] Last Admin: 10/31/16 08:02 Dose: 3.5 mls/sec Magnesium Sulfate 2 gm/ Premix 50 mls @ 25 mls/hr IV Q6H [facility] Stop: 10/31/16 14:00 Last Admin: 10/31/16 10:43 Dose: 25 mls/hr Magnesium Sulfate 2 gm/ Sodium (Chloride) 54 mls @ 27 mls/hr IV Q6H [facility] Stop: 11/01/16 06:59 Last Admin: 11/01/16 05:00 Dose: 27 mls/hr Ceftriaxone Sodium 2 gm/ (Sodium Chloride) 50 mls @ 100 mls/hr IV Q24H [facility] Last Admin: 11/03/16 11:57 Dose: 100 mls/hr Ceftriaxone Sodium 2 gm/ (Sodium Chloride) 50 mls @ 100 mls/hr IV Q24H [facility] Doxycycline Hyclate 100 mg/ (Sodium Chloride) 100 mls @ 100 mls/hr IV Q12H [facility] Last Admin: 11/07/16 09:47 Dose: 100 mls/hr Magnesium Sulfate 2 gm/ Premix 50 mls @ 25 mls/hr IV ONETIME ONE Stop: 11/06/16 11:59 Last Admin: 11/06/16 11:54 Dose: 25 mls/hr Iopamidol (Isovue-300 (61%)) 150 ml IV . DIRECTED PRN PRN Reason: RADIOLOGY EXAM Stop: 11/01/16 07:12 Last Admin: 10/31/16 08:02 Dose: 150 ml Levofloxacin (Levaquin) 250 mg PO Q24H [facility] Last Admin: 11/03/16 11:11 Dose: 250 mg Levofloxacin (Levaquin) 500 mg PO Q24H [facility] Last Admin: 11/05/16 11:35 Dose: 500 mg Lidocaine (Lidocaine 4% Top Soln) Confirm Administered Dose 4 ml .ROUTE .STK- MED ONE Stop: 11/01/16 14:32 Lidocaine HCl (Xylocaine 2% Jelly) 10 ml MUCMEM ONETIME ONE Stop: 10/30/16 23:34 Last Admin: 10/30/16 23:49 Dose: 10 ml Lidocaine HCl (Xylocaine 4% Top Soln) Confirm Administered Dose 50 ml .ROUTE .STK-MED ONE Stop: 11/01/16 08:36 Last Admin: 11/01/16 16:35 Dose: 50 ml Lidocaine HCl (Xylocaine 2% Jelly) 10 ml MUCMEM ONETIME ONE Stop: 11/07/16 00:49 Last Admin: 11/07/16 01:04 Dose: Not Given Lidocaine HCl (Xylocaine 2% Jelly) Confirm Administered Dose 10 ml .ROUTE .STK- MED ONE Stop: 11/07/16 00:55 Last Admin: 11/07/16 01:04 Dose: 10 ml Methylprednisolone Sodium Succinate (Solu-Medrol) 62.5 mg IVPUSH Q8H [facility] Stop: 10/31/16 02:01 Last Admin: 10/31/16 02:12 Dose: 62.5 mg Midazolam HCl (Versed 1 Mg/Ml) Confirm Administered Dose 2 mg .ROUTE .STK-MED ONE Stop: 11/01/16 10:45 Prednisone (Prednisone) 40 mg PO DAILY [facility] Last Admin: 11/02/16 09:28 Dose: 40 mg Prednisone (Prednisone) 20 mg PO DAILY [facility] Last Admin: 11/07/16 09:25 Dose: 20 mg Prednisone (Prednisone) 10 mg PO DAILY [facility] Last Admin: 11/07/16 13:52 Dose: 10 mg Propofol (Diprivan 20 Ml) Confirm Administered Dose 200 mg .ROUTE .STK-MED ONE Stop: 11/01/16 10:45 Sodium Chloride (Saline Flush) 10 ml FLUSH ONETIME ONE Stop: 10/31/16 07:12 Last Admin: 10/31/16 08:01 Dose: 10 ml Spironolactone (Aldactone) 25 mg PO BIDDIURETIC [facility] Last Admin: 11/02/16 09:27 Dose: 25 mg - Exam Quality Assessment: urine catheter, DVT prophylaxis General: alert, oriented, cooperative, no acute distress Lungs: Clear to auscultation, Normal respiratory effort, Decreased breath sounds Cardiovascular: regular rate, regular rhythm, no murmurs Abdomen: bowel sounds present, soft, no tenderness, no distension Extremities: edema Skin: warm, dry - Problem List Review Problem List Initiated/Reviewed/Updated: Yes - My Orders Last 24 Hours: My Active Orders 11/07/16 21:00 Doxycycline [Vibramycin] 100 mg PO Q12H 11/08/16 08:00 predniSONE 10 mg PO DAILY@0800 11/08/16 15:00 Tamsulosin [Flomax] 0.4 mg PO PCBREAKFAST 11/09/16 05:00 CBC WITH AUTO DIFF [HEME] Timed COMPREHENSIVE METABOLIC PN,CMP [CHEM] Timed INR,PT,PROTHROMBIN TIME [COAG] Timed MAGNESIUM [CHEM] Timed - Plan Plan:: Assessment and plan - Right upper lobe pneumonia with acute exacerbation of asthma/COPD - CT scan revealed pneumonia that was not appreciated on chest x-ray. bronchoscopy unremarkable. Cultures growing staph epidermidis resistant to fluoroquinolones. He is done well over the past few days is concerning his respiratory status with less shortness of breath and cough Culture also growing yeast which is likely a contaminant -Continue doxycycline -Continue prednisone with taper (decreased to 20 mg on 11/03) -Scheduled and as needed nebulizers -Supplement oxygen if needed Delirium - Result -Lactulose twice daily -monitor status -Antibiotic changes above Large left pleural effusion - I suspect this is a complication of his advanced liver disease. respiratory status improved with arthrodesis, no evidence for heart failure on echocardiogram. -followup cultures Hematuria -Discontinue Ojeda catheter Cirrhosis - alcoholic cirrhosis is suspected and workup for paraproteinemia has been unremarkable. Complicated by anasarca, coagulopathy and portal hypertension based on CT scan. he also has impressive thrombocytopenia which hopefully is starting to trend in the right direction. -Continue diuretics including IV furosemide and oral spironolactone -Saline lock IV Anasarca - probably related to liver disease. Using mechanical methods including ULISES wraps of the legs. Echocardiogram completed and did not show evidence for congestive heart failure. Further elevation in creatinine over the past 24 hours and, will need to hold diuretics until renal function improves. -Holter Furosemide and spironolactone -1200 mL daily fluid restriction -2 g sodium diet -ULISES wraps to both legs from foot to thigh Acute kidney injury - creatinine elevated from baseline with recent diuresis -Saline lock IV -Hold diuretics -Repeat labs in the morning Urinary retention -Flomax 0.4 mg by mouth daily -Reattempt to remove Ojeda catheter Maintenance issues - - DVT prophylaxis - mechanical with thrombocytopenia - GI prophylaxis - proton pump inhibitor - Nutrition - low sodium diet - Ojeda catheter - Replaced because of inability to urinate Disposition - anticipate discharge to [facility] after he has completed his hospital stay
[2016-11-08] MEDS: Tamsulosin 0.4 MG Cap.ER PO SCH (16:06)
[2016-11-08] MEDS: Acetaminophen 325 MG Tab PO PRN (21:02)
[2016-11-09] MEDS: Pantoprazole 40 MG Tab.CR PO SCH (07:30)
[2016-11-09] MEDS: Albuterol/Ipratropium 3.0-0.5 MG/3 ML Neb Soln INH SCH ×4 (07:34→20:52)
[2016-11-09] MEDS: Fluticasone Propionate Nasal Spray 16 GM Bottle NAS SCH (09:25)
[2016-11-09] MEDS: Thiamine 100 MG Tab PO SCH (09:25)
[2016-11-09] MEDS: Multivitamins with Iron/Calcium/Folic Acid/Minerals Tab PO SCH (09:25)
[2016-11-09] MEDS: Lactulose Soln 10 GM/15 ML 15 ML UD Cup PO SCH ×2 (09:25→20:50)
[2016-11-09] MEDS: Cholecalciferol (Vitamin D3) 1,000 Unit Tab PO SCH (09:25)
[2016-11-09] MEDS: Magnesium Oxide 400 MG Tab PO SCH ×2 (09:25→20:50)
[2016-11-09] MEDS: Folic Acid 1 MG Tab PO SCH (09:26)
[2016-11-09] MEDS: Doxycycline 100 MG Cap PO SCH ×2 (09:26→20:50)
[2016-11-09] MEDS: guaiFENesin 600 MG Tab.ER PO SCH ×2 (09:26→20:50)
[2016-11-09] MEDS: Tamsulosin 0.4 MG Cap.ER PO SCH (09:26)
[2016-11-09] MEDS: predniSONE 10 MG Tab PO SCH (09:26)
[2016-11-09] MEDS: Sodium Chloride 0.9% 1,000 ML IV SCH ×2 (10:49→20:52)
--- NOTE | 2016-11-09 15:07 | PCM.PN ---
- General Info Date of Service: 11/09/16 Functional Status: Reports: pain controlled - Review of Systems General: Reports: weakness. Denies: fever, chills Pulmonary: Reports: no symptoms Cardiovascular: Reports: no symptoms Gastrointestinal: Reports: No symptoms Systems Review Comment:: Better physically with improvement in energy level and less shortness of breath. Unfortunately renal function is shown further decline despite holding diuretic therapy yesterday. Vital signs have been stable and he has remained afebrile. Anasarca seems to be improving, despite renal insufficiency and holding diuretics. - Patient Data Vitals - most recent: Last Vital Signs Temp 96 F 11/09/16 14:48 Pulse 95 11/09/16 14:48 Resp 17 11/09/16 14:48 BP 99/62 11/09/16 14:48 Pulse Ox 95 11/09/16 14:48 Weight - most recent: 264 lb 8 oz I&O - last 24 hours: Intake & Output 11/09/16 11/09/16 11/09/16 06:59 14:59 22:59 Intake Total 290 320 Output Total 350 Balance -60 320 Lab Results last 24 hrs: Laboratory Results - last 24 hr 11/09/16 11/09/16 11/09/16 Range/Units 05:31 05:31 05:31 WBC 13.5 H (4.5-11.0) K/uL RBC 3.41 L (4.30-5.90) M/uL Hgb 11.5 L (12.0-15.0) g/dL Hct 33.0 L (40.0-54.0) % MCV 97 (80-98) fL MCH 34 H (27-31) pg MCHC 35 (32-36) % Plt Count 40 L (150-400) K/uL Add Manual Diff Yes Neutrophils % (Manual) 81 H (36-66) % Band Neutrophils % 2 L (5-11) % Lymphocytes % (Manual) 5 L (24-44) % Monocytes % (Manual) 12 H (2-6) % PT 17.3 H (9.5-12.0) sec INR 1.61 H (0.80-1.20) Sodium 136 L (140-148) mmol/L Potassium 5.1 (3.6-5.2) mmol/L Chloride 101 (100-108) mmol/L Carbon Dioxide 29 (21-32) mmol/L Anion Gap 11.1 (5.0-14.0) mmol/L BUN 58 H (7-18) mg/dL Creatinine 2.4 H (0.8-1.3) mg/dL Est Cr Clr Drug Dosing 32.98 mL/min Estimated GFR (MDRD) 27 L (>60) Glucose 112 H (74-106) mg/dL Calcium 8.0 L (8.5-10.1) mg/dL Magnesium 2.0 (1.8-2.4) mg/dL Total Bilirubin 3.1 H (0.2-1.0) mg/dL AST 140 H (15-37) U/L ALT 89 H (12-78) U/L Alkaline Phosphatase 192 H (46-116) U/L Total Protein 4.9 L (6.4-8.2) g/dL Albumin 1.5 L (3.4-5.0) g/dL Globulin 3.4 (2.3-3.5) g/dL Albumin/Globulin Ratio 0.4 L (1.2-2.2) Med Orders - Current: Current Medications Acetaminophen (Tylenol) 650 mg PO Q4H PRN PRN Reason: Pain (Mild 1-3)/fever Last Admin: 11/08/16 21:02 Dose: 650 mg Albuterol (Ventolin Hfa) 0 gm INH Q4H PRN PRN Reason: sob Albuterol (Proventil Neb Soln) 2.5 mg NEB Q4H PRN PRN Reason: Shortness Of Breath/wheezing Last Admin: 11/07/16 21:53 Dose: 2.5 mg Albuterol/Ipratropium (Duoneb 3.0-0.5 Mg/3 Ml) 3 ml INH QIDRT [facility] Last Admin: 11/09/16 14:18 Dose: 3 ml Cholecalciferol (Vitamin D3) 1,000 units PO DAILY [facility] Last Admin: 11/09/16 09:25 Dose: 1,000 units Doxycycline Hyclate (Vibramycin) 100 mg PO Q12H [facility] Last Admin: 11/09/16 09:26 Dose: 100 mg Fluticasone Propionate (Flonase) 0 gm RUSSELL DAILY [facility] Last Admin: 11/09/16 09:25 Dose: 2 spray Folic Acid (Folic Acid) 1 mg PO DAILY [facility] Last Admin: 11/09/16 09:26 Dose: 1 mg Guaifenesin (Mucinex) 600 mg PO BID [facility] Last Admin: 11/09/16 09:26 Dose: 600 mg Guaifenesin/Codeine Phosphate (Robitussin Ac) 10 ml PO Q4H PRN PRN Reason: Cough Last Admin: 11/01/16 22:00 Dose: 10 ml Sodium Chloride (Normal Saline) 1,000 mls @ 125 mls/hr IV ASDIRECTED [facility] Last Admin: 11/09/16 10:49 Dose: 125 mls/hr Lactulose (Chronulac) 10 gm PO BID [facility] Last Admin: 11/09/16 09:25 Dose: 10 gm Lorazepam (Ativan) 0.5 - 1 mg IVPUSH Q2H PRN PRN Reason: Anxiety Last Admin: 11/03/16 02:23 Dose: 1 mg Magnesium Oxide (Magnesium Oxide) 400 mg PO BID [facility] Last Admin: 11/09/16 09:25 Dose: 400 mg Multivitamins/Minerals (Thera M Plus) 1 tab PO DAILY [facility] Last Admin: 11/09/16 09:25 Dose: 1 tab Ondansetron HCl (Zofran Odt) 4 mg PO Q6H PRN PRN Reason: Nausea able to take PO Pantoprazole Sodium (Protonix) 40 mg PO ACBREAKFAST [facility] Last Admin: 11/09/16 07:30 Dose: 40 mg Prednisone (Prednisone) 10 mg PO DAILY@0800 [facility] Last Admin: 11/09/16 09:26 Dose: 10 mg Sodium Chloride (Saline Flush) 10 ml FLUSH ASDIRECTED PRN PRN Reason: Keep Vein Open Spironolactone (Aldactone) 50 mg PO BIDDIURETIC [facility] Last Admin: 11/08/16 09:45 Dose: Not Given Tamsulosin HCl (Flomax) 0.4 mg PO PCBREAKFAST [facility] Last Admin: 11/09/16 09:26 Dose: 0.4 mg Thiamine HCl (Vitamin B-1) 100 mg PO DAILY [facility] Last Admin: 11/09/16 09:25 Dose: 100 mg Discontinued Medications Albuterol/Ipratropium (Duoneb 3.0-0.5 Mg/3 Ml) 3 ml NEB ONETIME ONE Stop: 10/30/16 15:58 Last Admin: 10/30/16 16:12 Dose: 3 ml Amoxicillin/Clavulanate Potassium (Augmentin 875 Mg/125 Mg) 1 tab PO BID [facility] Last Admin: 11/03/16 08:34 Dose: 1 tab Fentanyl (Sublimaze) Confirm Administered Dose 100 mcg .ROUTE .STK-MED ONE Stop: 11/01/16 10:45 Fluticasone Propionate (Flonase) 0 gm RUSSELL DAILY [facility] Furosemide (Lasix) 40 mg PO BIDDIURETIC [facility] Last Admin: 11/02/16 09:27 Dose: 40 mg Furosemide (Lasix) 80 mg PO BIDDIURETIC [facility] Last Admin: 11/04/16 07:19 Dose: 80 mg Furosemide (Lasix) 40 mg IVPUSH Q8H [facility] Last Admin: 11/05/16 08:10 Dose: 40 mg Furosemide (Lasix) 40 mg IVPUSH Q12H [facility] Furosemide (Lasix) 40 mg IVPUSH Q12H [facility] Last Admin: 11/06/16 07:38 Dose: 40 mg Furosemide (Lasix) 40 mg IVPUSH ONETIME [facility] Stop: 11/07/16 09:01 Last Admin: 11/07/16 09:22 Dose: 40 mg Sodium Chloride (Normal Saline) 1,000 mls @ 125 mls/hr IV ASDIRECTED [facility] Stop: 10/31/16 02:08 Sodium Chloride (Normal Saline) 85 mls @ 3.5 mls/sec IV ASDIRECTED [facility] Last Admin: 10/31/16 08:02 Dose: 3.5 mls/sec Magnesium Sulfate 2 gm/ Premix 50 mls @ 25 mls/hr IV Q6H [facility] Stop: 10/31/16 14:00 Last Admin: 10/31/16 10:43 Dose: 25 mls/hr Magnesium Sulfate 2 gm/ Sodium (Chloride) 54 mls @ 27 mls/hr IV Q6H [facility] Stop: 11/01/16 06:59 Last Admin: 11/01/16 05:00 Dose: 27 mls/hr Ceftriaxone Sodium 2 gm/ (Sodium Chloride) 50 mls @ 100 mls/hr IV Q24H [facility] Last Admin: 11/03/16 11:57 Dose: 100 mls/hr Ceftriaxone Sodium 2 gm/ (Sodium Chloride) 50 mls @ 100 mls/hr IV Q24H [facility] Doxycycline Hyclate 100 mg/ (Sodium Chloride) 100 mls @ 100 mls/hr IV Q12H [facility] Last Admin: 11/07/16 09:47 Dose: 100 mls/hr Magnesium Sulfate 2 gm/ Premix 50 mls @ 25 mls/hr IV ONETIME ONE Stop: 11/06/16 11:59 Last Admin: 11/06/16 11:54 Dose: 25 mls/hr Iopamidol (Isovue-300 (61%)) 150 ml IV . DIRECTED PRN PRN Reason: RADIOLOGY EXAM Stop: 11/01/16 07:12 Last Admin: 10/31/16 08:02 Dose: 150 ml Levofloxacin (Levaquin) 250 mg PO Q24H [facility] Last Admin: 11/03/16 11:11 Dose: 250 mg Levofloxacin (Levaquin) 500 mg PO Q24H [facility] Last Admin: 11/05/16 11:35 Dose: 500 mg Lidocaine (Lidocaine 4% Top Soln) Confirm Administered Dose 4 ml .ROUTE .STK- MED ONE Stop: 11/01/16 14:32 Lidocaine HCl (Xylocaine 2% Jelly) 10 ml MUCMEM ONETIME ONE Stop: 10/30/16 23:34 Last Admin: 10/30/16 23:49 Dose: 10 ml Lidocaine HCl (Xylocaine 4% Top Soln) Confirm Administered Dose 50 ml .ROUTE .STK-MED ONE Stop: 11/01/16 08:36 Last Admin: 11/01/16 16:35 Dose: 50 ml Lidocaine HCl (Xylocaine 2% Jelly) 10 ml MUCMEM ONETIME ONE Stop: 11/07/16 00:49 Last Admin: 11/07/16 01:04 Dose: Not Given Lidocaine HCl (Xylocaine 2% Jelly) Confirm Administered Dose 10 ml .ROUTE .STK- MED ONE Stop: 11/07/16 00:55 Last Admin: 11/07/16 01:04 Dose: 10 ml Methylprednisolone Sodium Succinate (Solu-Medrol) 62.5 mg IVPUSH Q8H [facility] Stop: 10/31/16 02:01 Last Admin: 10/31/16 02:12 Dose: 62.5 mg Midazolam HCl (Versed 1 Mg/Ml) Confirm Administered Dose 2 mg .ROUTE .STK-MED ONE Stop: 11/01/16 10:45 Prednisone (Prednisone) 40 mg PO DAILY [facility] Last Admin: 11/02/16 09:28 Dose: 40 mg Prednisone (Prednisone) 20 mg PO DAILY [facility] Last Admin: 11/07/16 09:25 Dose: 20 mg Prednisone (Prednisone) 10 mg PO DAILY [facility] Last Admin: 11/07/16 13:52 Dose: 10 mg Propofol (Diprivan 20 Ml) Confirm Administered Dose 200 mg .ROUTE .STK-MED ONE Stop: 11/01/16 10:45 Sodium Chloride (Saline Flush) 10 ml FLUSH ONETIME ONE Stop: 10/31/16 07:12 Last Admin: 10/31/16 08:01 Dose: 10 ml Spironolactone (Aldactone) 25 mg PO BIDDIURETIC [facility] Last Admin: 11/02/16 09:27 Dose: 25 mg - Exam General: alert, oriented, cooperative, mild distress Lungs: Clear to auscultation, Normal respiratory effort Cardiovascular: regular rate, regular rhythm, no murmurs Abdomen: bowel sounds present, soft, no tenderness, no distension Extremities: edema Skin: warm, dry, intact - Problem List Review Problem List Initiated/Reviewed/Updated: Yes - My Orders Last 24 Hours: My Active Orders 11/08/16 15:00 Tamsulosin [Flomax] 0.4 mg PO PCBREAKFAST 11/09/16 08:30 Sodium Chloride 0.9% [Normal Saline] 1,000 ml IV ASDIRECTED 11/10/16 05:00 CBC WITH AUTO DIFF [HEME] Timed COMPREHENSIVE METABOLIC PN,CMP [CHEM] Timed - Plan Plan:: Assessment and plan - Right upper lobe pneumonia with acute exacerbation of asthma/COPD - CT scan revealed pneumonia that was not appreciated on chest x-ray. bronchoscopy unremarkable. Cultures growing staph epidermidis resistant to fluoroquinolones. He is done well over the past few days is concerning his respiratory status with less shortness of breath and cough Culture also growing yeast which is likely a contaminant -Continue doxycycline -Continue prednisone with taper (decreased to 20 mg on 11/03) -Scheduled and as needed nebulizers -Supplement oxygen if needed Delirium -resolved -Lactulose twice daily Large left pleural effusion - I suspect this is a complication of his advanced liver disease. respiratory status improved with arthrodesis, no evidence for heart failure on echocardiogram. -followup cultures Hematuria -Discontinue Ojeda catheter Cirrhosis - alcoholic cirrhosis is suspected and workup for paraproteinemia has been unremarkable. Complicated by anasarca, coagulopathy and portal hypertension based on CT scan. he also has impressive thrombocytopenia which hopefully is starting to trend in the right direction. -Continue diuretics including IV furosemide and oral spironolactone -Saline lock IV Anasarca - probably related to liver disease. Using mechanical methods including ULISES wraps of the legs. Echocardiogram completed and did not show evidence for congestive heart failure. Further elevation in creatinine over the past 24 hours and, will need to hold diuretics until renal function improves. -Holter Furosemide and spironolactone -1200 mL daily fluid restriction -2 g sodium diet -ULISES wraps to both legs from foot to thigh Acute kidney injury - creatinine elevated from baseline with recent diuresis, creatinine has increased over the past 24 hours despite holding diuretics -Normal saline 125 mL per hour -Hold diuretics -Repeat labs in the morning Urinary retention -Flomax 0.4 mg by mouth daily -Reattempt to remove Ojeda catheter Maintenance issues - - DVT prophylaxis - mechanical with thrombocytopenia - GI prophylaxis - proton pump inhibitor - Nutrition - low sodium diet - Ojeda catheter - Replaced because of inability to urinate Disposition - anticipate discharge to [facility] after he has completed his hospital stay
[2016-11-09] MEDS: Spironolactone 25 MG Tab PO SCH (15:19)
[2016-11-10] MEDS: Sodium Chloride 0.9% 1,000 ML IV SCH (05:04)
[2016-11-10] MEDS: Albuterol/Ipratropium 3.0-0.5 MG/3 ML Neb Soln INH SCH ×4 (07:11→20:40)
[2016-11-10] MEDS: Pantoprazole 40 MG Tab.CR PO SCH (09:32)
[2016-11-10] MEDS: Tamsulosin 0.4 MG Cap.ER PO SCH (09:33)
[2016-11-10] MEDS: Lactulose Soln 10 GM/15 ML 15 ML UD Cup PO SCH ×2 (09:33→20:36)
[2016-11-10] MEDS: predniSONE 10 MG Tab PO SCH (09:33)
[2016-11-10] MEDS: Fluticasone Propionate Nasal Spray 16 GM Bottle NAS SCH (09:33)
[2016-11-10] MEDS: Folic Acid 1 MG Tab PO SCH (09:33)
[2016-11-10] MEDS: Spironolactone 25 MG Tab PO SCH ×2 (09:33→14:43)
[2016-11-10] MEDS: guaiFENesin 600 MG Tab.ER PO SCH ×2 (09:33→20:37)
[2016-11-10] MEDS: Magnesium Oxide 400 MG Tab PO SCH ×2 (09:33→20:36)
[2016-11-10] MEDS: Multivitamins with Iron/Calcium/Folic Acid/Minerals Tab PO SCH (09:34)
[2016-11-10] MEDS: Thiamine 100 MG Tab PO SCH (09:34)
[2016-11-10] MEDS: Cholecalciferol (Vitamin D3) 1,000 Unit Tab PO SCH (09:34)
[2016-11-10] MEDS: Doxycycline 100 MG Cap PO SCH ×2 (09:34→20:36)
[2016-11-10] MEDS ORDERED: Zolpidem 5 MG Tab PO PRN (12:22)
--- NOTE | 2016-11-10 12:26 | PCM.PN ---
- General Info Date of Service: 11/10/16 Functional Status: Reports: tolerating diet - Review of Systems General: Reports: weakness. Denies: fever, chills Pulmonary: Reports: no symptoms Cardiovascular: Reports: no symptoms Gastrointestinal: Reports: No symptoms Systems Review Comment:: This patient remains very weak, but otherwise feels well. Vital signs have been stable and he has remained afebrile. Renal function again slightly worse today despite hydration and holding diuretics. - Patient Data Vitals - most recent: Last Vital Signs Temp 96.1 F 11/10/16 11:10 Pulse 89 11/10/16 11:10 Resp 18 11/10/16 11:10 BP 119/67 11/10/16 11:10 Pulse Ox 94 L 11/10/16 11:10 Weight - most recent: 269 lb 11.2 oz I&O - last 24 hours: Intake & Output 11/09/16 11/10/16 11/10/16 22:59 06:59 14:59 Intake Total 1210 1706 Output Total 325 550 Balance 885 1156 Lab Results last 24 hrs: Laboratory Results - last 24 hr 11/10/16 11/10/16 Range/Units 05:55 05:55 WBC 12.5 H (4.5-11.0) K/uL RBC 3.52 L (4.30-5.90) M/uL Hgb 11.9 L (12.0-15.0) g/dL Hct 34.2 L (40.0-54.0) % MCV 97 (80-98) fL MCH 34 H (27-31) pg MCHC 35 (32-36) % Plt Count 39 L (150-400) K/uL Neut % (Auto) 85 H (36-66) % Lymph % (Auto) 5 L (24-44) % [place] % (Auto) 10 H (2-6) % Eos % (Auto) 1 L (2-4) % Baso % (Auto) 0 (0-1) % Sodium 136 L (140-148) mmol/L Potassium 5.3 H (3.6-5.2) mmol/L Chloride 101 (100-108) mmol/L Carbon Dioxide 29 (21-32) mmol/L Anion Gap 11.3 (5.0-14.0) mmol/L BUN 63 H (7-18) mg/dL Creatinine 2.3 H (0.8-1.3) mg/dL Est Cr Clr Drug Dosing 34.42 mL/min Estimated GFR (MDRD) 29 L (>60) Glucose 112 H (74-106) mg/dL Calcium 8.0 L (8.5-10.1) mg/dL Total Bilirubin 3.2 H (0.2-1.0) mg/dL AST 143 H (15-37) U/L ALT 106 H (12-78) U/L Alkaline Phosphatase 228 H (46-116) U/L Total Protein 5.2 L (6.4-8.2) g/dL Albumin 1.7 L (3.4-5.0) g/dL Globulin 3.5 (2.3-3.5) g/dL Albumin/Globulin Ratio 0.5 L (1.2-2.2) Med Orders - Current: Current Medications Acetaminophen (Tylenol) 650 mg PO Q4H PRN PRN Reason: Pain (Mild 1-3)/fever Last Admin: 11/08/16 21:02 Dose: 650 mg Albuterol (Ventolin Hfa) 0 gm INH Q4H PRN PRN Reason: sob Albuterol (Proventil Neb Soln) 2.5 mg NEB Q4H PRN PRN Reason: Shortness Of Breath/wheezing Last Admin: 11/07/16 21:53 Dose: 2.5 mg Albuterol/Ipratropium (Duoneb 3.0-0.5 Mg/3 Ml) 3 ml INH QIDRT [facility] Last Admin: 11/10/16 10:48 Dose: 3 ml Cholecalciferol (Vitamin D3) 1,000 units PO DAILY [facility] Last Admin: 11/10/16 09:34 Dose: 1,000 units Doxycycline Hyclate (Vibramycin) 100 mg PO Q12H [facility] Last Admin: 11/10/16 09:34 Dose: 100 mg Fluticasone Propionate (Flonase) 0 gm RUSSELL DAILY [facility] Last Admin: 11/10/16 09:33 Dose: 2 spray Folic Acid (Folic Acid) 1 mg PO DAILY [facility] Last Admin: 11/10/16 09:33 Dose: 1 mg Guaifenesin (Mucinex) 600 mg PO BID [facility] Last Admin: 11/10/16 09:33 Dose: 600 mg Guaifenesin/Codeine Phosphate (Robitussin Ac) 10 ml PO Q4H PRN PRN Reason: Cough Last Admin: 11/01/16 22:00 Dose: 10 ml Sodium Chloride (Normal Saline) 1,000 mls @ 50 mls/hr IV ASDIRECTED [facility] Lactulose (Chronulac) 10 gm PO BID [facility] Last Admin: 11/10/16 09:33 Dose: 10 gm Lorazepam (Ativan) 0.5 - 1 mg IVPUSH Q2H PRN PRN Reason: Anxiety Last Admin: 11/03/16 02:23 Dose: 1 mg Magnesium Oxide (Magnesium Oxide) 400 mg PO BID [facility] Last Admin: 11/10/16 09:33 Dose: 400 mg Multivitamins/Minerals (Thera M Plus) 1 tab PO DAILY [facility] Last Admin: 11/10/16 09:34 Dose: 1 tab Ondansetron HCl (Zofran Odt) 4 mg PO Q6H PRN PRN Reason: Nausea able to take PO Pantoprazole Sodium (Protonix) 40 mg PO ACBREAKFAST [facility] Last Admin: 11/10/16 09:32 Dose: 40 mg Prednisone (Prednisone) 10 mg PO DAILY@0800 [facility] Last Admin: 11/10/16 09:33 Dose: 10 mg Sodium Chloride (Saline Flush) 10 ml FLUSH ASDIRECTED PRN PRN Reason: Keep Vein Open Spironolactone (Aldactone) 50 mg PO BIDDIURETIC [facility] Last Admin: 11/10/16 09:33 Dose: 50 mg Tamsulosin HCl (Flomax) 0.4 mg PO PCBREAKFAST [facility] Last Admin: 11/10/16 09:33 Dose: 0.4 mg Thiamine HCl (Vitamin B-1) 100 mg PO DAILY [facility] Last Admin: 11/10/16 09:34 Dose: 100 mg Zolpidem Tartrate (Ambien) 5 mg PO BEDTIME PRN PRN Reason: Insomnia Discontinued Medications Albuterol/Ipratropium (Duoneb 3.0-0.5 Mg/3 Ml) 3 ml NEB ONETIME ONE Stop: 10/30/16 15:58 Last Admin: 10/30/16 16:12 Dose: 3 ml Amoxicillin/Clavulanate Potassium (Augmentin 875 Mg/125 Mg) 1 tab PO BID [facility] Last Admin: 11/03/16 08:34 Dose: 1 tab Fentanyl (Sublimaze) Confirm Administered Dose 100 mcg .ROUTE .STK-MED ONE Stop: 11/01/16 10:45 Fluticasone Propionate (Flonase) 0 gm RUSSELL DAILY [facility] Furosemide (Lasix) 40 mg PO BIDDIURETIC [facility] Last Admin: 11/02/16 09:27 Dose: 40 mg Furosemide (Lasix) 80 mg PO BIDDIURETIC [facility] Last Admin: 11/04/16 07:19 Dose: 80 mg Furosemide (Lasix) 40 mg IVPUSH Q8H [facility] Last Admin: 11/05/16 08:10 Dose: 40 mg Furosemide (Lasix) 40 mg IVPUSH Q12H [facility] Furosemide (Lasix) 40 mg IVPUSH Q12H [facility] Last Admin: 11/06/16 07:38 Dose: 40 mg Furosemide (Lasix) 40 mg IVPUSH ONETIME ONE Stop: 11/07/16 09:01 Last Admin: 11/07/16 09:22 Dose: 40 mg Sodium Chloride (Normal Saline) 1,000 mls @ 125 mls/hr IV ASDIRECTED [facility] Stop: 10/31/16 02:08 Sodium Chloride (Normal Saline) 85 mls @ 3.5 mls/sec IV ASDIRECTED [facility] Last Admin: 10/31/16 08:02 Dose: 3.5 mls/sec Magnesium Sulfate 2 gm/ Premix 50 mls @ 25 mls/hr IV Q6H [facility] Stop: 10/31/16 14:00 Last Admin: 10/31/16 10:43 Dose: 25 mls/hr Magnesium Sulfate 2 gm/ Sodium (Chloride) 54 mls @ 27 mls/hr IV Q6H [facility] Stop: 11/01/16 06:59 Last Admin: 11/01/16 05:00 Dose: 27 mls/hr Ceftriaxone Sodium 2 gm/ (Sodium Chloride) 50 mls @ 100 mls/hr IV Q24H [facility] Last Admin: 11/03/16 11:57 Dose: 100 mls/hr Ceftriaxone Sodium 2 gm/ (Sodium Chloride) 50 mls @ 100 mls/hr IV Q24H [facility] Doxycycline Hyclate 100 mg/ (Sodium Chloride) 100 mls @ 100 mls/hr IV Q12H [facility] Last Admin: 11/07/16 09:47 Dose: 100 mls/hr Magnesium Sulfate 2 gm/ Premix 50 mls @ 25 mls/hr IV ONETIME ONE Stop: 11/06/16 11:59 Last Admin: 11/06/16 11:54 Dose: 25 mls/hr Sodium Chloride (Normal Saline) 1,000 mls @ 125 mls/hr IV ASDIRECTED [facility] Last Admin: 11/10/16 05:04 Dose: 125 mls/hr Iopamidol (Isovue-300 (61%)) 150 ml IV . DIRECTED PRN PRN Reason: RADIOLOGY EXAM Stop: 11/01/16 07:12 Last Admin: 10/31/16 08:02 Dose: 150 ml Levofloxacin (Levaquin) 250 mg PO Q24H [facility] Last Admin: 11/03/16 11:11 Dose: 250 mg Levofloxacin (Levaquin) 500 mg PO Q24H [facility] Last Admin: 11/05/16 11:35 Dose: 500 mg Lidocaine (Lidocaine 4% Top Soln) Confirm Administered Dose 4 ml .ROUTE .STK- MED ONE Stop: 11/01/16 14:32 Lidocaine HCl (Xylocaine 2% Jelly) 10 ml MUCMEM ONETIME ONE Stop: 10/30/16 23:34 Last Admin: 10/30/16 23:49 Dose: 10 ml Lidocaine HCl (Xylocaine 4% Top Soln) Confirm Administered Dose 50 ml .ROUTE .STK-MED ONE Stop: 11/01/16 08:36 Last Admin: 11/01/16 16:35 Dose: 50 ml Lidocaine HCl (Xylocaine 2% Jelly) 10 ml MUCMEM ONETIME ONE Stop: 11/07/16 00:49 Last Admin: 11/07/16 01:04 Dose: Not Given Lidocaine HCl (Xylocaine 2% Jelly) Confirm Administered Dose 10 ml .ROUTE .STK- MED ONE Stop: 11/07/16 00:55 Last Admin: 11/07/16 01:04 Dose: 10 ml Methylprednisolone Sodium Succinate (Solu-Medrol) 62.5 mg IVPUSH Q8H [facility] Stop: 10/31/16 02:01 Last Admin: 10/31/16 02:12 Dose: 62.5 mg Midazolam HCl (Versed 1 Mg/Ml) Confirm Administered Dose 2 mg .ROUTE .STK-MED ONE Stop: 11/01/16 10:45 Prednisone (Prednisone) 40 mg PO DAILY [facility] Last Admin: 11/02/16 09:28 Dose: 40 mg Prednisone (Prednisone) 20 mg PO DAILY [facility] Last Admin: 11/07/16 09:25 Dose: 20 mg Prednisone (Prednisone) 10 mg PO DAILY [facility] Last Admin: 11/07/16 13:52 Dose: 10 mg Propofol (Diprivan 20 Ml) Confirm Administered Dose 200 mg .ROUTE .STK-MED ONE Stop: 11/01/16 10:45 Sodium Chloride (Saline Flush) 10 ml FLUSH ONETIME ONE Stop: 10/31/16 07:12 Last Admin: 10/31/16 08:01 Dose: 10 ml Spironolactone (Aldactone) 25 mg PO BIDDIURETIC [facility] Last Admin: 11/02/16 09:27 Dose: 25 mg - Exam Quality Assessment: urine catheter, DVT prophylaxis General: alert, oriented, cooperative, no acute distress Lungs: Clear to auscultation, Normal respiratory effort Cardiovascular: regular rate, regular rhythm, no murmurs Abdomen: bowel sounds present, soft, no tenderness, no distension Extremities: edema Skin: warm, dry, intact - Problem List Review Problem List Initiated/Reviewed/Updated: Yes - My Orders Last 24 Hours: My Active Orders 11/10/16 12:22 Remove Ojeda Catheter [Urinary Catheter Removal] [RC] Per Unit Routine Zolpidem [Ambien] 5 mg PO BEDTIME PRN 11/10/16 12:30 Sodium Chloride 0.9% @ 50 MLS/HR(1000ml) Sodium Chloride 0.9% [Normal Saline] 1 ,000 ml IV ASDIRECTED 11/11/16 05:00 CBC WITH AUTO DIFF [HEME] Timed COMPREHENSIVE METABOLIC PN,CMP [CHEM] Timed - Plan Plan:: Assessment and plan - Right upper lobe pneumonia with acute exacerbation of asthma/COPD - CT scan revealed pneumonia that was not appreciated on chest x-ray. bronchoscopy unremarkable. Cultures growing staph epidermidis resistant to fluoroquinolones. He is done well over the past few days is concerning his respiratory status with less shortness of breath and cough Culture also growing yeast which is likely a contaminant -Continue doxycycline -Continue prednisone with taper -Scheduled and as needed nebulizers -Supplement oxygen if needed Delirium -resolved -Lactulose twice daily Large left pleural effusion - I suspect this is a complication of his advanced liver disease. respiratory status improved with arthrodesis, no evidence for heart failure on echocardiogram. -followup cultures Hematuria -Discontinue Ojeda catheter Cirrhosis - alcoholic cirrhosis is suspected and workup for paraproteinemia has been unremarkable. Complicated by anasarca, coagulopathy and portal hypertension based on CT scan. he also has impressive thrombocytopenia which hopefully is starting to trend in the right direction. -Continue diuretics including IV furosemide and oral spironolactone -Saline lock IV Anasarca - probably related to liver disease. Using mechanical methods including ULISES wraps of the legs. Echocardiogram completed and did not show evidence for congestive heart failure. Renal function begins slightly despite holding diuretics -Hold Furosemide and spironolactone -1200 mL daily fluid restriction -2 g sodium diet -ULISES wraps to both legs from foot to thigh Acute kidney injury - creatinine elevated from baseline with recent diuresis, creatinine has increased over the past 24 hours despite holding diuretics -Normal saline 50 ml per hour -Hold diuretics -Repeat labs in the morning Urinary retention -Flomax 0.4 mg by mouth daily -Reattempt to remove Ojeda catheter today Maintenance issues - - DVT prophylaxis - mechanical with thrombocytopenia - GI prophylaxis - proton pump inhibitor - Nutrition - low sodium diet - Ojeda catheter - Replaced because of inability to urinate Disposition - anticipate discharge to detention after he has completed his hospital stay
[2016-11-10] MEDS ORDERED: Sodium Chloride 0.9% 1,000 ML IV SCH (12:30)
[2016-11-11] MEDS: Albuterol/Ipratropium 3.0-0.5 MG/3 ML Neb Soln INH SCH ×4 (07:10→20:19)
[2016-11-11] MEDS: Spironolactone 25 MG Tab PO SCH ×2 (08:32→13:25)
[2016-11-11] MEDS: Pantoprazole 40 MG Tab.CR PO SCH (08:33)
[2016-11-11] MEDS: Doxycycline 100 MG Cap PO SCH ×2 (08:33→20:09)
[2016-11-11] MEDS: Multivitamins with Iron/Calcium/Folic Acid/Minerals Tab PO SCH (10:07)
[2016-11-11] MEDS: predniSONE 10 MG Tab PO SCH (10:07)
[2016-11-11] MEDS: Tamsulosin 0.4 MG Cap.ER PO SCH (10:07)
[2016-11-11] MEDS: Folic Acid 1 MG Tab PO SCH (10:07)
[2016-11-11] MEDS: guaiFENesin 600 MG Tab.ER PO SCH ×2 (10:08→20:09)
[2016-11-11] MEDS: Magnesium Oxide 400 MG Tab PO SCH ×2 (10:08→20:09)
[2016-11-11] MEDS: Cholecalciferol (Vitamin D3) 1,000 Unit Tab PO SCH (10:08)
[2016-11-11] MEDS: Fluticasone Propionate Nasal Spray 16 GM Bottle NAS SCH (10:08)
[2016-11-11] MEDS: Thiamine 100 MG Tab PO SCH (10:08)
[2016-11-11] MEDS: Lactulose Soln 10 GM/15 ML 15 ML UD Cup PO SCH ×2 (10:09→20:09)
--- NOTE | 2016-11-11 13:32 | PCM.PN ---
- General Info Date of Service: 11/11/16 Functional Status: Reports: pain controlled, ambulating, urinating - Review of Systems General: Reports: weakness. Denies: fever, chills Pulmonary: Reports: no symptoms Cardiovascular: Reports: edema. Denies: chest pain, palpitations, dyspnea on exertion Gastrointestinal: Reports: No symptoms Systems Review Comment:: This patient has done well over the past 24 hours, renal function his family showed some evidence of improvement. He is been able to walk short distances and does seem to be regaining some strength. Vital signs have been stable and he has remained afebrile. - Patient Data Vitals - most recent: Last Vital Signs Temp 95.6 F 11/11/16 10:58 Pulse 98 11/11/16 06:00 Resp 18 11/11/16 10:58 BP 121/95 H 11/11/16 06:00 Pulse Ox 95 11/11/16 06:00 Weight - most recent: 272 lb 6.4 oz I&O - last 24 hours: Intake & Output 11/10/16 11/11/16 11/11/16 22:59 06:59 14:59 Intake Total 1596 856 588 Output Total 400 Balance 1596 856 188 Lab Results last 24 hrs: Laboratory Results - last 24 hr 11/11/16 11/11/16 Range/Units 05:55 05:55 WBC 13.5 H (4.5-11.0) K/uL RBC 3.44 L (4.30-5.90) M/uL Hgb 11.6 L (12.0-15.0) g/dL Hct 33.1 L (40.0-54.0) % MCV 96 (80-98) fL MCH 34 H (27-31) pg MCHC 35 (32-36) % Plt Count 37 L (150-400) K/uL Neut % (Auto) 88 H (36-66) % Lymph % (Auto) 4 L (24-44) % [place] % (Auto) 8 H (2-6) % Eos % (Auto) 0 L (2-4) % Baso % (Auto) 0 (0-1) % Sodium 134 L (140-148) mmol/L Potassium 5.2 (3.6-5.2) mmol/L Chloride 100 (100-108) mmol/L Carbon Dioxide 27 (21-32) mmol/L Anion Gap 12.2 (5.0-14.0) mmol/L BUN 63 H (7-18) mg/dL Creatinine 2.1 H (0.8-1.3) mg/dL Est Cr Clr Drug Dosing 37.69 mL/min Estimated GFR (MDRD) 32 L (>60) Glucose 119 H (74-106) mg/dL Calcium 8.0 L (8.5-10.1) mg/dL Total Bilirubin 3.8 H (0.2-1.0) mg/dL AST 140 H (15-37) U/L ALT 118 H (12-78) U/L Alkaline Phosphatase 242 H (46-116) U/L Total Protein 5.2 L (6.4-8.2) g/dL Albumin 1.7 L (3.4-5.0) g/dL Globulin 3.5 (2.3-3.5) g/dL Albumin/Globulin Ratio 0.5 L (1.2-2.2) Med Orders - Current: Current Medications Acetaminophen (Tylenol) 650 mg PO Q4H PRN PRN Reason: Pain (Mild 1-3)/fever Last Admin: 11/08/16 21:02 Dose: 650 mg Albuterol (Ventolin Hfa) 0 gm INH Q4H PRN PRN Reason: sob Albuterol (Proventil Neb Soln) 2.5 mg NEB Q4H PRN PRN Reason: Shortness Of Breath/wheezing Last Admin: 11/07/16 21:53 Dose: 2.5 mg Albuterol/Ipratropium (Duoneb 3.0-0.5 Mg/3 Ml) 3 ml INH QIDRT [facility] Last Admin: 11/11/16 11:06 Dose: 3 ml Cholecalciferol (Vitamin D3) 1,000 units PO DAILY [facility] Last Admin: 11/11/16 10:08 Dose: 1,000 units Doxycycline Hyclate (Vibramycin) 100 mg PO BID@0800,2000 [facility] Last Admin: 11/11/16 08:33 Dose: 100 mg Fluticasone Propionate (Flonase) 0 gm RUSSELL DAILY [facility] Last Admin: 11/11/16 10:08 Dose: 2 spray Folic Acid (Folic Acid) 1 mg PO DAILY [facility] Last Admin: 11/11/16 10:07 Dose: 1 mg Furosemide (Lasix) 40 mg IVPUSH NOW ONE Stop: 11/11/16 13:27 Guaifenesin (Mucinex) 600 mg PO BID [facility] Last Admin: 11/11/16 10:08 Dose: 600 mg Guaifenesin/Codeine Phosphate (Robitussin Ac) 10 ml PO Q4H PRN PRN Reason: Cough Last Admin: 11/01/16 22:00 Dose: 10 ml Lactulose (Chronulac) 10 gm PO BID [facility] Last Admin: 11/11/16 10:09 Dose: 10 gm Lorazepam (Ativan) 0.5 - 1 mg IVPUSH Q2H PRN PRN Reason: Anxiety Last Admin: 11/03/16 02:23 Dose: 1 mg Magnesium Oxide (Magnesium Oxide) 400 mg PO BID [facility] Last Admin: 11/11/16 10:08 Dose: 400 mg Multivitamins/Minerals (Thera M Plus) 1 tab PO DAILY [facility] Last Admin: 11/11/16 10:07 Dose: 1 tab Ondansetron HCl (Zofran Odt) 4 mg PO Q6H PRN PRN Reason: Nausea able to take PO Pantoprazole Sodium (Protonix) 40 mg PO ACBREAKFAST [facility] Last Admin: 11/11/16 08:33 Dose: 40 mg Prednisone (Prednisone) 10 mg PO DAILY@0800 [facility] Last Admin: 11/11/16 10:07 Dose: 10 mg Sodium Chloride (Saline Flush) 10 ml FLUSH ASDIRECTED PRN PRN Reason: Keep Vein Open Spironolactone (Aldactone) 50 mg PO BIDDIURETIC [facility] Last Admin: 11/11/16 13:25 Dose: 50 mg Tamsulosin HCl (Flomax) 0.4 mg PO PCBREAKFAST [facility] Last Admin: 11/11/16 10:07 Dose: 0.4 mg Thiamine HCl (Vitamin B-1) 100 mg PO DAILY [facility] Last Admin: 11/11/16 10:08 Dose: 100 mg Zolpidem Tartrate (Ambien) 5 mg PO BEDTIME PRN PRN Reason: Insomnia Last Admin: 11/10/16 20:46 Dose: 5 mg Discontinued Medications Albuterol/Ipratropium (Duoneb 3.0-0.5 Mg/3 Ml) 3 ml NEB ONETIME ONE Stop: 10/30/16 15:58 Last Admin: 10/30/16 16:12 Dose: 3 ml Amoxicillin/Clavulanate Potassium (Augmentin 875 Mg/125 Mg) 1 tab PO BID [facility] Last Admin: 11/03/16 08:34 Dose: 1 tab Doxycycline Hyclate (Vibramycin) 100 mg PO Q12H [facility] Last Admin: 11/10/16 09:34 Dose: 100 mg Fentanyl (Sublimaze) Confirm Administered Dose 100 mcg .ROUTE .STK-MED ONE Stop: 11/01/16 10:45 Fluticasone Propionate (Flonase) 0 gm RUSSELL DAILY [facility] Furosemide (Lasix) 40 mg PO BIDDIURETIC [facility] Last Admin: 11/02/16 09:27 Dose: 40 mg Furosemide (Lasix) 80 mg PO BIDDIURETIC [facility] Last Admin: 11/04/16 07:19 Dose: 80 mg Furosemide (Lasix) 40 mg IVPUSH Q8H [facility] Last Admin: 11/05/16 08:10 Dose: 40 mg Furosemide (Lasix) 40 mg IVPUSH Q12H [facility] Furosemide (Lasix) 40 mg IVPUSH Q12H [facility] Last Admin: 11/06/16 07:38 Dose: 40 mg Furosemide (Lasix) 40 mg IVPUSH ONETIME ONE Stop: 11/07/16 09:01 Last Admin: 11/07/16 09:22 Dose: 40 mg Sodium Chloride (Normal Saline) 1,000 mls @ 125 mls/hr IV ASDIRECTED [facility] Stop: 10/31/16 02:08 Sodium Chloride (Normal Saline) 85 mls @ 3.5 mls/sec IV ASDIRECTED [facility] Last Admin: 10/31/16 08:02 Dose: 3.5 mls/sec Magnesium Sulfate 2 gm/ Premix 50 mls @ 25 mls/hr IV Q6H [facility] Stop: 10/31/16 14:00 Last Admin: 10/31/16 10:43 Dose: 25 mls/hr Magnesium Sulfate 2 gm/ Sodium (Chloride) 54 mls @ 27 mls/hr IV Q6H [facility] Stop: 11/01/16 06:59 Last Admin: 11/01/16 05:00 Dose: 27 mls/hr Ceftriaxone Sodium 2 gm/ (Sodium Chloride) 50 mls @ 100 mls/hr IV Q24H [facility] Last Admin: 11/03/16 11:57 Dose: 100 mls/hr Ceftriaxone Sodium 2 gm/ (Sodium Chloride) 50 mls @ 100 mls/hr IV Q24H [facility] Doxycycline Hyclate 100 mg/ (Sodium Chloride) 100 mls @ 100 mls/hr IV Q12H [facility] Last Admin: 11/07/16 09:47 Dose: 100 mls/hr Magnesium Sulfate 2 gm/ Premix 50 mls @ 25 mls/hr IV ONETIME ONE Stop: 11/06/16 11:59 Last Admin: 11/06/16 11:54 Dose: 25 mls/hr Sodium Chloride (Normal Saline) 1,000 mls @ 125 mls/hr IV ASDIRECTED [facility] Last Admin: 11/10/16 05:04 Dose: 125 mls/hr Sodium Chloride (Normal Saline) 1,000 mls @ 50 mls/hr IV ASDIRECTED [facility] Last Admin: 11/10/16 14:39 Dose: 50 mls/hr Iopamidol (Isovue-300 (61%)) 150 ml IV . DIRECTED PRN PRN Reason: RADIOLOGY EXAM Stop: 11/01/16 07:12 Last Admin: 10/31/16 08:02 Dose: 150 ml Levofloxacin (Levaquin) 250 mg PO Q24H [facility] Last Admin: 11/03/16 11:11 Dose: 250 mg Levofloxacin (Levaquin) 500 mg PO Q24H [facility] Last Admin: 11/05/16 11:35 Dose: 500 mg Lidocaine (Lidocaine 4% Top Soln) Confirm Administered Dose 4 ml .ROUTE .STK- MED ONE Stop: 11/01/16 14:32 Lidocaine HCl (Xylocaine 2% Jelly) 10 ml MUCMEM ONETIME ONE Stop: 10/30/16 23:34 Last Admin: 10/30/16 23:49 Dose: 10 ml Lidocaine HCl (Xylocaine 4% Top Soln) Confirm Administered Dose 50 ml .ROUTE .STK-MED ONE Stop: 11/01/16 08:36 Last Admin: 11/01/16 16:35 Dose: 50 ml Lidocaine HCl (Xylocaine 2% Jelly) 10 ml MUCMEM ONETIME ONE Stop: 11/07/16 00:49 Last Admin: 11/07/16 01:04 Dose: Not Given Lidocaine HCl (Xylocaine 2% Jelly) Confirm Administered Dose 10 ml .ROUTE .STK- MED ONE Stop: 11/07/16 00:55 Last Admin: 11/07/16 01:04 Dose: 10 ml Methylprednisolone Sodium Succinate (Solu-Medrol) 62.5 mg IVPUSH Q8H [facility] Stop: 10/31/16 02:01 Last Admin: 10/31/16 02:12 Dose: 62.5 mg Midazolam HCl (Versed 1 Mg/Ml) Confirm Administered Dose 2 mg .ROUTE .STK-MED ONE Stop: 11/01/16 10:45 Prednisone (Prednisone) 40 mg PO DAILY [facility] Last Admin: 11/02/16 09:28 Dose: 40 mg Prednisone (Prednisone) 20 mg PO DAILY [facility] Last Admin: 11/07/16 09:25 Dose: 20 mg Prednisone (Prednisone) 10 mg PO DAILY [facility] Last Admin: 11/07/16 13:52 Dose: 10 mg Propofol (Diprivan 20 Ml) Confirm Administered Dose 200 mg .ROUTE .STK-MED ONE Stop: 11/01/16 10:45 Sodium Chloride (Saline Flush) 10 ml FLUSH ONETIME ONE Stop: 10/31/16 07:12 Last Admin: 10/31/16 08:01 Dose: 10 ml Spironolactone (Aldactone) 25 mg PO BIDDIURETIC [facility] Last Admin: 11/02/16 09:27 Dose: 25 mg - Exam General: alert, oriented, cooperative, no acute distress Lungs: Normal respiratory effort, Decreased breath sounds, Rhonchi, Wheezing. No: Crackles, Rales, Rub, Stridor Cardiovascular: regular rate, regular rhythm, no murmurs Abdomen: bowel sounds present, soft, no tenderness, no distension Extremities: edema Skin: warm, dry, intact - Problem List Review Problem List Initiated/Reviewed/Updated: Yes - My Orders Last 24 Hours: My Active Orders 11/10/16 20:00 Doxycycline [Vibramycin] 100 mg PO BID@0800,199911/11/16 07:48 Convert IV to Saline Lock [OM.PC] Routine 11/11/16 13:26 Furosemide [Lasix] 40 mg IVPUSH NOW ONE 11/12/16 05:00 CBC WITH AUTO DIFF [HEME] Timed COMPREHENSIVE METABOLIC PN,CMP [CHEM] Timed - Plan Plan:: Assessment and plan - Anasarca - probably related to liver disease. Using mechanical methods including ULISES wraps of the legs. Echocardiogram completed to and did not show evidence for congestive heart failure. Renal function has improved over the past 24 hours -Furosemide 40 mg IV today -1200 mL daily fluid restriction -2 g sodium diet -ULISES wraps to both legs from foot to thigh Acute kidney injury - creatinine has finally improved today, now down to 2.1 -Saline lock IV -Furosemide as above -Repeat labs in the morning Right upper lobe pneumonia with acute exacerbation of asthma/COPD - CT scan revealed pneumonia that was not appreciated on chest x-ray. bronchoscopy unremarkable. Cultures growing staph epidermidis resistant to fluoroquinolones. He is done well over the past few days is concerning his respiratory status with less shortness of breath and cough Culture also growing yeast which is likely a contaminant -Continue doxycycline for a total course of 10 days, now on day 8 -Continue prednisone with taper -Scheduled and as needed nebulizers -Supplement oxygen if needed Delirium -resolved -Lactulose twice daily Large left pleural effusion - I suspect this is a complication of his advanced liver disease. respiratory status improved with arthrodesis, no evidence for heart failure on echocardiogram. -followup cultures Hematuria -Discontinue Ojeda catheter Cirrhosis - alcoholic cirrhosis is suspected and workup for paraproteinemia has been unremarkable. Complicated by anasarca, coagulopathy and portal hypertension based on CT scan. he also has impressive thrombocytopenia which hopefully is starting to trend in the right direction. -Continue diuretics including IV furosemide and oral spironolactone -Saline lock IV Urinary retention-Ojeda catheter has been removed and thus far has been able to urinate adequately -Flomax 0.4 mg by mouth daily Maintenance issues - - DVT prophylaxis - mechanical with thrombocytopenia - GI prophylaxis - proton pump inhibitor - Nutrition - low sodium diet - Ojeda catheter - no indication at the present time Disposition - anticipate discharge to retirement after he has completed his hospital stay
[2016-11-11] MEDS: Furosemide 40 MG/4 ML VIAL IVPUSH ONE ×2 (13:52→14:37)
[2016-11-11] MEDS ORDERED: Furosemide 40 MG Tab PO ONE (14:45)
[2016-11-12] MEDS: Albuterol/Ipratropium 3.0-0.5 MG/3 ML Neb Soln INH SCH ×4 (07:35→20:39)
[2016-11-12] MEDS: Folic Acid 1 MG Tab PO SCH (08:13)
[2016-11-12] MEDS: Cholecalciferol (Vitamin D3) 1,000 Unit Tab PO SCH (08:13)
[2016-11-12] MEDS: guaiFENesin 600 MG Tab.ER PO SCH ×2 (08:13→20:48)
[2016-11-12] MEDS: predniSONE 10 MG Tab PO SCH (08:13)
[2016-11-12] MEDS: Thiamine 100 MG Tab PO SCH (08:13)
[2016-11-12] MEDS: Tamsulosin 0.4 MG Cap.ER PO SCH (08:14)
[2016-11-12] MEDS: Multivitamins with Iron/Calcium/Folic Acid/Minerals Tab PO SCH (08:14)
[2016-11-12] MEDS: Magnesium Oxide 400 MG Tab PO SCH ×2 (08:14→20:48)
[2016-11-12] MEDS: Spironolactone 25 MG Tab PO SCH (08:15)
[2016-11-12] MEDS: Lactulose Soln 10 GM/15 ML 15 ML UD Cup PO SCH ×2 (08:15→20:48)
[2016-11-12] MEDS: Pantoprazole 40 MG Tab.CR PO SCH (08:15)
[2016-11-12] MEDS: Doxycycline 100 MG Cap PO SCH (08:15)
[2016-11-12] MEDS: Fluticasone Propionate Nasal Spray 16 GM Bottle NAS SCH (08:15)
--- NOTE | 2016-11-12 14:02 | PCM.PN ---
- General Info Date of Service: 11/12/16 Functional Status: Reports: pain controlled, tolerating diet - Review of Systems General: Reports: weakness. Denies: fever Pulmonary: Denies: shortness of breath Systems Review Comment:: no acute events overnight. Patient continues to report that he feels well and offers no concerns. He thinks that his breathing is doing fine. No complaints of abdominal pain or distention. He thinks his edema is getting better. He does admit that he is weak. AST ALT and bilirubin continued to rise. Creatinine level has been relatively stable. - Patient Data Vitals - most recent: Last Vital Signs Temp 36.4 C 11/12/16 11:00 Pulse 93 11/12/16 11:31 Resp 20 11/12/16 11:00 BP 115/76 11/12/16 11:00 Pulse Ox 95 11/12/16 11:31 Weight - most recent: 122.198 kg I&O - last 24 hours: Intake & Output 11/11/16 11/12/16 11/12/16 22:59 06:59 14:59 Intake Total 480 50 720 Balance 480 50 720 Lab Results last 24 hrs: Laboratory Results - last 24 hr 11/12/16 11/12/16 Range/Units 04:30 04:30 WBC 12.7 H (4.5-11.0) K/uL RBC 3.30 L (4.30-5.90) M/uL Hgb 11.3 L (12.0-15.0) g/dL Hct 32.0 L (40.0-54.0) % MCV 97 (80-98) fL MCH 34 H (27-31) pg MCHC 35 (32-36) % Plt Count 32 L (150-400) K/uL Neut % (Auto) 89 H (36-66) % Lymph % (Auto) 3 L (24-44) % Leslie % (Auto) 8 H (2-6) % Eos % (Auto) 0 L (2-4) % Baso % (Auto) 0 (0-1) % Sodium 133 L (140-148) mmol/L Potassium 5.6 H (3.6-5.2) mmol/L Chloride 101 (100-108) mmol/L Carbon Dioxide 25 (21-32) mmol/L Anion Gap 12.6 (5.0-14.0) mmol/L BUN 66 H (7-18) mg/dL Creatinine 2.2 H (0.8-1.3) mg/dL Est Cr Clr Drug Dosing 35.98 mL/min Estimated GFR (MDRD) 30 L (>60) Glucose 98 (74-106) mg/dL Calcium 8.0 L (8.5-10.1) mg/dL Total Bilirubin 4.6 H (0.2-1.0) mg/dL AST 153 H (15-37) U/L ALT 124 H (12-78) U/L Alkaline Phosphatase 253 H (46-116) U/L Total Protein 5.2 L (6.4-8.2) g/dL Albumin 1.7 L (3.4-5.0) g/dL Globulin 3.5 (2.3-3.5) g/dL Albumin/Globulin Ratio 0.5 L (1.2-2.2) Edd Results last 24 hrs: Microbiology 11/01/16 16:57 Fungal Culture - Preliminary Bronchial Alveolar Lavage - Mixed YEAST 11/01/16 17:13 Fungal Culture - Preliminary Peritoneal Fluid NO FUNGAL GROWTH AT 2 WEEKS 11/01/16 14:28 Fungal Culture - Preliminary Thoracic Fluid - Left NO FUNGAL GROWTH AT 2 WEEKS Med Orders - Current: Current Medications Acetaminophen (Tylenol) 650 mg PO Q4H PRN PRN Reason: Pain (Mild 1-3)/fever Last Admin: 11/08/16 21:02 Dose: 650 mg Albuterol (Ventolin Hfa) 0 gm INH Q4H PRN PRN Reason: sob Albuterol (Proventil Neb Soln) 2.5 mg NEB Q4H PRN PRN Reason: Shortness Of Breath/wheezing Last Admin: 11/07/16 21:53 Dose: 2.5 mg Albuterol/Ipratropium (Duoneb 3.0-0.5 Mg/3 Ml) 3 ml INH QIDRT [facility] Last Admin: 11/12/16 11:31 Dose: 3 ml Cholecalciferol (Vitamin D3) 1,000 units PO DAILY [facility] Last Admin: 11/12/16 08:13 Dose: 1,000 units Fluticasone Propionate (Flonase) 0 gm RUSSELL DAILY [facility] Last Admin: 11/12/16 08:15 Dose: 1 spray Folic Acid (Folic Acid) 1 mg PO DAILY [facility] Last Admin: 11/12/16 08:13 Dose: 1 mg Guaifenesin (Mucinex) 600 mg PO BID [facility] Last Admin: 11/12/16 08:13 Dose: 600 mg Guaifenesin/Codeine Phosphate (Robitussin Ac) 10 ml PO Q4H PRN PRN Reason: Cough Last Admin: 11/01/16 22:00 Dose: 10 ml Lactulose (Chronulac) 10 gm PO BID [facility] Last Admin: 11/12/16 08:15 Dose: 10 gm Lorazepam (Ativan) 0.5 - 1 mg IVPUSH Q2H PRN PRN Reason: Anxiety Last Admin: 11/03/16 02:23 Dose: 1 mg Magnesium Oxide (Magnesium Oxide) 400 mg PO BID [facility] Last Admin: 11/12/16 08:14 Dose: 400 mg Multivitamins/Minerals (Thera M Plus) 1 tab PO DAILY [facility] Last Admin: 11/12/16 08:14 Dose: 1 tab Ondansetron HCl (Zofran Odt) 4 mg PO Q6H PRN PRN Reason: Nausea able to take PO Prednisone (Prednisone) 10 mg PO DAILY@0800 [facility] Last Admin: 11/12/16 08:13 Dose: 10 mg Sodium Chloride (Saline Flush) 10 ml FLUSH ASDIRECTED PRN PRN Reason: Keep Vein Open Tamsulosin HCl (Flomax) 0.4 mg PO PCBREAKFAST [facility] Last Admin: 11/12/16 08:14 Dose: 0.4 mg Thiamine HCl (Vitamin B-1) 100 mg PO DAILY [facility] Last Admin: 11/12/16 08:13 Dose: 100 mg Zolpidem Tartrate (Ambien) 5 mg PO BEDTIME PRN PRN Reason: Insomnia Last Admin: 11/10/16 20:46 Dose: 5 mg Discontinued Medications Albuterol/Ipratropium (Duoneb 3.0-0.5 Mg/3 Ml) 3 ml NEB ONETIME ONE Stop: 10/30/16 15:58 Last Admin: 10/30/16 16:12 Dose: 3 ml Amoxicillin/Clavulanate Potassium (Augmentin 875 Mg/125 Mg) 1 tab PO BID [facility] Last Admin: 11/03/16 08:34 Dose: 1 tab Doxycycline Hyclate (Vibramycin) 100 mg PO Q12H [facility] Last Admin: 11/10/16 09:34 Dose: 100 mg Doxycycline Hyclate (Vibramycin) 100 mg PO BID@0800,2000 [facility] Last Admin: 11/12/16 08:15 Dose: 100 mg Fentanyl (Sublimaze) Confirm Administered Dose 100 mcg .ROUTE .STK-MED ONE Stop: 11/01/16 10:45 Fluticasone Propionate (Flonase) 0 gm RUSSELL DAILY [facility] Furosemide (Lasix) 40 mg PO BIDDIURETIC NEO Last Admin: 11/02/16 09:27 Dose: 40 mg Furosemide (Lasix) 80 mg PO BIDDIURETIC NEO Last Admin: 11/04/16 07:19 Dose: 80 mg Furosemide (Lasix) 40 mg IVPUSH Q8H [facility] Last Admin: 11/05/16 08:10 Dose: 40 mg Furosemide (Lasix) 40 mg IVPUSH Q12H NEO Furosemide (Lasix) 40 mg IVPUSH Q12H [facility] Last Admin: 11/06/16 07:38 Dose: 40 mg Furosemide (Lasix) 40 mg IVPUSH ONETIME ONE Stop: 11/07/16 09:01 Last Admin: 11/07/16 09:22 Dose: 40 mg Furosemide (Lasix) 40 mg IVPUSH NOW ONE Stop: 11/11/16 13:46 Last Admin: 11/11/16 14:37 Dose: Not Given Furosemide 20 mg/ Furosemide (40 mg) 60 mg PO ONETIME ONE Stop: 11/11/16 15:31 Last Admin: 11/11/16 15:07 Dose: 60 mg Sodium Chloride (Normal Saline) 1,000 mls @ 125 mls/hr IV ASDIRECTED NEO Stop: 10/31/16 02:08 Sodium Chloride (Normal Saline) 85 mls @ 3.5 mls/sec IV ASDIRECTED [facility] Last Admin: 10/31/16 08:02 Dose: 3.5 mls/sec Magnesium Sulfate 2 gm/ Premix 50 mls @ 25 mls/hr IV Q6H NEO Stop: 10/31/16 14:00 Last Admin: 10/31/16 10:43 Dose: 25 mls/hr Magnesium Sulfate 2 gm/ Sodium (Chloride) 54 mls @ 27 mls/hr IV Q6H NEO Stop: 11/01/16 06:59 Last Admin: 11/01/16 05:00 Dose: 27 mls/hr Ceftriaxone Sodium 2 gm/ (Sodium Chloride) 50 mls @ 100 mls/hr IV Q24H [facility] Last Admin: 11/03/16 11:57 Dose: 100 mls/hr Ceftriaxone Sodium 2 gm/ (Sodium Chloride) 50 mls @ 100 mls/hr IV Q24H [facility] Doxycycline Hyclate 100 mg/ (Sodium Chloride) 100 mls @ 100 mls/hr IV Q12H [facility] Last Admin: 11/07/16 09:47 Dose: 100 mls/hr Magnesium Sulfate 2 gm/ Premix 50 mls @ 25 mls/hr IV ONETIME ONE Stop: 11/06/16 11:59 Last Admin: 11/06/16 11:54 Dose: 25 mls/hr Sodium Chloride (Normal Saline) 1,000 mls @ 125 mls/hr IV ASDIRECTED [facility] Last Admin: 11/10/16 05:04 Dose: 125 mls/hr Sodium Chloride (Normal Saline) 1,000 mls @ 50 mls/hr IV ASDIRECTED [facility] Last Admin: 11/10/16 14:39 Dose: 50 mls/hr Iopamidol (Isovue-300 (61%)) 150 ml IV . DIRECTED PRN PRN Reason: RADIOLOGY EXAM Stop: 11/01/16 07:12 Last Admin: 10/31/16 08:02 Dose: 150 ml Levofloxacin (Levaquin) 250 mg PO Q24H [facility] Last Admin: 11/03/16 11:11 Dose: 250 mg Levofloxacin (Levaquin) 500 mg PO Q24H [facility] Last Admin: 11/05/16 11:35 Dose: 500 mg Lidocaine (Lidocaine 4% Top Soln) Confirm Administered Dose 4 ml .ROUTE .STK- MED ONE Stop: 11/01/16 14:32 Lidocaine HCl (Xylocaine 2% Jelly) 10 ml MUCMEM ONETIME ONE Stop: 10/30/16 23:34 Last Admin: 10/30/16 23:49 Dose: 10 ml Lidocaine HCl (Xylocaine 4% Top Soln) Confirm Administered Dose 50 ml .ROUTE .STK-MED ONE Stop: 11/01/16 08:36 Last Admin: 11/01/16 16:35 Dose: 50 ml Lidocaine HCl (Xylocaine 2% Jelly) 10 ml MUCMEM ONETIME ONE Stop: 11/07/16 00:49 Last Admin: 11/07/16 01:04 Dose: Not Given Lidocaine HCl (Xylocaine 2% Jelly) Confirm Administered Dose 10 ml .ROUTE .STK- MED ONE Stop: 11/07/16 00:55 Last Admin: 11/07/16 01:04 Dose: 10 ml Methylprednisolone Sodium Succinate (Solu-Medrol) 62.5 mg IVPUSH Q8H NEO Stop: 10/31/16 02:01 Last Admin: 10/31/16 02:12 Dose: 62.5 mg Midazolam HCl (Versed 1 Mg/Ml) Confirm Administered Dose 2 mg .ROUTE .STK-MED ONE Stop: 11/01/16 10:45 Pantoprazole Sodium (Protonix) 40 mg PO ACBREAKFAST [facility] Last Admin: 11/12/16 08:15 Dose: 40 mg Prednisone (Prednisone) 40 mg PO DAILY [facility] Last Admin: 11/02/16 09:28 Dose: 40 mg Prednisone (Prednisone) 20 mg PO DAILY [facility] Last Admin: 11/07/16 09:25 Dose: 20 mg Prednisone (Prednisone) 10 mg PO DAILY [facility] Last Admin: 11/07/16 13:52 Dose: 10 mg Propofol (Diprivan 20 Ml) Confirm Administered Dose 200 mg .ROUTE .STK-MED ONE Stop: 11/01/16 10:45 Sodium Chloride (Saline Flush) 10 ml FLUSH ONETIME ONE Stop: 10/31/16 07:12 Last Admin: 10/31/16 08:01 Dose: 10 ml Spironolactone (Aldactone) 25 mg PO BIDDIURETIC [facility] Last Admin: 11/02/16 09:27 Dose: 25 mg Spironolactone (Aldactone) 50 mg PO BIDDIURETIC [facility] Last Admin: 11/12/16 08:15 Dose: 50 mg - Exam Quality Assessment: No: supplemental oxygen General: alert, oriented, cooperative, no acute distress Neck: supple Lungs: Clear to auscultation, Normal respiratory effort, Decreased breath sounds (left lung base) Cardiovascular: regular rate, regular rhythm Abdomen: bowel sounds present, soft, distension. No: tenderness Extremities: no cyanosis, edema (pitting edema from both feet all the way proximal to the lower abdomen) Skin: warm, dry, ecchymosis (right lateral forehead) Psy/Mental Status: alert, normal affect - Problem List & Annotations (1) Right upper lobe pneumonia SNOMED Code(s): 398260933 Code(s): J18.1 - LOBAR PNEUMONIA, UNSPECIFIED ORGANISM Status: Acute Current Visit: Yes Qualifiers: Pneumonia type: due to unspecified organism Qualified Code(s): J18.1 - Lobar pneumonia, unspecified organism (2) Acute exacerbation of chronic obstructive airways disease SNOMED Code(s): 206031759 Code(s): J44.1 - CHRONIC OBSTRUCTIVE PULMONARY DISEASE W (ACUTE) EXACERBATION Status: Acute Current Visit: Yes (3) Cirrhosis of liver SNOMED Code(s): 00936645 Code(s): K74.60 - UNSPECIFIED CIRRHOSIS OF LIVER Status: Acute Current Visit: Yes Qualifiers: Hepatic cirrhosis type: unspecified hepatic cirrhosis Ascites presence: with ascites Qualified Code(s): K74.60 - Unspecified cirrhosis of liver (4) Anasarca SNOMED Code(s): 202342783, 274107722 Code(s): R60.1 - GENERALIZED EDEMA Status: Acute Current Visit: Yes (5) Acute kidney injury SNOMED Code(s): 40552345 Code(s): N17.9 - ACUTE KIDNEY FAILURE, UNSPECIFIED Status: Acute Current Visit: Yes (6) Hyperbilirubinemia SNOMED Code(s): 73392881 Code(s): E80.6 - OTHER DISORDERS OF BILIRUBIN METABOLISM Status: Acute Current Visit: Yes - Problem List Review Problem List Initiated/Reviewed/Updated: Yes - My Orders Last 24 Hours: My Active Orders 11/13/16 05:00 CBC W/O DIFF,HEMOGRAM [HEME] Timed (1) COMPREHENSIVE METABOLIC PN,CMP [CHEM] Timed INR,PT,PROTHROMBIN TIME [COAG] Timed MAGNESIUM [CHEM] Timed - Plan Plan:: Assessment and plan - Anasarca - probably related to liver disease. Using mechanical methods including ULISES wraps of the legs. Echocardiogram completed and did not show evidence for congestive heart failure. Renal function remains compromised but has been stable. his edema is slowly improving but he has significant edema remaining. -hold diuretics for today -1200 mL daily fluid restriction -2 g sodium diet -ULISES wraps to both legs from foot to thigh Cirrhosis and possible alcoholic hepatitis - alcoholic cirrhosis is suspected and workup for paraproteinemia has been unremarkable. Complicated by anasarca, coagulopathy and portal hypertension based on CT scan. AST, ALT and bilirubin levels have been rising. This could be related to worsening liver disease versus potentially a medication side effect. we may need to consider transfer to a multiple drill operator versus increasing prednisone to see if this will help with inflammation since he seemed to do better at a higher dose. -discontinue doxycycline, proton pump inhibitor and spironolactone -Labs in the morning -Saline lock IV Acute kidney injury - creatinine level has stabilized. -Saline lock IV -hold diuretics today -Repeat labs in the morning Right upper lobe pneumonia with acute exacerbation of asthma/COPD - he should have received adequate antibiotic therapy. Respiratory status stable and no fevers. -discontinue doxycycline -Continue prednisone with taper -Scheduled and as needed nebulizers -Supplement oxygen if needed Delirium - better but not completely resolved. -Lactulose twice daily Urinary retention - Ojeda catheter has been removed and thus far has been able to urinate adequately -tamsulosin 0.4 mg by mouth daily Maintenance issues - - DVT prophylaxis - mechanical with thrombocytopenia - GI prophylaxis - discontinue PPI - Nutrition - low sodium diet with fluid restriction - Ojeda catheter - no indication at the present time Disposition - anticipate discharge to snf after he has completed his hospital stay
[2016-11-13] MEDS: Albuterol/Ipratropium 3.0-0.5 MG/3 ML Neb Soln INH SCH ×2 (07:15→10:51)
[2016-11-13] MEDS: predniSONE 10 MG Tab PO SCH (08:06)
[2016-11-13] MEDS: Lactulose Soln 10 GM/15 ML 15 ML UD Cup PO SCH (08:07)
[2016-11-13] MEDS: Fluticasone Propionate Nasal Spray 16 GM Bottle NAS SCH (08:07)
[2016-11-13] MEDS: Magnesium Oxide 400 MG Tab PO SCH (08:08)
[2016-11-13] MEDS: Folic Acid 1 MG Tab PO SCH (08:08)
[2016-11-13] MEDS: Tamsulosin 0.4 MG Cap.ER PO SCH (08:08)
[2016-11-13] MEDS: guaiFENesin 600 MG Tab.ER PO SCH (08:09)
[2016-11-13] MEDS: Cholecalciferol (Vitamin D3) 1,000 Unit Tab PO SCH (08:09)
[2016-11-13] MEDS: Multivitamins with Iron/Calcium/Folic Acid/Minerals Tab PO SCH (08:09)
[2016-11-13] MEDS: Thiamine 100 MG Tab PO SCH (08:12)
--- NOTE | 2016-11-13 11:27 | PCM.DCSUM1 ---
Discharge Summary - Hospital Course Brief History: 66 year old male with hx of heavy alcohol use and recent diagnosis of cirrhosis was admitted for management of right upper lobe pneumonia and COPD exacerbation as well as expedited cirrhosis workup - Discharge Data Discharge Date: 11/13/16 Discharge Disposition: DC/Tfer to Acute Hospital 02 Condition: Poor - Discharge Diagnosis/Problem(s) (1) Right upper lobe pneumonia SNOMED Code(s): 059814418 ICD Code: J18.1 - LOBAR PNEUMONIA, UNSPECIFIED ORGANISM Status: Acute Current Visit: Yes Qualifiers: Pneumonia type: due to unspecified organism Qualified Code(s): J18.1 - Lobar pneumonia, unspecified organism (2) Acute exacerbation of chronic obstructive airways disease SNOMED Code(s): 323169089 ICD Code: J44.1 - CHRONIC OBSTRUCTIVE PULMONARY DISEASE W (ACUTE) EXACERBATION Status: Acute Current Visit: Yes (3) Cirrhosis of liver SNOMED Code(s): 01105727 ICD Code: K74.60 - UNSPECIFIED CIRRHOSIS OF LIVER Status: Acute Current Visit: Yes Qualifiers: Hepatic cirrhosis type: alcoholic cirrhosis Ascites presence: with ascites Qualified Code(s): K70.31 - Alcoholic cirrhosis of liver with ascites (4) Anasarca SNOMED Code(s): 454675378, 633673100 ICD Code: R60.1 - GENERALIZED EDEMA Status: Acute Current Visit: Yes (5) Acute kidney injury SNOMED Code(s): 61983759 ICD Code: N17.9 - ACUTE KIDNEY FAILURE, UNSPECIFIED Status: Acute Current Visit: Yes (6) Hyperbilirubinemia SNOMED Code(s): 05850399 ICD Code: E80.6 - OTHER DISORDERS OF BILIRUBIN METABOLISM Status: Acute Current Visit: Yes (7) Hepatorenal syndrome SNOMED Code(s): 07518614 ICD Code: K76.7 - HEPATORENAL SYNDROME Status: Suspected Current Visit: Yes (8) Alcoholic hepatitis with ascites SNOMED Code(s): 816651427 ICD Code: K70.11 - ALCOHOLIC HEPATITIS WITH ASCITES Status: Suspected Current Visit: Yes - Patient Summary/Data Operative Procedure(s) Performed: Paracentesis. Thoracentesis. Bronchoscopy Consults: Consultations 11/02/16 07:00 Consult to Dietary [Consult to In[employer]] [CONS] Routine Comment: Physician Instructions: Quantity: Reason for Consult: Low sodium diet with cirrhosis 11/05/16 07:51 PT Evaluation and Treatment [CONS] Routine Please Evaluate and Treat. PT Reason for Consult: Strengthening Special Instructions: pt lives at home, using assit of 2 at this time to transfer This query below is only for informational purposes and is not editable. Admission Diagnosis/Problem: Acute bronchitis Hospital Course: Barry presented to the emergency room at the recommendation of the surgery clinic where he presented for thoracentesis. Upon arrival to the clinic he was noted to be very short of breath and was sent for urgent evaluation. Workup in the emergency room revealed a left pleural effusion which was the proposed target for the thoracentesis as well as a possible right upper lobe pneumonia. Barry was admitted to the hospital for management of the pneumonia with hypoxia and significant symptoms in addition to expedited workup for his recently diagnosed cirrhosis of the liver. Antibiotics were initiated. Dr. Caputo was consult and and a left thoracentesis was performed in addition to a bronchoscopy and paracentesis. he had significant wheezing at the time of presentation and was started on higher dose prednisone at 50 mg daily. No organisms were seen with any of the fluid samples after laboratory analysis. At the time of presentation he had a mild elevation of the bilirubin and his creatinine was 1.3 with a baseline of 0.7 a couple months earlier. The patient had impressive anasarca with pitting edema all the way from his feet up to near his chest. I elected to utilize ULISES wraps to help with the lower extremity edema in addition to diuretics. we placed the ULISES wraps in a staged fashion lower leg wraps one day and lower leg and I wraps the next day. Diuretics were titrated over the next several days. We did see some small but seemingly steady improvement in lower extremity edema over the first few days of hospitalization. His respiratory status did improve following thoracentesis and initiation of antibiotics. We're able to wean him off of the supplemental oxygen. Kidney function remained stable for the first few days and things seem to be improving. On hospital day 4 patient developed some mild confusion. Creatinine level had increased very slightly from admission. The remainder of his laboratory studies were normal with the exception of his platelets which were drifting down. He had not been having any fevers. His ammonia level was normal. Head CT did not show any acute pathology. He was not taking any narcotics. A CIWA level was checked and this was mildly elevated at 8. He did receive a dose or 2 of lorazepam but really did not ever display any evidence for alcohol withdrawal. His last reported drink was 3 weeks prior to admission. The mild confusion did seem to improve over the next few days but had not completely resolved. On hospital day 7 we attempted to increase his diuretics and had a good response to diuresis. His lower extremity edema as well as anasarca seem to be improving. with improvement in his respiratory status after the first week his prednisone Taper had been started and he seemed to be tolerating this well. Unfortunately about this time his creatinine level jumped up to greater than 2. His AST and ALT as well as his bilirubin levels were trending up during this time as well. There is no obvious cause of for this based on examination at that time. We have not initiated any new medications. As the week went on diuretics were decreased with a rising creatinine level. This caused the rise to level off but that we did not see any improvement in the kidney function. His urine output has been decreasing over the last few days of the hospital stay. His mental status has never quite returned to baseline. Despite normal ammonia levels we did initiate lactulose which seemed to help a little bit. his platelet level has been slowly trending down but there is been no evidence for bleeding. At this time I am concerned that we're losing ground rather than making progress. Attempts at diuresis have not been successful in have led to worsening renal function. His bilirubin, AST and ALT levels have been rising over the past week without an obvious cause. I did discontinue his proton pump inhibitor and antibiotics yesterday with the hope that this may be contributing and stopping them only to improvement. His platelet levels have been trending down. Mental status has not improved as much as I would've liked and he still has very impressive edema which will limit his recovery. I'm not sure that there is a fix for this and this may be just a rapid progression of his liver disease. With a recent diagnosis and the fairly quick progression in a gentleman who is full code I did reach out to [facility] in [place]. We have not been able to provide much improvement here and I was hoping for a second opinion and potentially subspecialty consultation. The [facility] graciously agreed to accept his care and transfer. He'll be transferred there via ambulance for further workup and treatment. His cirrhosis is presumed to be an alcoholic with heavy use noted in his history. His last drink is reported as about 5 weeks ago or 3 weeks prior to admission. He does have portal hypertension noted on CT scan and significant cirrhosis on CT as well. There is no evidence for paraproteinemia and hepatitis B and C. serologies were negative. Protein electrophoresis both from serum and urine were unremarkable. His MELD/Unos score on the day of discharge is 26. - Patient Instructions Diet: Low Sodium Fluid Restriction: 1200 ml Activity: As Tolerated Showering/Bathing: May Shower Notify Provider of: Fever, Increased Pain, Nausea and/or Vomiting Other/Special Instructions: Transfer to [facility] in [place] - Dr Warren accepting physician - Discharge Plan Home Medications: Home Meds Albuterol Sulfate [Proair Hfa] 1 - 2 puff INH Q4H PRN 10/30/16 [History] Calcium Carbonate 600 mg PO DAILY 10/30/16 [History] Cholecalciferol (Vitamin D3) [Vitamin D3] 1,000 mg PO DAILY 10/30/16 [History] Fluticasone Propionate [Flonase Allergy Relief] 2 spray RUSSELL DAILY 10/30/16 [ History] Folic Acid 1 mg PO DAILY 10/30/16 [History] Furosemide 20 mg PO DAILY 10/30/16 [History] Ipratropium/Albuterol Sulfate [Iprat-Albut 0.5-3(2.5) MG/3 ML] 1 puff INH Q4H PRN 10/30/16 [History] Multivitamin [Multivitamins] 1 tab PO DAILY 10/30/16 [History] Potassium Chloride 20 meq PO DAILY 10/30/16 [History] Spironolactone [Aldactone] 50 mg PO DAILY 10/30/16 [History] Thiamine [Vitamin B-1] 100 mg PO DAILY 10/30/16 [History] predniSONE [Prednisone] 40 mg PO ASDIRECTED 10/30/16 [History] Patient Handouts: Gabapentin capsules or tablets Referrals: Hever Robison MD [Physician] - (follow up after the hospital stay at [facility]) - Discharge Summary/Plan Comment DC Time >30 min.: Yes (60 - transfer to acute hospital ) - Patient Data Vitals - Most Recent: Last Vital Signs Temp 35.1 C L 11/13/16 10:39 Pulse 90 11/13/16 10:52 Resp 18 11/13/16 10:39 BP 129/101 H 11/13/16 10:39 Pulse Ox 94 L 11/13/16 10:39 Weight - Most Recent: 121.88 kg I&O - Last 24 hours: Intake & Output 11/12/16 11/13/16 11/13/16 22:59 06:59 14:59 Intake Total 100 240 Output Total 200 200 Balance -100 40 Lab Results - Last 24 hrs: Laboratory Results - last 24 hr 11/13/16 11/13/16 11/13/16 Range/Units 04:45 04:45 04:55 WBC 11.8 H (4.5-11.0) K/uL RBC 3.16 L (4.30-5.90) M/uL Hgb 10.9 L (12.0-15.0) g/dL Hct 30.4 L (40.0-54.0) % MCV 96 (80-98) fL MCH 35 H (27-31) pg MCHC 36 (32-36) % Plt Count 29 L* (150-400) K/uL PT 18.1 H (9.5-12.0) sec INR 1.68 H (0.80-1.20) Sodium 130 L (140-148) mmol/L Potassium 5.4 H (3.6-5.2) mmol/L Chloride 98 L (100-108) mmol/L Carbon Dioxide 25 (21-32) mmol/L Anion Gap 12.4 (5.0-14.0) mmol/L BUN 72 H (7-18) mg/dL Creatinine 2.3 H (0.8-1.3) mg/dL Est Cr Clr Drug Dosing 34.42 mL/min Estimated GFR (MDRD) 29 L (>60) Glucose 89 (74-106) mg/dL Calcium 8.2 L (8.5-10.1) mg/dL Magnesium 2.1 (1.8-2.4) mg/dL Total Bilirubin 4.7 H (0.2-1.0) mg/dL AST 152 H (15-37) U/L ALT 124 H (12-78) U/L Alkaline Phosphatase 255 H (46-116) U/L Total Protein 4.9 L (6.4-8.2) g/dL Albumin 1.7 L (3.4-5.0) g/dL Globulin 3.2 (2.3-3.5) g/dL Albumin/Globulin Ratio 0.5 L (1.2-2.2) GABINO Results - Last 24 hrs: Microbiology 11/01/16 16:57 Fungal Culture - Preliminary Bronchial Alveolar Lavage - Mixed YEAST 11/01/16 17:13 Fungal Culture - Preliminary Peritoneal Fluid NO FUNGAL GROWTH AT 2 WEEKS 11/01/16 14:28 Fungal Culture - Preliminary Thoracic Fluid - Left NO FUNGAL GROWTH AT 2 WEEKS Med Orders - Current: Current Medications Acetaminophen (Tylenol) 650 mg PO Q4H PRN PRN Reason: Pain (Mild 1-3)/fever Last Admin: 11/08/16 21:02 Dose: 650 mg Albuterol (Ventolin Hfa) 0 gm INH Q4H PRN PRN Reason: sob Albuterol (Proventil Neb Soln) 2.5 mg NEB Q4H PRN PRN Reason: Shortness Of Breath/wheezing Last Admin: 11/07/16 21:53 Dose: 2.5 mg Albuterol/Ipratropium (Duoneb 3.0-0.5 Mg/3 Ml) 3 ml INH QIDRT [facility] Last Admin: 11/13/16 10:51 Dose: 3 ml Cholecalciferol (Vitamin D3) 1,000 units PO DAILY [facility] Last Admin: 11/13/16 08:09 Dose: 1,000 units Fluticasone Propionate (Flonase) 0 gm RUSSELL DAILY [facility] Last Admin: 11/13/16 08:07 Dose: 1 spray Folic Acid (Folic Acid) 1 mg PO DAILY [facility] Last Admin: 11/13/16 08:08 Dose: 1 mg Guaifenesin (Mucinex) 600 mg PO BID [facility] Last Admin: 11/13/16 08:09 Dose: 600 mg Guaifenesin/Codeine Phosphate (Robitussin Ac) 10 ml PO Q4H PRN PRN Reason: Cough Last Admin: 11/01/16 22:00 Dose: 10 ml Lactulose (Chronulac) 10 gm PO BID [facility] Last Admin: 11/13/16 08:07 Dose: 10 gm Lorazepam (Ativan) 0.5 - 1 mg IVPUSH Q2H PRN PRN Reason: Anxiety Last Admin: 02/18/17 02:23 Dose: 1 mg Magnesium Oxide (Magnesium Oxide) 400 mg PO BID [facility] Last Admin: 11/13/16 08:08 Dose: 400 mg Multivitamins/Minerals (Thera M Plus) 1 tab PO DAILY [facility] Last Admin: 11/13/16 08:09 Dose: 1 tab Ondansetron HCl (Zofran Odt) 4 mg PO Q6H PRN PRN Reason: Nausea able to take PO Prednisone (Prednisone) 10 mg PO DAILY@0800 [facility] Last Admin: 11/13/16 08:06 Dose: 10 mg Sodium Chloride (Saline Flush) 10 ml FLUSH ASDIRECTED PRN PRN Reason: Keep Vein Open Tamsulosin HCl (Flomax) 0.4 mg PO PCBREAKFAST [facility] Last Admin: 11/13/16 08:08 Dose: 0.4 mg Thiamine HCl (Vitamin B-1) 100 mg PO DAILY [facility] Last Admin: 11/13/16 08:12 Dose: 100 mg Zolpidem Tartrate (Ambien) 5 mg PO BEDTIME PRN PRN Reason: Insomnia Last Admin: 11/10/16 20:46 Dose: 5 mg Discontinued Medications Albuterol/Ipratropium (Duoneb 3.0-0.5 Mg/3 Ml) 3 ml NEB ONETIME ONE Stop: 10/30/16 15:58 Last Admin: 10/30/16 16:12 Dose: 3 ml Amoxicillin/Clavulanate Potassium (Augmentin 875 Mg/125 Mg) 1 tab PO BID [facility] Last Admin: 11/03/16 08:34 Dose: 1 tab Doxycycline Hyclate (Vibramycin) 100 mg PO Q12H [facility] Last Admin: 11/10/16 09:34 Dose: 100 mg Doxycycline Hyclate (Vibramycin) 100 mg PO BID@0800,1999 [facility] Last Admin: 11/12/16 08:15 Dose: 100 mg Fentanyl (Sublimaze) Confirm Administered Dose 100 mcg .ROUTE .STK-MED ONE Stop: 11/01/16 10:45 Fluticasone Propionate (Flonase) 0 gm RUSSELL DAILY [facility] Furosemide (Lasix) 40 mg PO BIDDIURETIC [facility] Last Admin: 11/02/16 09:27 Dose: 40 mg Furosemide (Lasix) 80 mg PO BIDDIURETIC [facility] Last Admin: 11/04/16 07:19 Dose: 80 mg Furosemide (Lasix) 40 mg IVPUSH Q8H [facility] Last Admin: 11/05/16 08:10 Dose: 40 mg Furosemide (Lasix) 40 mg IVPUSH Q12H NEO Furosemide (Lasix) 40 mg IVPUSH Q12H NEO Last Admin: 11/06/16 07:38 Dose: 40 mg Furosemide (Lasix) 40 mg IVPUSH ONETIME ONE Stop: 11/07/16 09:01 Last Admin: 11/07/16 09:22 Dose: 40 mg Furosemide (Lasix) 40 mg IVPUSH NOW ONE Stop: 11/11/16 13:46 Last Admin: 11/11/16 14:37 Dose: Not Given Furosemide 20 mg/ Furosemide (40 mg) 60 mg PO ONETIME ONE Stop: 11/11/16 15:31 Last Admin: 11/11/16 15:07 Dose: 60 mg Sodium Chloride (Normal Saline) 1,000 mls @ 125 mls/hr IV ASDIRECTED [facility] Stop: 10/31/16 02:08 Sodium Chloride (Normal Saline) 85 mls @ 3.5 mls/sec IV ASDIRECTED [facility] Last Admin: 10/31/16 08:02 Dose: 3.5 mls/sec Magnesium Sulfate 2 gm/ Premix 50 mls @ 25 mls/hr IV Q6H [facility] Stop: 10/31/16 14:00 Last Admin: 10/31/16 10:43 Dose: 25 mls/hr Magnesium Sulfate 2 gm/ Sodium (Chloride) 54 mls @ 27 mls/hr IV Q6H [facility] Stop: 11/01/16 06:59 Last Admin: 11/01/16 05:00 Dose: 27 mls/hr Ceftriaxone Sodium 2 gm/ (Sodium Chloride) 50 mls @ 100 mls/hr IV Q24H [facility] Last Admin: 11/03/16 11:57 Dose: 100 mls/hr Ceftriaxone Sodium 2 gm/ (Sodium Chloride) 50 mls @ 100 mls/hr IV Q24H [facility] Doxycycline Hyclate 100 mg/ (Sodium Chloride) 100 mls @ 100 mls/hr IV Q12H [facility] Last Admin: 11/07/16 09:47 Dose: 100 mls/hr Magnesium Sulfate 2 gm/ Premix 50 mls @ 25 mls/hr IV ONETIME ONE Stop: 11/06/16 11:59 Last Admin: 11/06/16 11:54 Dose: 25 mls/hr Sodium Chloride (Normal Saline) 1,000 mls @ 125 mls/hr IV ASDIRECTED [facility] Last Admin: 11/10/16 05:04 Dose: 125 mls/hr Sodium Chloride (Normal Saline) 1,000 mls @ 50 mls/hr IV ASDIRECTED [facility] Last Admin: 11/10/16 14:39 Dose: 50 mls/hr Iopamidol (Isovue-300 (61%)) 150 ml IV . DIRECTED PRN PRN Reason: RADIOLOGY EXAM Stop: 11/01/16 07:12 Last Admin: 10/31/16 08:02 Dose: 150 ml Levofloxacin (Levaquin) 250 mg PO Q24H [facility] Last Admin: 11/03/16 11:11 Dose: 250 mg Levofloxacin (Levaquin) 500 mg PO Q24H [facility] Last Admin: 11/05/16 11:35 Dose: 500 mg Lidocaine (Lidocaine 4% Top Soln) Confirm Administered Dose 4 ml .ROUTE .STK- MED ONE Stop: 11/01/16 14:32 Lidocaine HCl (Xylocaine 2% Jelly) 10 ml MUCMEM ONETIME ONE Stop: 10/30/16 23:34 Last Admin: 10/30/16 23:49 Dose: 10 ml Lidocaine HCl (Xylocaine 4% Top Soln) Confirm Administered Dose 50 ml .ROUTE .STK-MED ONE Stop: 11/01/16 08:36 Last Admin: 11/01/16 16:35 Dose: 50 ml Lidocaine HCl (Xylocaine 2% Jelly) 10 ml MUCMEM ONETIME ONE Stop: 11/07/16 00:49 Last Admin: 11/07/16 01:04 Dose: Not Given Lidocaine HCl (Xylocaine 2% Jelly) Confirm Administered Dose 10 ml .ROUTE .STK- MED ONE Stop: 11/07/16 00:55 Last Admin: 11/07/16 01:04 Dose: 10 ml Methylprednisolone Sodium Succinate (Solu-Medrol) 62.5 mg IVPUSH Q8H [facility] Stop: 10/31/16 02:01 Last Admin: 10/31/16 02:12 Dose: 62.5 mg Midazolam HCl (Versed 1 Mg/Ml) Confirm Administered Dose 2 mg .ROUTE .STK-MED ONE Stop: 11/01/16 10:45 Pantoprazole Sodium (Protonix) 40 mg PO ACBREAKFAST [facility] Last Admin: 11/12/16 08:15 Dose: 40 mg Prednisone (Prednisone) 40 mg PO DAILY [facility] Last Admin: 11/02/16 09:28 Dose: 40 mg Prednisone (Prednisone) 20 mg PO DAILY [facility] Last Admin: 11/07/16 09:25 Dose: 20 mg Prednisone (Prednisone) 10 mg PO DAILY [facility] Last Admin: 11/07/16 13:52 Dose: 10 mg Propofol (Diprivan 20 Ml) Confirm Administered Dose 200 mg .ROUTE .STK-MED ONE Stop: 11/01/16 10:45 Sodium Chloride (Saline Flush) 10 ml FLUSH ONETIME ONE Stop: 10/31/16 07:12 Last Admin: 10/31/16 08:01 Dose: 10 ml Spironolactone (Aldactone) 25 mg PO BIDDIURETIC [facility] Last Admin: 11/02/16 09:27 Dose: 25 mg Spironolactone (Aldactone) 50 mg PO BIDDIURETIC [facility] Last Admin: 11/12/16 08:15 Dose: 50 mg *Q Meaningful Use (DIS) - VTE *Q VTE Criteria *Q: VTE Mechanical Contraindications *Q: Bilateral Lower Edema VTE Pharmacological Contraindications *Q: Thrombocytopenia - Stroke *Q Stroke Criteria *Q: - AMI *Q AMI Criteria *Q:
[2016-11-13 11:37] VITALS: BP 122/71
--- NOTE | 2016-11-26 10:24 | OR ---
DATE OF PROCEDURE: 11/01/2016 PROCEDURES: 1. Thoracentesis. 2. Bronchoscopy. 3. Paracentesis. COMPLICATIONS: None. BOAT DETAILER: None. ANESTHETIC: MAC/LOCAL. INDICATIONS: This is a 66-year-old male, who has a heavy alcohol use, who subsequently developed cirrhosis. The patient also developed a COPD exacerbation and additionally had a right upper lobe pneumonia. The patient required draining fluid of his chest due to the fluid accumulation secondary to COPD/pneumonia. He required bronchoscopy for diagnosis of his pneumonia and antibiotic selection and he required the paracentesis due to cirrhotic liver disease resulting in a large amount of cirrhotic fluid of the abdomen. COMPLICATION: None. FINDINGS: 1. Approximately 1200 mL of thoracenteses fluid which is straw colored. 2. Right upper lobe mucus consistent with pneumonia (specimen obtained for culture). 3. Approximately 3000 mL of straw-colored fluid. Of note, from the abdomen. PROCEDURE IN DETAIL: The patient was placed in upright position over a Cuadra stand, first to perform a thoracentesis. This was performed by prepping and draping. The ultrasound was used was used to lena to maximal fluid collection. This was anesthetized with lidocaine and needle was introduced to anesthetize above the rib. As the sheath was introduced, the needle was withdrawn. This was then hooked to a vacuum bottle and the aforementioned fluid was removed. This will also be sent for culture. Sheath and device removed. Direct pressure was held for 10 minutes. Dressings were applied. The patient was placed in supine position. MAC anesthetic was introduced. The bronchoscopy was performed next. In the right upper lobe there was inflammation consistent with pneumonia along with mucus consistent with pneumonia, this was then suctioned for culture. Paracentesis performed next. This was performed in a similar manner of thoracentesis with respect to prepping and draping the skin. This was then followed by anesthetizing with lidocaine, a single megan was created using 11 blade and as the sheath was introduced, the needle was withdrawn. The aforementioned fluid was removed. This was then discarded as it was known cirrhotic fluid. Dressings were applied. The patient tolerated the procedure well. Jesse Caputo MD /[id number]
== END 2016-11-13 12:45 | DRG 139 ==
LOC: JP.ED 14:53 → JP.MS 17:02
PROVIDERS: ADMIT Internal Medicine; ATTEND Internal Medicine
PROC: 0BJ08ZZ Inspection of Tracheobronchial Tree, Via Natural or Artificial Opening Endoscopic (ICD-10-PCS; principal; 2016-11-01)
PROC: 0W9G3ZZ Drainage of Peritoneal Cavity, Percutaneous Approach (ICD-10-PCS; principal; 2016-11-01)
PROC: 0W9B3ZX Drainage of Left Pleural Cavity, Percutaneous Approach, Diagnostic (ICD-10-PCS; principal; 2016-11-01)
PROC: 0B9C8ZX Drainage of Right Upper Lung Lobe, Via Natural or Artificial Opening Endoscopic, Diagnostic (ICD-10-PCS; principal; 2016-11-01)
DX: J18.9 Pneumonia, unspecified organism (principal); J44.0 Chronic obstructive pulmonary disease with (acute) lower respiratory infection; J20.9 Acute bronchitis, unspecified; J44.1 Chronic obstructive pulmonary disease with (acute) exacerbation; Z87.891 Personal history of nicotine dependence; N17.9 Acute kidney failure, unspecified; K70.31 Alcoholic cirrhosis of liver with ascites; E80.6 Other disorders of bilirubin metabolism; R60.1 Generalized edema; E86.9 Volume depletion, unspecified; D69.6 Thrombocytopenia, unspecified; J91.8 Pleural effusion in other conditions classified elsewhere; K70.11 Alcoholic hepatitis with ascites; K76.7 Hepatorenal syndrome; K76.6 Portal hypertension; F10.21 Alcohol dependence, in remission; G31.2 Degeneration of nervous system due to alcohol; B95.7 Other staphylococcus as the cause of diseases classified elsewhere; Z16.23 Resistance to quinolones and fluoroquinolones; R41.0 Disorientation, unspecified; R31.9 Hematuria, unspecified; R33.9 Retention of urine, unspecified; I49.1 Atrial premature depolarization; I87.2 Venous insufficiency (chronic) (peripheral); E66.9 Obesity, unspecified; Z68.30 Body mass index [BMI] 30.0-30.9, adult; W18.30XA Fall on same level, unspecified, initial encounter; Y92.239 Unspecified place in hospital as the place of occurrence of the external cause; S00.81XA Abrasion of other part of head, initial encounter; S40.819A Abrasion of unspecified upper arm, initial encounter; Z79.82 Long term (current) use of aspirin; Z91.09 Other allergy status, other than to drugs and biological substances
CPT/HCPCS: 36415; 70450; 71010; 71010-26; 71020; 71020-26; 71260; 71260-26; 74177; 74177-26; 76705; 76705-26; 80048; 80053; 81001; 82140; 83735; 83880; 84165; 84166; 84443; 85025; 85027; 85610; 85651; 86140; 86334; 86704; 86803; 87015; 87070; 87075; 87077; 87102; 87116; 87186; 87205; 87206; 87220; 87340; 88112; 88305; 93005; 93306; 94640; 94640-76; 97110-GP; 97163-GP; 97530-GP; 99285-25; A9270-GY; J0696; J1940; J2060; J2250; J2704; J2930; J3010; J3475; J7030; J7040; J7050; J7620